=== PATIENT | male | born 1965 | race Caucasian/White ===

== ENCOUNTER → 2018-06-07 07:00 | Outpatient (CLI) | payer BC, SELFPAY ==
--- NOTE | 2018-06-07 07:03 | CA_ITS ---
PROCEDURE: 2-D M-mode and color Doppler study INDICATIONS FOR THE TEST: Chest pain + COPD+ Heart Murmur Tobacco Smoking Palpitations Fatigue Syncope Edema Hypertension+Diabetes Mellitus Rheumatic Fever SOB DORAN Obesity Hyperlipidemia+ Family History HD Additional History WARREN, CAD, CABGX4 PATIENT INFORMATION HEIGHT: 73 WEIGHT:252 GENDER: Male B/P:122/85 2-D/M-MODE INTERPRETATION: 2-D MEASUREMENTS OBSERVED VALUES IN CMS Right Ventricular Dimension (RVDd) 2.4 Interventricular Septum (Thickness)(IVsd) 1.3 Left Ventricular Internal Dimensions(LVIDd) 4.9 Left Ventricular Posterior Wall (Thickness)(LVPWd) 1.0 Aortic Root 4.4 Aortic Cusp Separation 2.2 Left Atrial Dimensions (LAD) 3.0 2D 1. Left atrium is mildly enlarged, left ventricle is normal size, mild concentric left ventricular hypertrophy, visually estimated ejection fraction 55% with no obvious regional wall motion abnormality. 2. The right atrium and right ventricle are normal size and contractility. 3. The aortic valve is minimally thickened and fibrosed. 4. The mitral and tricuspid valve leaflets are grossly normal. 5. The pulmonic valve is poorly visualized. 6. No significant pericardial effusion noted. DOPPLER INTERROGATION: Doppler interrogation of the aortic, mitral and tricuspid valvular presence of mild mitral and tricuspid regurgitation, tricuspid regurgitant jet velocity is insufficient for calculation of the right ventricular systolic pressure, grade 1 diastolic dysfunction seen with tissue Doppler evidence of raised left atrial pressure. CONCLUSION: 1. Mildly enlarged left atrium, normal left ventricular size, mild concentric left ventricular hypertrophy, visually estimated ejection fraction 55% with no obvious regional wall motion abnormality, grade 1 diastolic dysfunction seen with tissue Doppler evidence of raised left atrial pressure. 2. Mild mitral and tricuspid regurgitation 3. No significant pericardial effusion noted.
--- NOTE | 2018-06-07 07:03 | NM_ITS ---
History and Indications: Hypertension, tobacco use, family history, chest pain, shortness of breath, palpitations and fatigue Procedure: Patient received a 0.4 mg of Lexiscan, resting heart rate was 86 bpm, resting blood pressure 180/89, with Lexiscan maximum heart rate achieved was 1 33 bpm is less than 85% of the maximum predicted heart rate, and the blood pressure was 179/102. With Lexiscan patient complained of chest tightness and shortness of breath. Electrocardiogram: Resting electrocardiogram showed sinus rhythm, with Lexiscan there is less than 1.[address] segment depression noted from the baseline EKG. The EKG portion of the Lexiscan Myoview is nondiagnostic. Cardiac stress and resting SPECT images: Cardiac stress and rest SPECT images were obtained using technetium 99 Myoview 31.2 mCi at stress and an 10.0 mCi at rest. Gated SPECT further analysis of segmental wall motion and calculation of the ejection fraction also done. Cardiac stress and rest SPECT images show a fixed defect involving the inferior and posterobasal wall with normal contractility in the gated SPECT is likely secondary to soft tissue attenuation from the diaphragm, no reversible ischemia seen. Computer derived ejection fraction is 57% with no obvious regional wall motion abnormality, right ventricle is normal size and contractility. Conclusion: 1. The EKG portion of the Lexiscan Myoview is nondiagnostic. 2. No obvious scintigraphic evidence of reversible ischemia seen, either derived ejection fraction is 57% with no obvious regional wall motion abnormality, right ventricle is normal size and contractility. 3. Normal Lexiscan Myoview study.
--- NOTE | 2018-06-07 09:54 | HMH.ITSHM ---
lisinopril hctz metoprolol tamsulosin clopidogrel aspirin
== END ==
PROVIDERS: Family Provider Nurse Practitioner Family; PCP Nurse Practitioner Family; Visit Provider Internal Medicine Cardiovascular Disease
DX: I20.9 Angina pectoris, unspecified (principal); I25.10 Atherosclerotic heart disease of native coronary artery without angina pectoris; I10 Essential (primary) hypertension; R06.00 Dyspnea, unspecified; E78.5 Hyperlipidemia, unspecified
CPT/HCPCS: 78452; 93017; 93306; A9502; J2785

== ENCOUNTER → 2018-08-09 10:57 | Outpatient (POV) | payer BC, SELFPAY | PROVIDERS: Family Provider Nurse Practitioner Family; PCP Nurse Practitioner Family; Visit Provider Internal Medicine | DX: Z00.00 Encounter for general adult medical examination without abnormal findings (principal) ==

== ENCOUNTER → 2019-04-25 19:50 | Outpatient (CLI) | payer BC, SELFPAY | PROVIDERS: PCP Nurse Practitioner Family; Visit Provider Nurse Practitioner Family | DX: G47.33 Obstructive sleep apnea (adult) (pediatric) (principal); G47.9 Sleep disorder, unspecified; R40.0 Somnolence | CPT/HCPCS: 95810 ==

== ENCOUNTER → 2019-06-22 09:27 | Outpatient (CLI) | payer BC, SELFPAY ==
[2019-06-22 10:40] VITALS: PULSE 84; PULSE 86
== END ==
PROVIDERS: PCP Nurse Practitioner Family; Visit Provider Internal Medicine
DX: J43.9 Emphysema, unspecified (principal)
CPT/HCPCS: 94060; 94618; 94640; 94726; 94729

== ENCOUNTER → 2019-07-27 07:52 | Outpatient (CLI) | payer BC, SELFPAY ==
[2019-07-27 09:44] LABS: Alanine Aminotransferase 43 U/L (12-78); Albumin Level 3.7 gm/dL (3.4-5.0); Alkaline Phosphatase 75 U/L (46-116); Aspartate Amino Transferase 15 U/L (15-37); Bilirubin,Direct 0.1 mg/dL (0.0-0.2); Bilirubin,Indirect 0.3 mg/dL (0.0-0.9); Bilirubin,Total 0.4 mg/dL (0.2-1.0); Chol/HDL Ratio 5.3 (1-3.5); Cholesterol 210 mg/dL (140-200); HDL Cholesterol 40 mg/dL (27-67); LDL Cholesterol 149 mg/dL (0-130); Total Protein,Serum 6.7 gm/dL (6.4-8.2); Triglycerides 107 mg/dL (30-200); VLDL Cholesterol 21 mg/dL (0-40)
== END ==
PROVIDERS: Visit Provider Urology
DX: E78.5 Hyperlipidemia, unspecified (principal); I11.9 Hypertensive heart disease without heart failure; I25.10 Atherosclerotic heart disease of native coronary artery without angina pectoris; R06.00 Dyspnea, unspecified; R07.89 Other chest pain
CPT/HCPCS: 36415; 80061; 80076

== ENCOUNTER → 2019-09-13 07:41 | Outpatient (CLI) | payer BC, SELFPAY ==
[2019-09-13 08:01] LABS: Blood Urea Nitrogen 25 mg/dL (7-18); Creatinine,Serum 0.97 mg/dL (0.70-1.30); Estimated Glomerular Filt Rate 80 ml/min (>60); GFR (African American) 97 ML/MIN (>60)
--- NOTE | 2019-09-13 08:08 | CT_ITS ---
PROCEDURE: CT LUMBAR SPINE W CON CLINICAL HISTORY: LOW BACK PAIN Low back pain, history of bladder cancer COMPARISON: CT CHEST W CON from 09/13/2019 TECHNIQUE: 100 mL Optiray 350 Axial images obtained with sagittal and coronal reformats. All CT scans at the facility use one or more dose reduction, viz: automated exposure control, ma/kV adjustment per patient size (including targeted exams where dose is matched to indication, i.e. head), or iterative reconstruction technique. FINDINGS: Normal alignment. No fracture or dislocation. L1-L2: Unremarkable. L2-L3: Mild degenerative disc disease with mild concentric bulging disc along with facet and ligamentum hypertrophy with mild bilateral foraminal narrowing. L3-L4: Mild degenerative disc disease with bulging disc along with facet ligamentum hypertrophy with moderate bilateral foraminal narrowing. The disc is very slightly eccentric toward the right. L4-5: Bulging disc with facet and ligamentum hypertrophy. The bulging disc is slightly eccentric toward the right with moderate to severe bilateral foraminal narrowing and bilateral lateral recess narrowing. There narrowing of the canal at 10 mm. L5-S1: There is lumbarization of L5. Postsurgical changes are noted involving the sigmoid colon. There has been prior aortoiliac stent graft placed. 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 No enhancing lesions. No bony destructive process. IMPRESSION: 1. L2-L3: Mild degenerative disc disease with mild concentric bulging disc along with facet and ligamentum hypertrophy with mild bilateral foraminal narrowing. The 2. L3-L4: Mild degenerative disc disease with bulging disc along with facet ligamentum hypertrophy with moderate bilateral foraminal narrowing. The disc is very slightly eccentric toward the right. 3. L4-5: Bulging disc with facet and ligamentum hypertrophy. The bulging disc is slightly eccentric toward the right with moderate to severe bilateral foraminal narrowing and bilateral lateral recess narrowing. There narrowing of the canal at 10 mm. 4. L5-S1: There is lumbarization of L5. Postsurgical changes are noted involving the sigmoid colon. 5. There has been prior aortoiliac stent graft placed. 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 Dictated by: Loco Rose MD 09/14/2019 11:23 Electronically signed by Loco Rose MD in [place] 09/14/2019 11:23
--- NOTE | 2019-09-13 08:08 | CT_ITS ---
PROCEDURE: CT CHEST W CON CLINCAL INDICATION: CHEST PAIN Chest pain radiating into the back COMPARISON: [facility] CT angio chest from 11/20/2018 TECHNIQUE: IV Contrast: 75ml Optiray 350 Axial images obtained with sagittal and coronal reformats. All CT scans at the facility use one or more dose reduction, viz: automated exposure control, ma/kV adjustment per patient size (including targeted exams where dose is matched to indication, i.e. head), or iterative reconstruction technique. FINDINGS: There is extensive coronary artery calcification. Atherosclerotic calcification also involves the aortic arch. No evidence of aortic aneurysm or dissection. Small amount fluid is present in the superior pericardial recess. There are few scattered small mediastinal lymph nodes which are unchanged. No mediastinal or hilar mass or adenopathy. No evidence of enlarged pulmonary arteries or central pulmonary embolus. Centrilobular emphysema with hyperinflation/COPD. No suspicious pulmonary nodules. No lobar consolidation or collapse or pleural effusion. Upper abdominal images are unremarkable. There are degenerative changes in the thoracic spine. No acute bony anomalies. Upper abdominal images show fatty liver infiltration IMPRESSION: 1. No acute findings. 2. Extensive coronary artery calcification consistent with coronary artery disease Dictated by: Loco Rose MD 09/14/2019 11:07 Electronically signed by Loco Rose MD in [place] 09/14/2019 11:07
== END ==
PROVIDERS: PCP Nurse Practitioner Family; Visit Provider Nurse Practitioner
DX: M54.5 Low back pain (principal); R07.89 Other chest pain
CPT/HCPCS: 36415; 71260; 72132; 82565; 84520; Q9967

== ENCOUNTER → 2019-10-23 09:43 | Outpatient (CLI) | payer BC, SELFPAY ==
[2019-10-23 11:10] LABS: Alanine Aminotransferase 37 U/L (12-78); Albumin Level 3.8 gm/dL (3.4-5.0); Albumin/Globulin Ratio 1.2 (1.1-1.8); Alkaline Phosphatase 89 U/L (46-116); Aspartate Amino Transferase 14 U/L (15-37); Bilirubin,Total 0.2 mg/dL (0.2-1.0); Blood Urea Nitrogen 20 mg/dL (7-18); Calcium 8.6 mg/dL (8.5-10.1); Carbon Dioxide 30 mmol/L (21.0-32.0); Chloride 105 mmol/L (98-107); Chol/HDL Ratio 6.4 (1-3.5); Cholesterol 197 mg/dL (140-200); Creatinine,Serum 0.81 mg/dL (0.70-1.30); Estimated Glomerular Filt Rate 99 ml/min (>60); GFR (African American) 119 ML/MIN (>60); Globulin 3.1 gm/dl (1.3-3.2); Glucose 112 mg/dL (74-106); HDL Cholesterol 31 mg/dL (27-67); LDL Cholesterol 87 mg/dL (0-130); Prostate Specific Ag Screen 0.3 ng/mL (0.0-4.0); Sodium 143 mmol/L (136-145); Total Protein,Serum 6.9 gm/dL (6.4-8.2); Triglycerides 395 mg/dL (30-200); VLDL Cholesterol 79 mg/dL (0-40)
[2019-10-23 11:29] LABS: Basophils # 0.1 K/mm3 (0-0.2); Basophils % 1.1 % (0.1-2.0); Eosinophils # 0.3 K/mm3 (0.0-0.4); Eosinophils % 2.7 % (0.1-12.0); Hematocrit 42.9 % (42.0-52.0); Hemoglobin 14.1 g/dL (14.1-18.0); Lymphocytes # 2.9 K/mm3 (0.7-4.5); Lymphocytes % 30.1 % (10-50); Mean Corpuscular HGB Conc 32.9 g/dL (31.8-35.4); Mean Corpuscular Hemoglobin 32.1 pg (27.0-31.2); Mean Corpuscular Volume 97.4 fl (80-94); Mean Platelet Volume 7.9 fl (7.4-10.4); Monocytes # 0.7 K/mm3 (0.1-1.0); Monocytes % 7.1 % (1.7-9.3); Neutrophils # 5.7 K/mm3 (1.8-7.8); Platelet Count 463 K/mm3 (142-424); Red Blood Count 4.41 M/mm3 (4.60-6.20); Red Cell Distribution Width 12.8 % (11.5-17.5); White Blood Count 9.7 K/mm3 (4.8-10.8)
== END ==
PROVIDERS: Visit Provider Nurse Practitioner
DX: I10 Essential (primary) hypertension (principal); E78.2 Mixed hyperlipidemia; N40.0 Benign prostatic hyperplasia without lower urinary tract symptoms
CPT/HCPCS: 36415; 80053; 80061; 85025; G0103

== ENCOUNTER → 2019-10-24 09:24 | Outpatient (CLI) | payer BC, SELFPAY ==
--- NOTE | 2019-10-24 09:28 | MR_ITS ---
PROCEDURE: MR LUMBAR SPINE WO/W CON CLINICAL INDICATION: OTHER INTERVERTEBRAL DISC DEGENERATION, LUMBAR REGION Degenerative disc disease, low back pain with bilateral leg weakness, twisting injury with pain and numbness COMPARISON: CT LUMBAR SPINE W CON from 09/13/2019 TECHNIQUE: Routine multiplanar multi echo sequences are performed without and with gadolinium enhancement. 3-D MIP and myelographic images are also rendered and reviewed FINDINGS: There is normal alignment. T12-L1 has an unremarkable appearance. L1-L2: Mild facet and ligamentum hypertrophy L2-L3: Mild disc desiccation with minimal bulging disc with mild facet and ligamentum hypertrophy with moderate bilateral foraminal narrowing. L3-L4: Bulging disc with facet and ligamentum hypertrophy with moderate bilateral foraminal narrowing. L4-5: Bulging disc with a small right paracentral/foraminal and a small central disc protrusion along with moderate facet and ligamentum hypertrophy with moderate to severe bilateral foraminal narrowing and right lateral recess narrowing. There is a small annular fissure posteriorly. L5-S1: There is partial sacralization of L5. This should be taken into account if any intervention is contemplated. No extruded herniated disc. No enhancing lesions are evident. 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 L2-L3: Mild disc desiccation with minimal bulging disc with mild facet and ligamentum hypertrophy with moderate bilateral foraminal narrowing. 2. L3-L4: Bulging disc with facet and ligamentum hypertrophy with moderate bilateral foraminal narrowing. 3. L4-5: Bulging disc with a small right paracentral/foraminal and a small central disc protrusion along with moderate facet and ligamentum hypertrophy with moderate to severe bilateral foraminal narrowing and right lateral recess narrowing. There is a small annular fissure posteriorly. 4. L5-S1: There is partial sacralization of L5. This should be taken into account if any intervention is contemplated. 5. No extruded herniated disc. No enhancing lesions are evident Dictated by: Loco Rose MD 10/25/2019 13:49 Electronically signed by Loco Rose MD in [place] 10/25/2019 13:49
--- NOTE | 2019-10-24 10:33 | HMH.ITSHM ---
Current Home Medications as stated by this patient Brock Jimenez or sales representative groceries. []ASPIRIN ATORVASTATIN BISOPROL CLOPIDOGREL ISOSORB FLOMAX VENTENILION RANOLAZINE ZORSARTEN
== END ==
PROVIDERS: PCP Nurse Practitioner; Visit Provider Nurse Practitioner
DX: M51.36 Other intervertebral disc degeneration, lumbar region (principal)
CPT/HCPCS: 72158; 76376; A9576

== ENCOUNTER → 2020-09-05 06:50 | Outpatient (CLI) | payer MEDICARE, MEDICAID, SELFPAY ==
--- NOTE | 2020-09-05 06:51 | NM_ITS ---
APPROVED REPORT Exam: Nuclear Stress Test Indication: CAD, HTN, High cholesterol, Tobacco use, Family history, Chest pain, SOB, Fatigue Patient Location: Outpatient Stress Tech: Chikis [place] Tech:Mary Monae MARCELLEMagdalena RT(R)(N) Ht: 5 ft 11 in Wt: 229 lbs HR: 77 bpm BP: 129/82 mmHg BSA: 2.23 m2 BMI: 31.9 History: CAD, HTN, High cholesterol, Tobacco use, Family history, Chest pain, SOB, Fatigue Procedure: Patient received a 0.4 mg of intravenous Lexiscan, resting heart rate 77 bpm, resting blood pressure 129/82 mmHg, with Lexiscan maximum heart rate achived was 99 bpm which is Less than 85% o % of the maximum predicted heart rate and blood pressure was 137/88 mmHg. With Lexiscan, patient denied any complaint of chest pain. Electrocardiogram Resting electrocardiogram shows sinus rhythm, with Lexiscan there is less than 1.[address] segment depression noted from the baseline EKG. The EKG portion of the Lexiscan is nondiagnostic. Cardiac Stress and Resting SPECT Images: Cardiac Stress and Resting SPECT images were obtained using technetium 99m Myoview 32.4 mCi stress and 9.98 mCi at rest. Gated SPECT for the analysis of segmental wall motion and calculation of the ejection fraction also done, prone images were also obtained to exclude presence of diaphragmatic attenuation. Cardiac stress and resting SPECT images show fixed defect involving the inferior wall which is uniform on prone images is likely secondary to soft tissue attenuation, no reversible ischemia seen. Computer derived ejection fraction is 55% with no regional wall motion abnormality, right ventricle is normal size and contractility. Conclusion: 1. The EKG portion of the Lexiscan Myoview is nondiagnostic 2. No scintigraphic evidence of reversible ischemia seen, computer derived ejection fraction is 55% with no regional wall motion abnormality, right ventricle is normal size and contractility. 3. Normal Lexiscan Myoview study. Electronically signed by : Osman Zuñiga, 09/06/2020 15:15:24
--- NOTE | 2020-09-05 06:51 | CA_ITS ---
APPROVED REPORT Exam: Pharmacologic Technologist: Maryanne Diaz, Ht: 5 ft 11 in Wt: 229 lbs BSA: 2.23 m2 HR: 77 bpm BP: 129/82 mmHg Rhythm: NSR,NORMAL Medical History Medical History: CAD s/p stent, HTN, Hyperlipidemia Medications: Isosorbide,,,,, Asa,,,,, Trazadone,,,,, Flomax,,,,, Losartan,,,,, Atorvastatin,,,,, Albuterol,,,,, Plavix,,,,, BisOPROLOL,,,,, Ranexa,,,,, Nitro,,,,, ANoro,,,,, Cardiac Risk Factors: HTN, Hyperlipidemia, Smoking, FHX of CAD Stress Test Details Test: LEXISCAN HR Resting HR: 77 bpm Max Heart Rate (APMHR): 163 bpm Max HR Achieved: 102 bpm Target HR (85% APMHR): 138 bpm % of APMHR: 62 Recovery HR: 90 bpm BP Resting BP: 129.0/82.0 mmHg Max BP: 132.0/88.0 mmHg Recovery BP: 123.0/80.0 mmHg ECG Resting ECG: NORMAL SINUS,NORMAL Clinical Exercise duration: 04:15 min Highest Stage Achieved: Exercise capacity: 1.0 METs Stress ECG Conclusion DURING INFUSION OF LEXISCAN PATIENT HAD SOA AND MALAISE. RARE PVC. NO SIGNIFICANT ST-T CHANGES . UNREMARKABLE LEXISCAN STRESS. MYOVIEW IMAGES REPORTED SEPARATELY. Electronically signed by : Osman Zuñiga, 09/06/2020 15:07:57
--- NOTE | 2020-09-05 06:51 | CA_ITS ---
APPROVED REPORT EXAM: Comprehensive 2D, Doppler, and color-flow Echocardiogram Typist: Briana Meneses RVT Ht: 5 ft 11 in Wt: 229lbs BSA: 2.23 BP: 142/94 mmHg Indications: SOA,CAD STENT,TACHYCARDIA,SMOKER,HTN,HLD 2D Dimensions Aortic Root 1.91 cm M: 3.1 - 3.7 M-Mode Dimensions RVDd 3.65 cm (0.9-2.6) LA Diam 3.67 cm (1.9-4.0) LVDd 3.97 cm (3.5-5.7) Ao Diam 3.95 cm (2.0-3.7) LVDs 2.73 cm (3.5-5.7) IVSd 0.92 cm (0.6-1.1) PWd 1.32 cm (0.6-1.1) EF (Teich) 59.60% FS 31.20% EDV (Teich) 68.80 mL ESV (Teich) 27.80 mL LV Diastology E Decel Time 200.00 (160-240 msec) E/A Ratio 0.6 MED E' 4.90 (< 7 cm/sec) E'/MED E' Ratio 8.45 (>14) LAT E' 6.90 (<10 cm/sec) E/LAT E' Ratio 6.00 (>14) Mitral Valve MV E Max Lio. 41.00 (40-130 cm/s) MV A Velocity 67.00 (40-130 cm/s) E/A Ratio 0.62 MV Decel. Time 200.00 (160-240 ms) MV PHT 59.00 ms Pulmonary Valve PV Peak Velocity 87.00 (50-150 cm/s) Left Ventricle Left atrium is mildly enlarged, definitely is normal size, mild concentric left-ventricular hypertrophy, visually estimated ejection fraction 55% with no regional wall motion abnormality, grade 1 diastolic dysfunction seen without tissue Doppler evidence of raise left atrial pressure. Right Ventricle Right atrium and right ventricle mildly enlarged with normal contractility. Aortic Valve Aortic valve is minimally thickened and fibrosed, there is no aortic stenosis or aortic insufficiency. Mitral Valve Mitral valve is grossly normal, there is no mitral regurgitation. Tricuspid Valve Tricuspid valve is grossly normal, there is mild tricuspid regurgitation, tricuspid regurgitation jet velocity is inadequate for calculation of the left ventricular systolic pressure. Pulmonic Valve Pulmonic valve is poorly visualized. Great Vessels Aortic root is normal size. Pericardium No significant pericardial effusion noted. Conclusion 1. Mild biatrial enlargement, normal left ventricular size, mild concentric left ventricular hypertrophy, visually estimated ejection fraction 55% with no regional wall motion abnormality, grade 1 diastolic dysfunction seen without tissue Doppler evidence of raise left atrial pressure. 2. Mildly lateral ventricle with normal contractility. 3. Mild mitral and tricuspid regurgitation. 4. No significant pericardial effusion noted. Electronically signed by : Osman Zuñiga, 09/05/2020 15:17:43
--- NOTE | 2020-09-05 10:38 | HMH.ITSHM ---
Current Home Medications as stated by this patient Brock Jimenez or product support sales representative. [] ranolazine asa tamsulosin atorvastatin
== END ==
PROVIDERS: PCP Nurse Practitioner; Visit Provider Nurse Practitioner Family
DX: E78.2 Mixed hyperlipidemia (principal); F17.200 Nicotine dependence, unspecified, uncomplicated; I10 Essential (primary) hypertension; I25.118 Atherosclerotic heart disease of native coronary artery with other forms of angina pectoris; R00.0 Tachycardia, unspecified; R06.09 Other forms of dyspnea; R07.9 Chest pain, unspecified
CPT/HCPCS: 78452; 93017; 93306; A9502; J2785

== ENCOUNTER → 2020-09-10 14:40 | Outpatient (CLI) | payer MEDICARE, MEDICAID, SELFPAY ==
[2020-09-10 15:24] LABS: Troponin I < 0.01 ng/ml (0.00-0.034)
== END ==
PROVIDERS: Visit Provider Nurse Practitioner Family
DX: M79.602 Pain in left arm (principal)
CPT/HCPCS: 36415; 84484

== ENCOUNTER → 2021-02-03 12:30 | Outpatient (CLI) | payer MEDICARE, MEDICAID, SELFPAY | PROVIDERS: PCP Nurse Practitioner; Visit Provider Nurse Practitioner Family | DX: E78.5 Hyperlipidemia, unspecified (principal); I10 Essential (primary) hypertension; I25.10 Atherosclerotic heart disease of native coronary artery without angina pectoris; M79.602 Pain in left arm; R00.2 Palpitations; R06.00 Dyspnea, unspecified | CPT/HCPCS: 93270 ==

== ENCOUNTER → 2021-11-20 13:43 | Outpatient (CLI) | payer MEDICARE, MEDICAID, SELFPAY ==
--- NOTE | 2021-11-20 14:00 | CA_ITS ---
APPROVED REPORT Left Lower Extremity Venous Study for DVT. [employer] Supervisor: CAROLINE AlasT Indications Lower Extremity Pain: Left PT C/O KNOT UPPER LEFT THIGH X SEVERAL MONTHS Vein Imaging CFV (L): compressive, spontaneous, phasic, augmentation FEM (L): compressive, spontaneous, phasic, augmentation POP (L): compressive, spontaneous, phasic, augmentation PTV (L): Compressible GSV (L): Compressible Peroneals (L):Compressible GAS (L): Compressible Findings Study suggests no evidence of DVT or SVT of the left lower extremity. Conclusion Study suggests no evidence of DVT or SVT of the left lower extremity. Electronically signed by : Loco Rose MD 11/20/2021 14:47:08
--- NOTE | 2021-11-20 14:29 | US_ITS ---
PROCEDURE: US EXTREMITY LT LIMITED CLINICAL INDICATION: LOCALIZED SWELLING, MASS AND LUMP, UNSPECIFIED COMPARISON: No exams were available for comparison FINDINGS: There is an oblong area of heterogeneous I so to slightly hyper echogenicity in the area of palpable concern measuring approximately 6.7 by 4 by 1.6 cm in the subcutaneous tissues and may represent a lipoma. No fluid collections. IMPRESSION: Palpable abnormality corresponds to an area of somewhat heterogeneous echogenicity fairly well-circumscribed and could represent a lipoma or hematoma. Neoplastic process is felt to be less likely but not completely excluded. MRI without and with contrast may provide further evaluation. Dictated by: Loco Rose MD 11/20/2021 15:51 Loco Rose MD in [place] 11/20/2021 15:51
== END ==
PROVIDERS: PCP Nurse Practitioner; Visit Provider Nurse Practitioner
DX: M79.605 Pain in left leg (principal); R22.9 Localized swelling, mass and lump, unspecified
CPT/HCPCS: 76882; 93971

== ENCOUNTER → 2021-12-05 08:03 | Outpatient (CLI) | payer MEDICARE, MEDICAID, SELFPAY ==
--- NOTE | 2021-12-05 08:39 | MR_ITS ---
FINAL REPORT CLINICAL HISTORY: LOCALIZED SWELLING, MASS AND LUMP. pt fell x2yrs ago and knot came up that has gotten bigger and sore to touch. pt marker on knot. 20ml prohance given. FINDINGS: Multiplanar MR imaging of the left femur were obtained without and with contrast. Portions of the images are distorted by machine artifact. A marker was placed at the anterior proximal thigh at the site of the palpable abnormality. There is mildly increased signal in the region of the rectus femoris muscle, may represent mild muscle injury or myositis. No other mass or fluid collection is identified. There is no evidence of abnormal contrast enhancement. IMPRESSION: Mild muscle injury versus myositis rectus femoris muscle. Reviewed, Interpreted and Dictated by Luis Manuel Menchaca III, MD Transcribed by Bonny Monet Authenticated by Luis Manuel Menchaca III, MD on 12/05/2021 11:59:48 AM [facility]
[2021-12-05 08:54] LABS: Blood Urea Nitrogen 16 mg/dl (9-20); Estimated Glomerular Filt Rate 116 ml/min (>60); GFR (African American) 140 ML/MIN (>60)
[2021-12-05 12:33] LABS: Alanine Aminotransferase 24 U/L (12-78); Albumin Level 4.5 g/dl (3.5-5.0); Albumin/Globulin Ratio 1.5 (1.1-1.8); Alkaline Phosphatase 104 U/L (38-126); Aspartate Amino Transferase 38 U/L (17-59); Bilirubin,Total 0.4 mg/dl (0.2-1.3); Calcium 9.2 mg/dl (8.4-10.2); Carbon Dioxide 29 mmol/L (22.0-30.0); Chloride 102 mmol/L (98-107); Glucose 156 mg/dl (74-100); Sodium 139 mmol/L (136-145); Total Protein,Serum 7.5 g/dl (6.3-8.2)
== END ==
PROVIDERS: PCP Nurse Practitioner; Visit Provider Nurse Practitioner
DX: R22.42 Localized swelling, mass and lump, left lower limb (principal); I10 Essential (primary) hypertension
CPT/HCPCS: 36415; 73720; 80053; A9576

== ENCOUNTER → 2022-04-03 09:46 | Outpatient (CLI) | payer MEDICARE, MEDICAID, SELFPAY ==
--- NOTE | 2022-04-03 09:52 | XR_ITS ---
FINAL REPORT CLINICAL HISTORY: PUNCTURE WOUND W/OUT FOREIGN BODY OF LT HAND MEDIAL ASPECT AROUND 5TH METACARPAL, REDNESS AND SWELLING FINDINGS: LEFT HAND: Three views of the left hand were obtained. There are chronic fractures of the distal radius and ulnar styloid process. There are mild degenerative changes. Soft tissues are unremarkable. No acute fracture or foreign body is identified. IMPRESSION: Chronic fractures as above. No acute fracture foreign body. Reviewed, Interpreted and Dictated by Luis Manuel Menchaca III, MD Transcribed by Christine Mederos Authenticated by Luis Manuel Menchaca III, MD on 04/03/2022 11:08:27 AM [facility]
== END ==
PROVIDERS: PCP Nurse Practitioner; Visit Provider Nurse Practitioner Family
DX: S61.432A Puncture wound without foreign body of left hand, initial encounter (principal)
CPT/HCPCS: 73120

== ENCOUNTER → 2023-05-28 08:52 | Outpatient (CLI) | payer MEDICARE, MEDICAID, SELFPAY ==
--- NOTE | 2023-05-28 08:55 | CA_ITS ---
FINAL REPORT TECHNIQUE: Grayscale, color Doppler and duplex Doppler ultrasound of the kidneys, aorta and renal arteries was performed. Multiple velocities were measured. CLINICAL HISTORY: HTN,HLD FINDINGS: Aorta velocity: 56 cm/sec Right kidney: 11.4 cm. There is no evidence of hydronephrosis. There is a 2.1 cm probable cyst in the lower pole of the right kidney. Right intrarenal RI: .53 Right renal artery velocity: 164 cm/sec. Right RAR (Renal artery-Aortic Ratio): 2.9 Left Kidney: 12.2 cm. No evidence of hydronephrosis or mass. Left intrarenal RI: .59 Left renal artery velocity: 119 cm/sec. Left RAR (Renal Artery-Aortic Ratio): 2.1 IMPRESSION: No evidence of significant renal artery stenosis. Probable right renal cyst. Reviewed, Interpreted and Dictated by uLis Manuel Menchaca III, MD Transcribed by Bnony Monet Authenticated and [facility]
--- NOTE | 2023-05-28 09:22 | US_ITS ---
FINAL REPORT CLINICAL HISTORY: Z72.0 - Tobacco use FINDINGS: RENAL ULTRASOUND Ultrasound images of the kidneys were obtained. Limited images of the liver parenchyma demonstrates increased echogenicity consistent with fatty infiltration. The right kidney measures 10.4 cm in length. It is normal echogenicity. There is no mass or hydronephrosis. The left kidney measures 10.4 cm in length. It is normal echogenicity. There is no mass or hydronephrosis. IMPRESSION: Normal renal ultrasound. Fatty liver. Reviewed, Interpreted and Dictated by Luis Manuel Menchaca III, MD Transcribed by Whitney Hussein Authenticated and [facility]
== END ==
LOC: RT 08:53
PROVIDERS: PCP Nurse Practitioner; Visit Provider Nurse Practitioner
DX: I10 Essential (primary) hypertension (principal); Z72.0 Tobacco use
CPT/HCPCS: 76770; 93976

== ENCOUNTER 2024-08-04 13:16 | Emergency (ER) | payer MEDICARE, MEDICAID, SELFPAY ==
[2024-08-04] VITALS (7 sets, daily range): BP systolic 91–121; BP diastolic 59–74; PULSE 78–89; RESP 13–18; TEMP 36.4–36.7; O2SAT 92–95; BMI 31.4; BMI 31.2
--- NOTE | 2024-08-04 13:35 | CT_ITS ---
FINAL REPORT TECHNIQUE: Pre-and postcontrast images of the abdomen through the pelvis were performed by computed tomography. Extensive 3-D reconstruction images were performed. A CTA was performed. This study was performed with techniques to keep radiation doses as low as reasonably achievable (ALARA). Individualized dose reduction techniques using automated exposure control or adjustment of mA and/or kV according to the patient's size were employed. CLINICAL HISTORY: Severe abd pain, tightness, and hx of AAA w stents COMPARISON: None FINDINGS: ABDOMEN: There is bibasilar atelectasis or scarring. Precontrast images demonstrate no evidence of nephrolithiasis. There is a small right renal cyst measuring 18 mm with no follow-up recommended. There is fatty infiltration of the liver. Enlarged adrenal glands are favored to represent hyperplasia. The spleen and pancreas are unremarkable. Postoperative changes are noted in the anterior abdominal wall. PELVIS: The appendix is not identified. Small bowel wall thickening is favored to be inflammatory. Urinary bladder wall thickening is likely to be inflammatory. There is no significant free fluid or adenopathy. The bony pelvis is unremarkable. There are postoperative changes in the rectosigmoid junction. CTA: Aortic stent graft is present and patent. The annular sac measures up to 4.0 cm. There is no evidence of graft endoleak on these images. The celiac axis is normal. The SMA is unremarkable. The KOBE is occluded proximally. There are 2 renal arteries on each side without evidence of renal artery stenosis. There is no evidence of iliac artery stenosis. IMPRESSION: Patent aortic stent graft without evidence of endoleak. No evidence of stenosis. Small bowel wall thickening favored to be inflammatory. Bladder wall thickening, likely inflammatory. Reviewed, Interpreted and Dictated by Luis Manuel Menchaca III, MD Transcribed by Christine Mederos Authenticated and . [facility]
[2024-08-04 13:47] LABS: Albumin Level 4.8 g/dl (3.5-5.0); Chloride 103 mmol/L (98-107); Potassium 4.4 mmoL/L (3.5-5.1); Sodium 138 mmol/L (136-145)
[2024-08-04] MEDS: MORPHINE 4MG/ML SYRINGE 4 MG IV (13:47)
[2024-08-04] MEDS: ONDANSETRON 4MG/2ML VIAL 4 MG IV (13:47)
[2024-08-04 13:48] LABS: Microscopic, Urine URINE MICROSCOPIC (MICROSCOPIC)
[2024-08-04 13:49] LABS: Blood Urea Nitrogen 22 mg/dl (9-20); Creatinine Clearance Estimated 101 mL/min (50-200); Estimated Glomerular Filt Rate 68 ml/min (>60); GFR (African American) 82 ML/MIN (>60)
[2024-08-04 13:50] LABS: Alanine Aminotransferase 60 U/L (12-78); Albumin/Globulin Ratio 1.5 (1.1-1.8); Alkaline Phosphatase 71 U/L (38-126); Anion Gap 9.4 mEq/L (5-15); Aspartate Amino Transferase 35 U/L (17-59); Bilirubin,Total 1.6 mg/dl (0.2-1.3); Calcium 9.4 mg/dl (8.4-10.2); Carbon Dioxide 30 mmol/L (22.0-30.0); Globulin 3.3 g/dL (1.3-3.2); Glucose 191 mg/dl (74-100); Total Protein,Serum 8.1 g/dl (6.3-8.2)
[2024-08-04 13:50] LABS: Appearance,Urine SL CLOUDY (Clear); Blood, Urine Negative (Negative); Color,Urine AMBER (Yellow); Glucose,Urine (UA) Negative (Negative); Ketones,Urine TRACE (Negative); Leukocyte Esterase,Urine TRACE (Negative); Nitrate,Urine POSITIVE (Negative); PH,Urine 5.5 (5.0-8.5); Protein,Urine 2+ (Negative); Specific Gravity, Urine >= 1.030 (1.005-1.030)
[2024-08-04 13:51] LABS: Lactic Acid 1.9 mmol/L (0.7-2.1)
[2024-08-04 13:53] LABS: Basophils # 0.1 K/mm3 (0-0.2); Basophils % 0.8 % (0.1-2.0); Eosinophils # 0.4 K/mm3 (0.0-0.4); Hematocrit 53.2 % (42.0-52.0); Hemoglobin 17.1 g/dL (14.1-18.0); Lymphocytes # 2.3 K/mm3 (0.7-4.5); Lymphocytes % 17.3 % (10-50); Mean Corpuscular HGB Conc 32.1 g/dL (31.8-35.4); Mean Corpuscular Hemoglobin 32.3 pg (27.0-31.2); Mean Corpuscular Volume 100.4 fl (80-94); Mean Platelet Volume 7.8 fl (7.4-10.4); Monocytes % 7.8 % (1.7-9.3); Neutrophils # 9.3 K/mm3 (1.8-7.8); Neutrophils % 71.1 % (37.0-80.0); Platelet Count 383 K/mm3 (142-424); Red Cell Distribution Width 13.8 % (11.5-17.5); White Blood Count 13.1 K/mm3 (4.8-10.8)
[2024-08-04 13:55] LABS: Bilirubin,Urine 2+ (Negative)
[2024-08-04 13:56] LABS: Lipase 57 U/L (23-300)
[2024-08-04 13:58] LABS: Amorphous Sediment,Urine 2+ /lpf; Bacteria,Urine 3+ /lpf
[2024-08-04 14:02] LABS: Hyaline Casts,Urine 20-50 #/lpf (0)
[2024-08-04] MEDS: IOPAMIDOL-370 (76%);100ML BOTTLE 80 ML IV (14:26)
[2024-08-04] MEDS: 0.9 % SODIUM CHLORIDE 50 ML VIAL IV (14:26)
[2024-08-04] MEDS: SODIUM CHLORIDE 0.9% 10ML SYR (RAD ONLY) 10 ML IV (14:26)
--- NOTE | 2024-08-04 15:22 | PC.NURSE ---
DR GALLARDO AT BEDSIDE TO UPDATE PT AND FAMILY
--- NOTE | 2024-08-04 15:26 | ED_ITS ---
Discharge Plan Disposition Patient Disposition: Home, Self-Care Condition: Good Prescriptions Prescriptions: New cefdinir 300 mg capsule 300 mg PO BID 7 Days Qty: 14 0RF ondansetron 4 mg tablet,disintegrating 4 mg PO Q6H PRN (Reason: nausea and vomiting) 3 Days Qty: 12 0RF No Action albuterol sulfate 0.63 mg/3 mL solution for nebulization 0.63 mg INHALATION QID PRN (Reason: soa) albuterol sulfate [Ventolin HFA] 90 mcg/actuation HFA aerosol inhaler 1 puff INHALATION Q4-6H PRN (Reason: soa) tamsulosin [Flomax] 0.4 mg capsule,extended release 24hr 0.4 mg PO DAILY cyclobenzaprine 10 mg tablet 10 mg PO TID PRN Patient Comments: TAKE 1 TABLET BY MOUTH THREE TIMES DAILY NEEDED trazodone 50 mg tablet 50 mg PO QHS nitroglycerin 0.4 mg tablet, sublingual 0.4 mg SUBLINGUAL Q5-15M PRN (Reason: chest pain) Qty: 25 1RF Rx Instructions: until response; do not exceed 3 doses per episode Trelegy Ellipta 100-62.5-25 mcg blister with device 1 inh INHALATION DAILY aspirin [Adult Low Dose Aspirin] 81 mg tablet,delayed release (DR/EC) 81 mg PO DAILY Qty: 30 5RF isosorbide mononitrate 120 mg tablet extended release 24 hr 120 mg PO DAILY Qty: 90 3RF clopidogrel 75 mg tablet See Rx Instructions .ROUTE .COMPLEX Qty: 30 3RF Dose Instruction: TAKE 1 TABLET BY MOUTH ONCE DAILY Rx Instructions: TAKE 1 TABLET BY MOUTH ONCE DAILY losartan 100 mg tablet See Rx Instructions .ROUTE .COMPLEX Qty: 90 2RF Dose Instruction: TAKE 1 TABLET BY MOUTH ONCE DAILY Rx Instructions: TAKE 1 TABLET BY MOUTH ONCE DAILY bisoprolol fumarate 10 mg tablet See Rx Instructions .ROUTE .COMPLEX Qty: 270 2RF Dose Instruction: TAKE 1.5 TABLETS BY MOUTH TWICE DAILY Rx Instructions: TAKE 1.5 TABLETS BY MOUTH TWICE DAILY amlodipine 5 mg tablet See Rx Instructions .ROUTE .COMPLEX Qty: 90 2RF Dose Instruction: TAKE 1 TABLET BY MOUTH ONCE DAILY Rx Instructions: TAKE 1 TABLET BY MOUTH ONCE DAILY atorvastatin 80 mg tablet See Rx Instructions .ROUTE .COMPLEX Qty: 90 2RF Dose Instruction: TAKE 1 TABLET BY MOUTH ONCE DAILY Rx Instructions: TAKE 1 TABLET BY MOUTH ONCE DAILY ranolazine 1,000 mg tablet extended release 12 hr See Rx Instructions .ROUTE .COMPLEX Qty: 180 3RF Dose Instruction: TAKE 1 TABLET BY MOUTH TWICE DAILY Rx Instructions: TAKE 1 TABLET BY MOUTH TWICE DAILY Referrals Follow up/Referrals: Lali Domingo APRN [Primary Care Provider] - See instructions Activity Restrictions/Add. Instructions Additional Instructions/Restrictions: You have been evaluated in the ED for your complaints. You may follow-up with your PCP in the next 3 to 5 days. Please return to ED for any new or worsening symptoms. I have written for cefdinir to treat your UTI. Please take this as prescribed. Your symptoms today are due to a gastroenteritis. I do recommend a bland diet at this time. Clinical Impressions Clinical Impression: UTI (urinary tract infection), Gastroenteritis, Abdominal pain Instructions Patient Instructions: DI for Acute Abdominal Pain Print Language Print Language: Surinamese Discharge ED Provider: Winston Bryant General Adult HPI General Chief complaint: Abdominal Pain Stated complaint: pain in abd and back Time Seen by Provider: 08/04/24 14:18 Mode of Arrival: Ambulatory Source of Information: Patient and Spouse Limitations: No Limitations Description of Symptoms (Recalled from ER Triage Doc. by RN): PT AND REPORT HE HAS BEEN SICK X3D. PT C/O GENERALIZED ABD PAIN 10/10 THAT IS WORSE ABOVE HIS UMBILICUS AND INTERMITTANTLY IMPROVES SLIGHTLY. PT IS DISTENDED AND TENDER TO PALPATION. PT ALSO REPORTS MIDDLE BACK PAIN THAT RADIATES ALL THE WAY ACCROSS HIS BACK THAT IS CONSTANT AND A 9/10. PT REPORTS N/V/D. PT HAS A HX OF BLADDER CANCER IN 2014 THAT HE RECEIVED RADIATION FOR. PT ALSO HAS A HX OF ABD ANUERYSM WITH STENTS, PT SEES AT FOR THIS. PT REPORTS MINIMAL BURNING WITH URINATION. PTS URINE IS CLOUDY AND TEA COLORED. History of Present Illness HPI narrative: 59-year-old male with past medical history significant for history of aortic aneurysm with stents, history of bladder cancer in 2014 in remission, HTN, COPD, HLD, CAD, presents today for evaluation concerning abdominal pain with associated nonbloody diarrhea over the past 3 days. He also states that during the onset of his symptoms he had an episode of emesis which has since resolved. He denies having any fevers, chills, chest pain, shortness of breath however he does note dysuria without hematuria. He denies any other complaints at this time Related Data Home Medications ?Medication ?Instructions ?Recorded ?Confirmed albuterol sulfate 0.63 mg/3 mL 0.63 mg inhalation QID PRN soa 05/17/18 05/04/23 solution for nebulization albuterol sulfate 90 mcg/actuation 1 puff inhalation Q4-6H PRN soa 05/17/18 05/04/23 aerosol inhaler (Ventolin HFA) tamsulosin 0.4 mg capsule (Flomax) 0.4 mg PO DAILY bladder 05/17/18 05/04/23 cyclobenzaprine 10 mg tablet 10 mg PO TID PRN 08/20/20 05/04/23 trazodone 50 mg tablet 50 mg PO QHS 08/20/20 05/04/23 fluticasone fur. 100 mcg-umeclid 1 inh inhalation DAILY 09/01/21 05/04/23 62.5 mcg-vilant 25 mcg inhalat.powder (Trelegy Ellipta) Previous Rx's ?Medication ?Instructions ?Recorded nitroglycerin 0.4 mg sublingual 0.4 mg sublingual Q5-15M PRN chest 01/29/21 tablet pain #25 tabs aspirin 81 mg tablet,delayed 81 mg PO DAILY heart health #30 03/02/22 release (Adult Low Dose Aspirin) tabs isosorbide mononitrate 120 mg 120 mg PO DAILY #90 tabs 03/02/22 tablet,extended release 24 hr amlodipine 5 mg tablet See Rx Instructions .Route 08/23/23 .COMPLEX #90 tabs atorvastatin 80 mg tablet See Rx Instructions .Route 08/23/23 .COMPLEX #90 tabs bisoprolol fumarate 10 mg tablet See Rx Instructions .Route 08/23/23 .COMPLEX #270 tabs clopidogrel 75 mg tablet See Rx Instructions .Route 08/23/23 .COMPLEX #30 tabs losartan 100 mg tablet See Rx Instructions .Route 08/23/23 .COMPLEX #90 tabs ranolazine 1,000 mg See Rx Instructions .Route 08/23/23 tablet,extended release,12 hr .COMPLEX #180 tabs cefdinir 300 mg capsule 300 mg PO BID 7 days #14 caps 08/04/24 ondansetron 4 mg disintegrating 4 mg PO Q6H PRN nausea and 08/04/24 tablet vomiting 3 days #12 tabs Allergies Allergy/AdvReac Type Severity Reaction Status Date / Time No Known Allergies Allergy Verified 08/04/24 13:40 PFSH PFS Disclaimer: The information contained in this section may have been updated after the patient was seen, as this information can be updated by other users. Medical History Atypical chest pain HHD (hypertensive heart disease) Left arm pain Sinus tachycardia Tobacco abuse Social History Smoking Status: Current every day smoker tobacco type: cigarettes packs per day: 1 second hand exposure: No alcohol intake: never substance use type: denies use current occupational status: other Travel in the last 8 weeks: Inside the [place] household members: spouse housing: house current occupational exposures/hazards: No caffeine: No ROS Obtained: Yes All systems reviewed & no additional complaints except as documented Physical Exam General General appearance: alert and in no apparent distress Head Head exam: atraumatic and normocephalic Eye Eye exam: Present normal appearance, PERRL and EOMI ENT ENT exam: Present normal oropharynx and mucous membranes moist Neck Neck exam: Present full ROM; Absent meningismus Respiratory Respiratory exam: Absent respiratory distress, wheezes, stridor or accessory muscle use Cardiovascular Cardiovascular exam: Present normal rhythm Abdominal Exam Abdominal exam: Present soft and tenderness (Generalized tenderness to palpation of the abdomen); Absent distention, guarding, rebound or rigidity Neurological Exam Neurological exam: Present alert, oriented X3 and CN II-XII intact; Absent motor sensory deficit Psychiatric Psychiatric exam: Present normal affect and normal mood Skin Skin exam: Present warm and dry Medical Decision Making Medical Records Medical records reviewed: Yes I reviewed the patient's medical records. Jesús Inquiry Pt receiving controlled substance: No Jesús was queried for this patient: No Vital Signs: 08/04/24 13:34 08/04/24 14:03 08/04/24 14:30 Temperature 97.6 F Temperature Source Oral Pulse Rate 80 83 Pulse Rate [Left] 89 Respiratory Rate 18 16 Blood Pressure 91/59 L 106/65 L Blood Pressure [Right Arm] 116/70 Blood Pressure Mean 69 74 Blood Pressure Mean [Right Arm] 85 Blood Pressure Source [Right Arm] Automatic Cuff Blood Pressure Position [Right Arm] Sitting 02 Sat by Pulse Oximetry 95 94 L 92 L Oxygen Delivery Method Room Air Room Air 08/04/24 15:00 08/04/24 15:30 08/04/24 16:00 Temperature Temperature Source Pulse Rate 83 78 78 Pulse Rate [Left] Respiratory Rate 18 18 Blood Pressure 95/68 L 105/70 L 121/74 Blood Pressure [Right Arm] Blood Pressure Mean 77 78 86 Blood Pressure Mean [Right Arm] Blood Pressure Source [Right Arm] Blood Pressure Position [Right Arm] 02 Sat by Pulse Oximetry 94 L 95 95 Oxygen Delivery Method Lab Data Lab Results 08/04/24 13:28: WBC 13.1 H, RBC 5.30, Hgb 17.1, Hct 53.2 H, MCV 100.4 H, MCH 32.3 H, MCHC 32.1, RDW 13.8, Plt Count 383, MPV 7.8, Neut % (Auto) 71.1, Lymph % (Auto) 17.3, Whitley % (Auto) 7.8, Eos % (Auto) 3.0, Baso % (Auto) 0.8, Neut # (Auto) 9.3 H, Lymph # (Auto) 2.3, Whitley # (Auto) 1.0, Eos # (Auto) 0.4, Baso # (Auto) 0.1, Sodium 138, Potassium 4.4, Chloride 103, Carbon Dioxide 30, Anion Gap 9.4, BUN 22 H, Creatinine 1.10, Estimated Creat Clear 101, Estimated GFR 68, Est GFR ( Amer) 82, Glucose 191 H, Lactate 1.9, Calcium 9.4, Total Bilirubin 1.6 H, AST 35, ALT 60, Alkaline Phosphatase 71, Total Protein 8.1, Albumin 4.8, Globulin 3.3 H, Albumin/Globulin Ratio 1.5, Lipase 57 08/04/24 13:35: Urine Color Negrita, Urine Appearance Sl cloudy, Urine pH 5.5, Ur Specific [place] >= 1.030, Urine Protein 2+ A, Urine Glucose (UA) Negative, Urine Ketones Trace, Urine Blood Negative, Urine Nitrate Positive, Urine Bilirubin 2+ A, Urine Urobilinogen 1.0, Ur Leukocyte Esterase Trace, Urine RBC None, Urine WBC 10-20, Amorphous Sediment 2+, Urine Bacteria 3+, Hyaline Casts 20-50 08/04/24 13:28 08/04/24 13:28 Orders (Tests/Meds): ED MEDICATIONS Generic Name Dose Route Start Last Admin Trade Name Sadia PRN Reason Stop Dose Admin Sodium Chloride 10 ml 08/04/24 14:25 08/04/24 14:26 Sodium Chloride 0.9% 10ml Syr (Rad Only) IV 09/03/24 14:24 10 ml NEEDED PRN Administration Maintain IV Site Discontinued Medications Generic Name Dose Route Start Last Admin Trade Name Sadia PRN Reason Stop Dose Admin Ceftriaxone Sodium 1 gm/ 50 mls @ 100 mls/hr 08/04/24 15:30 08/04/24 15:31 Sodium Chloride IV 08/04/24 15:59 100 mls/hr ONCE ONE Administration Sodium Chloride 1,000 mls @ 999 mls/hr 08/04/24 15:29 08/04/24 15:31 Sod Chlor 0.9% 1000ml Bag IV 08/04/24 16:29 999 mls/hr .Q1H1M ONE Administration Iopamidol 80 ml 08/04/24 14:25 08/04/24 14:26 Iopamidol-370 (76%);100ml Bottle IV 08/04/24 14:26 80 ml ONCE ONE Administration Morphine Sulfate 4 mg 08/04/24 13:36 08/04/24 13:47 Morphine 4mg/Ml Syringe IV 08/04/24 13:37 4 mg ONCE ONE Administration Ondansetron HCl 4 mg 08/04/24 13:36 08/04/24 13:47 Ondansetron 4mg/2ml Vial IV 08/04/24 13:37 4 mg ONCE ONE Administration Sodium Chloride 50 ml 08/04/24 14:25 08/04/24 14:26 0.9 % Sodium Chloride 50 Ml Vial IV 08/04/24 14:26 50 ml ONCE ONE Administration ORDERS Category Date Time Status CT angio abdomen pelvis Stat Cat Scan 08/04/24 13:35 Completed Complete Blood Count Auto Diff Stat Lab 08/04/24 13:28 Completed Comprehensive Metabolic Panel Stat Lab 08/04/24 13:28 Completed Lactic Acid Stat Lab 08/04/24 13:28 Completed Lipase Stat Lab 08/04/24 13:28 Completed Urinalysis and Microscopic Stat Lab 08/04/24 13:35 Completed Urine Culture Stat Micro 08/04/24 13:35 Received Medical Decision Narrative: 59-year-old male with past medical history significant for history of aortic aneurysm with stents, history of bladder cancer in 2015 in remission, HTN, COPD, HLD, CAD, presents today for evaluation concerning abdominal pain with associated nonbloody diarrhea over the past 3 days. He also states that during the onset of his symptoms he had an episode of emesis which has since resolved. He denies having any fevers, chills, chest pain, shortness of breath however he does note dysuria without hematuria. On assessment he was hemodynamically stable and in no acute distress. Afebrile. Chest clear to auscultation bilaterally. His abdomen was soft and nondistended however was generally tender. No lower extremity edema. Other physical exam findings unremarkable. Differential diagnoses include but not limited to AAA, gastritis, gastroenteritis, colitis, diverticulitis, pancreatitis, cholecystitis, among others. Labs today show a WBC of 13.1. CMP with no transaminitis. Urinalysis showing signs of UTI with positive nitrates, trace leukocytes, 10-20 WBCs, 3+ bacteria. I have ordered for 1 g of Rocephin to initiate treatment. I did order for CTA abdomen and pelvis given his history and his results are remarkable for a patent aortic stent graft without evidence of endoleak. He does have small bowel wall thickening likely inflammatory per results. On reassessment he remains hemodynamically stable and in no acute distress. Pain is controlled at this time. Discussed with patient ED work-up and results and current plan to discharge. Will send home with cefdinir to treat UTI. Provided with return to ED precautions and instructions concerning PCP follow- up. Patient verbalized understanding and agreement with plan. Subsequently discharged hemodynamically stable and in no acute distress. Critical Care Critical Care Time Critical Care Time: No
[2024-08-04] MEDS: CEFTRIAXONE 1 GM 1 GM in 0.9 % SODIUM CHLORIDE 50 ML IV (15:31)
[2024-08-04] MEDS: 0.9 % SODIUM CHLORIDE 1000ML 1,000 ML 999 ML IV (15:31)
--- NOTE | 2024-08-04 16:43 | INFXCTL.NOTE ---
DR GALLARDO AT BEDSIDE TO UPDATE PT
== END 2024-08-04 16:54 | disposition home or self-care (01) ==
PROVIDERS: Emergency Provider Emergency Medicine; PCP Nurse Practitioner
DX: N39.0 Urinary tract infection, site not specified (principal); B96.89 Other specified bacterial agents as the cause of diseases classified elsewhere; R30.0 Dysuria; R10.33 Periumbilical pain; K52.9 Noninfective gastroenteritis and colitis, unspecified
CPT/HCPCS: 74174; 80053; 81001; 83605; 83690; 85025; 87086; 96365; 96375; 99285; J0696; J2270; J2405; J7030; Q9967

== ENCOUNTER 2025-01-24 12:44 | Outpatient (CLI) | payer MEDICARE, MEDICAID, SELFPAY ==
--- NOTE | 2025-01-24 12:55 | CA_ITS ---
APPROVED REPORT EXAM: Comprehensive 2D, Doppler, and color-flow Echocardiogram Hop Sorter: Briana Meneses RVT Ht: 5 ft 11 in Wt: 219lbs BSA: 2.19 BP: 134/89 mmHg Indications: CAD,HTN,SMOKER,HLD 2D Dimensions LA Volume 47.90 mL LA Volume Index 21.87 mL/m2 (M/F) 16-34 M-Mode Dimensions RVDd 3.47 cm (0.9-2.6) LA Diam 3.97 cm (1.9-4.0) LVDd 5.47 cm (3.5-5.7) LVDs 3.92 cm (3.5-5.7) IVSd 0.53 cm (0.6-1.1) PWd 0.62 cm (0.6-1.1) EF (Teich) 54.20% FS 28.30% EDV (Teich) 145.60 mL TAPSE 1.41 (<1.7) ESV (Teich) 66.70 mL LV Diastology E Decel Time 163 (160-240 msec) E/A Ratio 0.7 Aortic Valve ROHAN Index 1.75 cm2/m2 AoV Peak Lio. 120.0 (50-130 cm/s) AO Peak GR. 5.70 mmHg AO Mean GR. 3.30 (<5 mmHg) AO VTI 22.8 (18-25 cm) ROHAN (VTI) 3.91 (2.5-4.5 cm2) Mitral Valve MV E Max Lio. 73.0 (40-130 cm/s) MV A Velocity 111.0 (40-130 cm/s) E/A Ratio 0.66 MV PHT 48.0 ms Pulmonary Valve PV Peak Velocity 74.0 (50-150 cm/s) Tricuspid Valve TR P. Velocity 272.00 cm/s RAP Estimate 10.00 mmHg RVSP 39.60 mmHg Left Ventricle The left ventricle is normal size. The left ventricular systolic function is normal. The left ventricular ejection fraction is within the normal range. There is increased LV wall thickness. There is normal LV segmental wall motion. The left ventricular diastolic function is normal. LVEF is 55%. Right Ventricle The right ventricle is normal size. The right ventricular systolic function is normal. Atria The left atrium size is normal. The right atrium size is normal. There is no Doppler evidence of interatrial shunt. Aortic Valve The aortic valve is mildly thickened. There is no aortic valvular stenosis. No aortic regurgitation is present. Mitral Valve The mitral valve is normal in structure. No evidence of mitral valve stenosis. Mild mitral regurgitation. Tricuspid Valve The tricuspid valve leaflets are thin and pliable. Mild tricuspid regurgitation. RVSP is 25-30 mmHg. Pulmonic Valve The pulmonary valve is normal in structure. Trace pulmonic regurgitation. Great Vessels The aortic root is normal in size. IVC is normal in size and collapses >50% with inspiration. Pericardium There is no pericardial effusion. Other Information Study Quality: Fair Conclusion Normal biventricular systolic function. Mild MR, mild TR. Electronically signed by : Regine Pastrana MD 01/31/2025 14:05:38
[2025-01-24 13:37] LABS: Basophils # 0.1 K/mm3 (0-0.2); Eosinophils # 0.2 K/mm3 (0.0-0.4); Eosinophils % 2.5 % (0.1-12.0); Hematocrit 43.7 % (42.0-52.0); Hemoglobin 14.9 g/dL (14.1-18.0); Lymphocytes # 2.4 K/mm3 (0.7-4.5); Lymphocytes % 26.5 % (10-50); Mean Corpuscular HGB Conc 34.1 g/dL (31.8-35.4); Mean Corpuscular Hemoglobin 32.1 pg (27.0-31.2); Mean Corpuscular Volume 94.2 fl (80-94); Mean Platelet Volume 9.2 fl (7.4-10.4); Monocytes # 0.9 K/mm3 (0.1-1.0); Monocytes % 9.7 % (1.7-9.3); Neutrophils # 5.5 K/mm3 (1.8-7.8); Platelet Count 303 K/mm3 (142-424); Red Blood Count 4.64 M/mm3 (4.60-6.20); White Blood Count 9.2 K/mm3 (4.8-10.8)
[2025-01-24 14:34] LABS: Albumin Level 4.6 g/dl (3.5-5.0); Chloride 107 mmol/L (98-107)
[2025-01-24 14:35] LABS: Potassium 4.2 mmoL/L (3.5-5.1); Sodium 141 mmol/L (136-145)
[2025-01-24 14:37] LABS: Alanine Aminotransferase 40 U/L (12-78); Anion Gap 10.2 mEq/L (5-15); Aspartate Amino Transferase 30 U/L (17-59); Bilirubin,Unconjugated 0.5 mg/dL (0.0-1.1); Blood Urea Nitrogen 23 mg/dl (9-20); Carbon Dioxide 28 mmol/L (22.0-30.0); Estimated Glomerular Filt Rate 86 ml/min (>60); GFR (African American) 103 ML/MIN (>60)
[2025-01-24 14:38] LABS: Alkaline Phosphatase 65 U/L (38-126); Bilirubin,Direct 0.2 mg/dl (0.0-0.4); Bilirubin,Indirect 0.5 mg/dL (0.0-0.9); Bilirubin,Total 0.7 mg/dl (0.2-1.3); Calcium 9.4 mg/dl (8.4-10.2); Chol/HDL Ratio 4.3 (1-3.5); Cholesterol 198 mg/dl (140-200); Glucose 112 mg/dl (74-100); HDL Cholesterol 46 mg/dl (40-60); Triglycerides 89 mg/dl (30-150); VLDL Cholesterol 18 mg/dL (0-40)
[2025-01-24 14:49] LABS: Direct LDL Cholesterol 127.94 mg/dL (100-129)
[2025-01-24 14:52] LABS: Free T4 (Free Thyroxine) 1.25 ng/dl (0.78-2.19)
[2025-01-24 15:06] LABS: Thyroid Stimulating Hormone 1.03 uIU/mL (0.465-4.68)
== END 2025-01-24 23:59 | disposition home or self-care (01) ==
PROVIDERS: PCP Nurse Practitioner; Visit Provider Nurse Practitioner
DX: I34.0 Nonrheumatic mitral (valve) insufficiency (principal); I36.1 Nonrheumatic tricuspid (valve) insufficiency; I10 Essential (primary) hypertension; I25.10 Atherosclerotic heart disease of native coronary artery without angina pectoris; R07.89 Other chest pain; E78.2 Mixed hyperlipidemia
CPT/HCPCS: 36415; 80048; 80061; 80076; 83735; 84439; 84443; 85025; 93306

== ENCOUNTER 2025-09-20 14:17 | Outpatient (CLI) | payer MEDICARE, MEDICAID, SELFPAY ==
--- NOTE | 2025-09-20 14:19 | XR_ITS ---
FINAL REPORT TECHNIQUE: Chest PA & Lateral CLINICAL HISTORY: dyspnea sob x 1 month and coughing 3 stents in heart in 2015 COMPARISON: None FINDINGS: 2 views of the chest were performed. The heart size is normal. The mediastinum is within normal limits. The lungs are hyperinflated. There is no acute cardiopulmonary process. There are no pleural effusions. There is no pneumothorax. The bony thorax appears intact. There are some superficial densities projecting over the left lower chest, that appear to be external to the patient, probably in a short pocket. IMPRESSION: No acute cardiopulmonary process. Reviewed, Interpreted and Dictated by Mohit Crocker MD Transcribed by Justina Osei Authenticated and [facility]
--- OUTSIDE RECORDS SUMMARY | 2025-09-20 14:27 | XMS_ITS | Clinical Summary ---
Author Organization [facility] Address [address] [place] [address] Care Team Providers Care Business Area Manager Name Role Phone Lali Domingo APRN Primary Care Provider [phone] Allergies No known active allergies Medications amLODIPine (Norvasc) 5 MG tablet Take 1 tablet (5 mg) by mouth 1 (one) time each morning. 02/22/20 21 Active aspirin 81 MG chewable tablet Chew 1 tablet (81 mg) 1 (one) time each day. 05/11/20 17 Active atorvastatin (Lipitor) 80 MG tablet Take 1 tablet (80 mg) by mouth 1 (one) time each day. 01/30/20 21 Active clopidogrel (Plavix) 75 MG tablet Take 1 tablet (75 mg) by mouth 1 (one) time each day. 05/12/20 21 Active cyclobenzaprine (Flexeril) 10 MG tablet Take 10 mg by mouth 3 (three) times a day if needed. 10/15/20 20 Active isosorbide mononitrate ER (Imdur) 120 MG 24 hr tablet Take 1 tablet (120 mg) by mouth 1 (one) time each day. 05/12/20 21 Active losartan (Cozaar) 100 MG tablet Take 1 tablet (100 mg) by mouth 1 (one) time each day. 01/30/20 21 Active nitroglycerin (Nitrostat) 0.[address] 1 tablet (0.4 mg) under the tongue if needed. 01/30/20 21 Active ranolazine (Ranexa) 1000 MG 12 hr tablet Take 1 tablet (1,000 mg) by mouth 2 (two) times a day. 01/30/20 21 Active tamsulosin (Flomax) 0.4 MG 24 hr capsule Take 1 capsule (0.4 mg) by mouth 1 (one) time each day. 05/11/20 17 Active traZODone (Desyrel) 50 MG tablet Take 1 tablet (50 mg) by mouth 1 (one) time each day. 05/22/20 21 Active cholecalciferol (Vitamin D-3) 50 MCG (2000 UT) capsuleIndications :Vitamin D deficiency Take 1 capsule (2,000 Units total) by mouth 1 (one) time each day. 30 capsule 6 05/30/20 21 Active Additional Information Patient not taking.Reported on 05/12/2024 bisoprolol (Zebeta) 10 MG tablet Take 1 tablet (10 mg) by mouth 1 (one) time each day. 03/02/20 22 Active atorvastatin (Lipitor) 40 MG tablet 08/09/20 18 Active buPROPion XL (Wellbutrin XL) 150 MG 24 hr tablet Take 1 tablet (150 mg) by mouth 1 (one) time each day. Do not crush, chew, or split. 30 tablet 11 08/27/20 23 Active cetirizine (ZyrTEC) 10 MG tabletIndications: Allergic rhinitis, unspecified seasonality, unspecified trigger Take 1 tablet (10 mg) by mouth 1 (one) time each day. 90 tablet 3 09/21/20 23 Active metFORMIN (Glucophage) 1000 MG tablet Take 1 tablet (1,000 mg) by mouth 2 (two) times a day with meals. 05/05/20 24 Active albuterol (2.5 MG/3ML) 0.083% nebulizer solutionIndication s:Asthma, unspecified asthma severity, unspecified whether complicated, unspecified whether persistent,Chronic obstructive pulmonary disease, unspecified COPD type (CMS/HCC) Take 3 mL (2.5 mg) by nebulization every 4 (four) hours if needed for wheezing or shortness of breath. 180 mL 3 05/18/20 24 Active albuterol 108 (90 Base) MCG/ACT inhalerIndications :Asthma, unspecified asthma severity, unspecified whether complicated, unspecified whether persistent,Chronic obstructive pulmonary disease, unspecified COPD type (CMS/HCC),Bronchie ctasis without acute exacerbation (CMS/HCC) Inhale 2 puffs every 6 (six) hours if needed for wheezing or shortness of breath. 54 g 3 05/18/20 24 Active sulfamethoxazole-t rimethoprim (Bactrim DS) 800-160 MG tablet Take 1 tablet by mouth every 12 (twelve) hours. 05/05/20 Active cefdinir (Omnicef) 300 MG capsule TAKE ONE CAPSULE BY MOUTH TWICE DAILY FOR 7 DAYS Active Jardiance 25 MG Take 1 tablet (25 mg) by mouth Daily. Active ondansetron ODT (Zofran-ODT) 4 MG disintegrating tablet DISSOLVE ONE TABLET ON TONGUE EVERY 6 HOURS NEEDED FOR NAUSEA AND FOR VOMITING FOR 3 DAYS Active Budeson-Glycopyrro l-Formoterol (Breztri Aerosphere) 160-9-4.8 MCG/ACT aerosolIndications :Chronic obstructive pulmonary disease, unspecified COPD type (CMS/HCC) Inhale 2 puffs 2 (two) times a day. Use with spacer. Rinse mouth after use. 10.7 g 11 03/15/20 Active Active Problems No known active problems Immunizations Immunization Administration Dates Next Due Influenza, injectable, quadrivalent, preservativ e free 08/26/2022,09/03/2015 Influenza, seasonal, injectable 09/03/2015 Pneumococcal 20-roseanne Conj Vaccine 05/12/2024 Pneumococcal Conjugate PCV 13 09/03/2015, 015 Tdap 05/03/2024,04/03/2022 Zoster, Recombinant 04/07/2024 Family History Medical History Relation Name Comments Cardiomegaly Father Conversions - Other Father Coronary artery disease Other 1 Diabetes Other 2 Other cancer Other 3 Relation Name Status Comments Father Other 1 Other 2 Other 3 Social History Tobacco Use Types Packs/Day Years Used Date Smoking Tobacco: Every Day Cigarettes 0.8 48.8 Started: 1976 Passive Smoke Exposure: Never Smokeless Tobacco: Never Tobacco Cessation:Ready to Q uit: Not Asked; Counseling Given: Not Answered Comments:07/06/2023- currently smoking 1/2 ppd 05/12/24 smokes less than 0.5 pack per day Alcohol Use Standard Drinks/Week Comments Yes 0 (1 standard drink = 0.6 oz pure alcohol) quit whiskey in 1995. beer every once in a while PHQ-2 Answer Date Recorded Patient Health Questionnaire-2 Score 0 09/27/2024 PHQ-2A Answer Date Recorded Patient Health Questionnaire-2 Score 0 08/27/2023 Sex and Gender Information Value Date Recorded Sex Assigned at Not on file Legal Sex Male 8:15 PM EDT Gender Identity Not on file Sexual Orientation Not on file Last Filed Vital Signs Vital Sign Reading Time Taken Comments Blood Pressure 84/57 09/27/2024 3:42 PM EST Pulse 80 09/27/2024 3:42 PM EST Temperature 36.9 C (98.5 F) 09/27/2024 3:42 PM EST Respiratory Rate 18 08/27/2023 8:22 AM EDT Oxygen Saturation 96% 09/27/2024 3:42 PM EST Inhaled Oxygen Concentration - - Weight 105 kg (231 lb 4.2 oz) 09/27/2024 3:42 PM EST Height 180.1 cm (5' 10.9 ) 09/27/2024 3:42 PM ES T Body Mass Index 32.35 09/27/2024 3:42 PM EST Plan of Treatment Upcoming Encounters Date Type Department Care Team (Late st Contact Info) Description 10/01/2025 2:10 PM EST Appointment [facility] [address] [place] [address] 10/01/2025 3:10 PM EST Office Visit [facility] [address], [address] [place] [address] Jessica Oakes S, DISMANTLER [address] [place] [address] Health Maintenance Due Date Last Done Comments [facility]-HIV Screening 1963 [facility]-Hepatitis C Screening 1963 [facility]Medicare Annual Wellness (AWV) 1963 [facility]-Infant/Child/Adol SDOH Screenings 1963 [facility]- SDOH Screenings 1981 [facility]-Adult SDOH Screenings 1981 CT Colonography 2008 Colonoscopy 2008 FIT-DNA 2008 FIT 2008 FOBT 2008 Sigmoidoscopy 2008 [facility]-Colorectal Cancer Screening 2008 Lung Cancer Screening Shared Decision Making 2013 [facility]-RSV Vaccine: 60+ Years or (1 - Risk 60-74 years 1-dose series) 2023 [facility]-Zoster Vaccines (2 of 2) 06/02/2024 04/07/2024 [id number] Vaccine (2 - season) 2025 02/25/2021 [facility]-Influenza Vaccine (#1) 07/23/202508/26, 09/03/2015, 09/03/2015 [facility]-Depression Screening 09/27/2025 09/27/2024, 03/2022 [facility]-Lung Cancer Screening 09/27/20252023, 08/17/2023, 06/10/2021 [facility]-DTaP,Tdap,and Td Vaccines (3 - Td or Tdap) 05/03/2034 05/03/2024, 04/03/2022 [facility]-Pneumococcal Vaccine: 50+ Years Completed 05/12/2024, 09/03/2015, 04/08/2015 [facility]-Obesity Intervention Completed 024, 05/12/2024, 08/27/2023, Additional history exists HPV Vaccines Aged Out No longer eligi ble based on patient's age to complete this topic [facility]-HIB Vaccines Aged Out No longer e ligible based on patient's age to complete this topic [facility]-Hepatitis A Vaccines Aged Out No longer eligible based on patient's age to complete this topic [facility]-IPV Vaccines Aged Out No longer e ligible based on patient's age to complete this topic [facility]-Rotavirus Vaccines Aged Out No lo nger eligible based on patient's age to complete this topic Procedures Procedure Name Priority Date/Time Associated Diagnosis Comments CT CHEST LUNG CANCER SCREENING Routine 09/27/2024 2:33 PM EST Chronic obstructive pulmonary disease, unspecified COPD type (CMS/HCC) Current smoker Encounter for screening for malignant neoplasm of lung from Last 3 Months or Most Recently Relevant to Health Maintenance Results * CT Chest Lung Cancer Screening (09/27/2024 2:33 PM EST) Anatomical Region Laterality Modality Chest Computed Tomogra phy Impressions 09/27/2024 4:19 PM EST Negative screening examination. Recommendations: LungRADS 1: Negative - CT Chest Lung Cancer Screening recommended in 12 months. Modifier: None CRITICAL RESULT: No. COMMUNICATION: Per this written report. By electronically signing this report, I, the attending physician, attest that I have personally reviewed the images/data for the above examination(s) and agree with the final edited report. Drafted by David Reddy MD on 09/27/2024 3:26 PM Final report signed by Buck Crook MD on 09/27/2024 4:19 PM Narrative 09/27/2024 4:19 PM EST CLINICAL INDICATION: Lung cancer screening; personal history of tobacco use. TECHNIQUE: Multiple CT helical images were obtained from thoracic inlet through upper abdomen without contrast. A low radiation dose protocol was utilized. Total DLP (Dose-Length Product): 30.70 mGy.cm. Please note: The reported value represents the total of one or more individual components during the CT acquisition on this date and at this time, and as such, the same value may appear in more than one CT report depending on the interpreting/reporting physicians. COMPARISON: CT lung cancer screening 06/10/2021 FINDINGS: Mediastinum and Pleura: No adenopathy. Coronary Calcium: Yes, severe. Lungs: No suspicious pulmonary nodules. Upper lobe predominant severe centrilobular emphysema. Upper Abdomen: Endovascular stent within the abdominal aorta. Anterior abdominal wall mesh. No suspicious lesion in the partially visualized upper abdomen. Please note that the low dose technique utilized for this examination is optimized for pulmonary nodule evaluation and has limited sensitivity for detection of abdominal abnormalities. Musculoskeletal: Degenerative changes of the spine. Procedure Note Buck Crook MD - 09/27/2024 CLINICAL INDICATION: Lung cancer screening; personal history of tobacco use. TECHNIQUE: Multiple CT helical images were obtained from thoracic inlet through upperabdomen without contrast. A low radiation dose protocol was utilized. Total DLP (Dose-Length Product): 30.70 mGy.cm. Please note: The reportedvalue represents the total of one or more individual components during theCT acquisition on this date and at this time, and as such, the same valuemay appear in more than one CT report depending on theinterpreting/reporting physicians. COMPARISON: CT lung cancer screening 06/10/2021 FINDINGS: Mediastinum and Pleura: No adenopathy. Coronary Calcium: Yes, severe. Lungs: No suspicious pulmonary nodules. Upper lobe predominant severecentrilobular emphysema. Upper Abdomen: Endovascular stent within the abdominal aorta. Anteriorabdominal wall mesh. No suspicious lesion in the partially visualizedupper abdomen. Please note that the low dose technique utilized for thisexamination is optimized for pulmonary nodule evaluation and has limitedsensitivity for detection of abdominal abnormalities. Musculoskeletal: Degenerative changes of the spine. IMPRESSION: Negative screening examination. Recommendations: LungRADS 1: Negative - CT Chest Lung Cancer Screening recommended in 12months. Modifier: None CRITICAL RESULT: No. COMMUNICATION: Per this written report. By electronically signing this report, I, the attending physician, attestthat I have personally reviewed the images/data for the aboveexamination(s) and agree with the final edited report. Drafted by David Reddy MD on 09/27/2024 3:26 PM Final report signed by Buck Crook MD on 09/27/2024 4:19 PM Paula Velázquez DISMANTLER IMG CT PROCEDURES Final R esult from Last 3 Months or Most Recently Relevant to Health Maintenance Insurance MEDICAID-[place] [employer] MEDICARE Care Teams Business Area Manager Relationship Specialty Start Date End Date Lali Domingo APRN [address] [place] [address] PCP - General 10/06/21
--- OUTSIDE RECORDS SUMMARY | 2025-09-20 14:27 | XMS_ITS | Encounter Summary ---
Author Organization [facility] Address [address] [place] [address] Care Team Providers Care Autism Tutor Name Role Phone Lali Domingo APRN Primary Care Provider Encounter Details Date Type Department Care Team (Late st Contact Info) Description 08/04/2024 Orders Only External Location [address] [place] [address] Winston Bryant, DO [address] [place] [address] Social History Tobacco Use Types Packs/Day Years Used Date Smoking Tobacco: Every Day Cigarettes 0.3 48.8 Started: 1978 Passive Smoke Exposure: Never Smokeless Tobacco: Never Comments:07/06/2023- currentl y smoking 1/2 ppd 05/12/24 smokes less than 0.5 pack per day Alcohol Use Standard Drinks/Week Comments Yes 0 (1 standard drink = 0.6 oz pure alcohol) quit whiskey in 1995. beer every once in a while PHQ-2 Answer Date Recorded Patient Health Questionnaire-2 Score 0 05/12/2024 PHQ-2A Answer Date Recorded Patient Health Questionnaire-2 Score 0 08/27/2023 Sex and Gender Information Value Date Recorded Sex Assigned at Not on file Legal Sex Male 8:15 PM EDT Gender Identity Not on file Sexual Orientation Not on file documented as of this encounter Plan of Treatment Upcoming Encounters Date Type Department Care Team (Late st Contact Info) Description 10/01/2025 2:10 PM EST Appointment [facility] [address] [place] [address] 10/01/2025 3:10 PM EST Office Visit [facility] [address] [place] [address] Jessica Oakes S, GAS ENGINE REPAIRER [address] [place] [address] documented as of this encounter Procedures Procedure Name Priority Date/Time Associated Diagnosis Comments CT OUTSIDE IMAGES 08/04/2024 2:23 PM EDT documented in this encounter Results * CT OUTSIDE IMAGES (08/04/2024 2:23 PM EDT) Anatomical Region Laterality Modality Computed Tomogra phy 08/04/2024 2:23 PM EDT Winston Bryant DO [facility] [place] PROCEDURES Final Result documented in this encounter Visit Diagnoses Not on filedocumented in this encounter Additional Health Concerns Assessment Noted Time A fall risk assessment has been complete d for the patient 05/12/2024 10:39 AM EDT A Body Mass Index follow-up plan has been documented for the patient 05/12/2024 11:35 AM EDT documented as of this encounter Care Teams Autism Tutor Relationship Specialty Start Date End Date Lali Domingo APRN [address] [place] [address] PCP - General 10/06/21 documented as of this encounter
--- OUTSIDE RECORDS SUMMARY | 2025-09-20 14:28 | XMS_ITS | Encounter Summary ---
Author Organization [facility] Address [address] [place] [address] Care Team Providers Care Coper Hand Name Role Phone Lali Domingo APRN Primary Care Provider Reason for Visit * Reason Comments Med Refill Encounter Details Date Type Department Care Team (Late st Contact Info) Description 05/21/2022 Refill [facility] Medicine [facility]ties [address] [place] [address] Brock Abel MD [address] [place] [address] Asthma, unspecified asthma severity, unspecified whether complicated, unspecified whether persistent; Chronic obstructive pulmonary disease, unspecified COPD type (CMS/HCC); Bronchiectasis without acute exacerbation (CMS/[facility]) Social History Tobacco Use Types Packs/Day Years Used Date Smoking Tobacco: Every Day Cigarettes 1 44 Smokeless Tobacco: Never Comments:Wishing to stop smo afshin Alcohol Use Standard Drinks/Week Comments No 0 (1 standard drink = 0.6 oz pur e alcohol) PHQ-2 Answer Date Recorded Patient Health Questionnaire-2 Score 0 05/29/2021 Sex and Gender Information Value Date Recorded Sex Assigned at Not on file Legal Sex Male 8:15 PM EDT Gender Identity Not on file Sexual Orientation Not on file documented as of this encounter Plan of Treatment Upcoming Encounters Date Type Department Care Team (Late st Contact Info) Description 10/01/2025 2:10 PM EST Appointment [facility] [address] [place] [address] 10/01/2025 3:10 PM EST Office Visit [facility] [address] [place] [address] Jessica Oakes S, MARKETING SUPPORT ASSISTANT [address] [place] [address] documented as of this encounter Visit Diagnoses Diagnosis Asthma, unspecified asthma severity, unspecified whether complicated, unspecified whether persistent Chronic obstructive pulmonary disease, unspecified COPD type ([facility]) Bronchiectasis without acute exacerbation ([facility]) Bronchiectasis without acute exacerbation documented in this encounter Additional Health Concerns Assessment Noted Time A fall risk assessment has been complete d for the patient 05/29/2021 9:53 AM EDT documented as of this encounter Care Teams Coper Hand Relationship Specialty Start Date End Date Lali Domingo APRN [address] [place], [place] [id number] PCP - General 10/06/21 documented as of this encounter
[2025-09-20 14:44] LABS: Hematocrit 41.3 % (42.0-52.0); Hemoglobin 14.0 g/dL (14.1-18.0); Immature Granulocytes % 0.4 %; Mean Corpuscular HGB Conc 33.9 g/dL (31.8-35.4); Mean Corpuscular Hemoglobin 32.6 pg (27.0-31.2); Mean Corpuscular Volume 96.3 fl (80-94); Nucleated Red Blood Cells % 0 %; Platelet Count 308 K/mm3 (142-424); Red Blood Count 4.29 M/mm3 (4.60-6.20); Red Cell Distribution Width-SD 43.4 fL; White Blood Count 9.3 K/mm3 (4.8-10.8)
[2025-09-20 14:53] LABS: Alanine Aminotransferase 25 U/L (12-78); Albumin Level 3.5 g/dl (3.5-5.0); Alkaline Phosphatase 86 U/L (38-126); Anion Gap 10.7 mEq/L (5-15); Aspartate Amino Transferase 22 U/L (17-59); Bilirubin,Direct 0.1 mg/dl (0.0-0.4); Bilirubin,Indirect 0.3 mg/dL (0.0-0.9); Bilirubin,Total 0.4 mg/dl (0.2-1.3); Bilirubin,Unconjugated 0.3 mg/dL (0.0-1.1); Blood Urea Nitrogen 22 mg/dl (9-20); Calcium 9.3 mg/dl (8.4-10.2); Carbon Dioxide 29 mmol/L (22.0-30.0); Chloride 104 mmol/L (98-107); Cholesterol 128 mg/dl (140-200); Creatinine,Serum 1.00 mg/dl (0.66-1.25); Estimated Glomerular Filt Rate 76 ml/min (>60); GFR (African American) 92 ML/MIN (>60); Glucose 109 mg/dl (74-100); HDL Cholesterol 43 mg/dl (40-60); Magnesium 2.1 mg/dl (1.6-2.3); Potassium 3.7 mmoL/L (3.5-5.1); Sodium 140 mmol/L (136-145); Total Protein,Serum 7.4 g/dl (6.3-8.2); Triglycerides 97 mg/dl (30-150)
[2025-09-20 15:05] LABS: Troponin I < 0.01 ng/ml (0.00-0.034)
[2025-09-20 15:23] LABS: Thyroid Stimulating Hormone 1.04 uIU/mL (0.465-4.68)
[2025-09-20 15:46] LABS: Free T4 (Free Thyroxine) 1.48 ng/dl (0.78-2.19)
== END 2025-09-20 23:59 | disposition home or self-care (01) ==
LOC: LAB 14:18
PROVIDERS: PCP Nurse Practitioner; Visit Provider Nurse Practitioner Family
DX: I25.10 Atherosclerotic heart disease of native coronary artery without angina pectoris (principal); E78.5 Hyperlipidemia, unspecified; I11.9 Hypertensive heart disease without heart failure; Z72.0 Tobacco use
CPT/HCPCS: 36415; 71046; 80048; 80061; 80076; 83735; 84439; 84443; 84484; 85025

== ENCOUNTER 2025-10-10 07:59 | Outpatient (CLI) | payer MEDICARE, MEDICAID, SELFPAY ==
--- NOTE | 2025-10-10 | CA_ITS ---
APPROVED REPORT Exam: Pharmacologic Technologist: Deloris Davis Stress Nurse: Lexie ARZOLA, RN Ht: 5 ft 11 in Wt: 199 lbs BSA: 2.10 m2 HR: 79 bpm BP: 164/97 mmHg Indications: Angina, Coronary Artery Disease Stress Test Details Test: Lexiscan HR Resting HR: 79 bpm Max Heart Rate (APMHR): 158 bpm Max HR Achieved: 117 bpm Target HR (85% APMHR): 134 bpm % of APMHR: 74 Recovery HR: 84 bpm BP Resting BP: 164.0/97.0 mmHg Max BP: 170.0/96.0 mmHg Recovery BP: 170.0/89.0 mmHg ECG Resting ECG: Sinus rhythm Stress ECG Conclusion Lungs clear to auscultation prior to test start. Symptoms: None Arrhythmias/Ectopy: PVC/PAC ST-T Changes: Less than 0.[address] segment changes. Conclusion: Non-diagnostic ECG/Lexiscan Electronically signed by : Regine Pastrana MD 10/10/2025 21:30:47
--- NOTE | 2025-10-10 08:00 | NM_ITS ---
APPROVED REPORT Exam: Nuclear Stress Test Indication: Chest pain, SOB, HTN, DM, High cholesterol, Tobacco use, Family history, CAD Patient Location: Outpatient Stress Tech: Deloris Davis MS Tech:Angie Mayorga, ARRT, RT (R)(N) Ht: 5 ft 11 in Wt: 185 lbs HR: 77 bpm BP: 164/97 mmHg BSA: 2.04 m2 TID: 1.19 BMI: 25.7 History: Chest pain, SOB, HTN, DM, High cholesterol, Tobacco use, Family history, CAD Procedure: Patient received 0.4 mg of intravenous Lexiscan, resting heart rate 77 bpm, resting blood pressure 164/97 mmHg, with Lexiscan maximum heart rate achieved was 117 bpm which is % of the maximum predicted heart rate and blood pressure was 170/96 mmHg. With Lexiscan, patient denied any complaint of chest pain. Cardiac Stress and Resting SPECT Images: Cardiac Stress and Resting SPECT images were obtained using technetium 99m Myoview 32.2 mCi stress and 10.68 mCi at rest. Resting and stress imaging in supine and prone positions demonstrate a large sized, moderate, predominantly fixed perfusion defect in the inferior and inferoseptal LV sofia. There is a region of reversibility towards the inferoapical LV wall. Gated imaging demonstrates mild reduction in global LV systolic function. LVEF is calculated at 49%. Conclusion: Large sized, moderate, predominantly fixed perfusion defect in the inferior and inferoseptal LV sofia. There is a region of reversibility towards the inferoapical LV wall. Gated imaging demonstrates mild reduction in global LV systolic function. LVEF is calculated at 49%. Electronically signed by : Regine Pastrana MD 10/10/2025 21:28:09
--- OUTSIDE RECORDS SUMMARY | 2025-10-10 08:23 | XMS_ITS | Data Portability ---
Author Organization [facility] [employer] [facility] Address [address] [place] [address] Care Team Providers Care Promotions Executive Producer Name Role Phone NICOLAS TAVARES Automotive Generator Repairer GAVIN GONZALEZ Department Traffic Freight Router WENDY BOYCE Neurosurgeon Assessment Encounter Date Assessment Date Assessment LastModified by Organization Details LastModified Time 05/03/2024 05/03/2024 Medication as prescribed. Patient cannot recall last tdap, updated today with his permission. Edges of erythema were marked with a permanent marker and patient was instructed to follow up if worsening with antibiotic therapy. Follow up if no improvement or worsening. [email or web address] Not available 05/03/2024 16:31:32 09/27/2025 09/27/2025 Patient presented for medication refill. Patient tolerating medication well at current dose without adverse effects. Refilled as below. Discussed plan with patient, who expressed understanding. Follow up as noted below. [email or web address] Not available 09/27/2025 18:45:51 Plan of Treatment Reminders Order Date Submit Date Provider Last Modified By Organization Details Last Modified Time Details Appointments None recorded. Lab HbA1c (hemoglobin A1c), blood [address], [address], 17:18:15 microalbumi n/creatinin e, mass ratio, urine [address], [address], 5 17:18:15 CBC w/ auto diff 2024 025 [facility]), [address] [place], [address], 5 10:08:30 CMP, serum or plasma 2024 025 [facility]), [address] [place], [address], 5 10:08:31 TSH + free T4, serum 2024 025 [facility]), [address] [place], [address], 5 10:08:30 cobalamin and folate panel, serum 2024 025 [facility]), [address] [place], [address], 5 10:08:33 vitamin D, 25-hydroxy, total, serum 2024 025 [facility]), [address] [place], [address], 5 10:08:36 PSA, total, serum or plasma 2024 025 [facility]), [address] [place], [address], 5 10:08:35 Hepatitis C IgG Ab, qual, serum 2024 025 [facility]), [address] [place] [address], [address], 5 10:08:34 lipid panel, serum 2024 025 [facility]), [address] [place], [address], 5 10:08:32 HbA1c (hemoglobin A1c), blood 2024 025 [facility] [address] [place], [address], 5 10:08:34 HbA1c (hemoglobin A1c), blood [address], [address] [place] [address], [address], 5 11:47:50 lipid panel, serum 2023 024 [facility] ([place]), [address] [place], [address], 4 08:18:36 CMP, serum or plasma 2023 024 [facility] ([place]), [address] [place], [address], 4 14:07:06 CBC w/ auto diff 2023 024 [facility] ([place]), [address] [place], [address], 4 14:07:07 TSH + free T4, serum 2023 024 [facility] ([place]), [address] [place], [address], 4 08:18:35 vitamin D, 25-hydroxy, total, serum 2023 024 [facility] ([place]), [address] [place], [address], 4 08:18:37 PSA, total, serum or plasma 2023 024 [facility] [address] [place], [address], 4 08:18:37 HbA1c (hemoglobin A1c), blood [address], [address] [place] [address], [address], 4 13:05:22 HbA1c (hemoglobin A1c), blood [address], [address], 4 18:38:51 microalbumi n/creatinin e, mass ratio, urine [address], [address] [place] [address], [address], 4 18:38:51 Referral vascular surgeon referral - DARIAN 2023 024 [email or web address] Lana Linton MD, [address], [place] [address], [place], [address], 4 10:51:30 Procedures diabetic foot screen (PROC) 2024 025 [email or web address] 1 Not available 5 09:45:36 diabetic foot screen (PROC) 2023 024 [email or web address] 1 Not available 4 13:31:37 Surgeries None recorded. Imaging XR, lumbar spine 2024 025 [facility], [address] [place] [address], [address], 5 15:07:50 Medication Orders cetirizine 10 mg tablet 2024 025 [facility], [address] [place] [address], [address], 5 12:03:19 hydrocodone 5 mg-acetamin ophen 325 mg tablet 2024 025 [facility], [address] [place] [address], [address], 05:01:47 ketorolac 60 mg/2 mL intramuscul ar solution [address], [address] [place] [address], [address], 18:46:18 Depo-Medrol 80 mg/mL suspension for injection [address], [address] [place] [address], [address], 18:46:18 albuterol sulfate HFA 90 mcg/actuati on aerosol inhaler 2024 025 [facility], [address] [place] [address], [address], 10:42:48 Trelegy Ellipta 100 mcg-62.5 mcg-25 mcg powder for inhalation 2024 025 [facility], [address] [place] [address], [address], 10:42:48 trazodone 50 mg tablet 2024 025 [facility], [address] [place] [address], [address], 5 10:57:48 ergocalcife rol (vitamin D2) 1,250 mcg (50,000 unit) capsule 2024 025 [email or web address] 1 [facility], [address] [place] [address], [address], 5 09:45:36 Jardiance 25 mg tablet 2024 025 [facility], [address] [place] [address], [address], 10:42:48 metformin 1,000 mg tablet 2024 025 [facility], [address] [place] [address], [address], 5 10:42:49 tamsulosin 0.4 mg capsule 2024 025 [facility], [address] [place] [address], [address], 10:42:49 cetirizine 10 mg tablet 2024 025 [facility], [address] [place] [address], [address], 5 15:23:16 albuterol sulfate HFA 90 mcg/actuati on aerosol inhaler 2024 025 [facility], [address] [place] [address], [address], 5 14:28:30 Trelegy Ellipta 100 mcg-62.5 mcg-25 mcg powder for inhalation 2024 025 [facility], [address] [place] [address], [address], 5 14:28:32 tamsulosin 0.4 mg capsule 2024 025 [facility], [address] [place] [address], [address], 5 14:28:31 trazodone 50 mg tablet 2024 025 [facility], [address] [place] [address], [address], 5 14:28:29 Jardiance 25 mg tablet 2024 025 [facility], [address] [place], [address], 5 14:28:30 metformin 1,000 mg tablet 2024 025 [facility], [address] [place], [address], 5 14:28:28 cetirizine 10 mg tablet 2023 024 [facility], [address] [place], [address], 4 11:37:48 albuterol sulfate HFA 90 mcg/actuati on aerosol inhaler 2023 024 [facility], [address] [place], [address], 4 11:37:44 Trelegy Ellipta 100 mcg-62.5 mcg-25 mcg powder for inhalation [address] [facility], [address] [place], [address], 4 10:57:14 trazodone 50 mg tablet 2023 024 [facility]AL[facility], [address] [place], [address], 4 10:57:12 metformin 1,000 mg tablet 2023 024 [facility], [address] [place], [address], 4 10:57:14 Jardiance 25 mg tablet 2023 024 [facility], [address] [place], [address], 4 10:57:11 tamsulosin 0.4 mg capsule 2023 024 [facility] [employer] [facility] [employer] [facility], [address] [place], [address], 10:57:13 metformin 1,000 mg tablet 2023 024 [facility], [address] [place], [address], 16:47:49 trazodone 50 mg tablet 2023 024 [facility]INA [employer] [facility], [address] [place], [address], 16:47:51 tamsulosin 0.4 mg capsule 2023 024 GINA [employer] [facility], [facility] [place], [address], 4 16:47:50 Bactrim DS 800 mg-160 mg tablet 2023 024 [email or web address] [facility] [facility], [facility] [place], [address], 10:39:56 Patient TargetsNo targets recorded. Patient Instructions Encounter Date Encounter Id Patient Instructions Last Modified By Organization Details Last Modified Time 05/05/2024 [id number] diabetes foot health: care instructions [email or web address] Not available 05/05/2024 18:38:51 06/05/2025 [id number] learning about healthy weight [email or web address] Not available 06/05/2025 11:47:50 09/27/2025 [id number] diabetes foot health: care instructions Not available 09/27/2025 17:18:15 Reason for Referral Vascular Surgeon Referral fo r Abdominal aortic aneurysm without rupture DARIAN Referring Physician: Lali Domingo, Family Medicine, Encounter Date: 08/04/2024 Results Created Date Observation Date Name Description Value Unit Range Abnormal Flag Note LastModifiedBy Organization Detail LastModifiedTime 05/05/20 24 05/05/2024 HbA1c (hemo globi n A1c), blood HbA1c 8.0 Not Available [address], [address], 05/05/2024 13:30:29 05/05/20 24 05/05/2024 micro album in/cr eatin ine, mass ratio , urine Microalbumin 80 Not Available [address], [address], 05/05/2024 13:30:48 05/05/20 24 05/05/2024 micro album in/cr eatin ine, mass ratio , urine Creatinine 300 Not Available [address], [address], 05/05/2024 13:30:48 05/05/20 24 05/05/2024 micro album in/cr eatin ine, mass ratio , urine Ratio 30-300 Not Available [address], [address], 05/05/2024 13:30:48 08/04/20 24 08/05/2024 TSH+F REE T4 TSH 2.670 uIU/m L 0.450- 4.500 normal Not Available [facility] ([facility]) [address] [place], [address], 08/05/2024 08:18:35 08/04/20 24 08/05/2024 TSH+F REE T4 T4,free(dire ct) 1.44 NG/dL 0.82-1 .77 normal Not Available [facility] ([facility]) [address] [facility], [place], [address], 08/05/2024 08:18:35 08/04/20 24 08/05/2024 CBC WITH DIFFE RENTI AL/PL ATELE T WBC 10.9 x10e3 /uL 3.4-10 .8 above high normal Not Available [facility] ([facility]) [address] [facility], [place], [address], 08/05/2024 08:18:35 08/04/20 24 08/05/2024 CBC WITH DIFFE RENTI AL/PL ATELE T RBC 5.14 x10e6 /uL 4.14-5 .80 normal Not Available [facility] ([facility]) [address] [place], [address], 08/05/2024 08:18:35 08/04/20 24 08/05/2024 CBC WITH DIFFE RENTI AL/PL ATELE T hemoglobin 16.6 g/dL 13.0-1 7.7 normal Not Available [facility] ([facility]) [address] [place], [address], 08/05/2024 08:18:35 08/04/20 24 08/05/2024 CBC WITH DIFFE RENTI AL/PL ATELE T hematocrit 48.9 % 37.5-5 1.0 normal Not Available [facility] ([facility]) [address] [place], [address], 08/05/2024 08:18:35 08/04/20 24 08/05/2024 CBC WITH DIFFE RENTI AL/PL ATELE T MCV 95 fL 79-97 normal Not Available [facility] ([facility]) [address] [place], [address], 08/05/2024 08:18:35 08/04/20 24 08/05/2024 CBC WITH DIFFE RENTI AL/PL ATELE T MCH 32.3 pg 26.6-3 3.0 normal Not Available [facility] ([facility]) [address] [place], [address], 08/05/2024 08:18:35 08/04/20 24 08/05/2024 CBC WITH DIFFE RENTI AL/PL ATELE T MCHC 33.9 g/dL 31.5-3 5.7 normal Not Available [facility] ([facility]) [address] [facility], [place], [address], 08/05/2024 08:18:35 08/04/20 24 08/05/2024 CBC WITH DIFFE RENTI AL/PL ATELE T RDW 12.2 % 11.6-1 5.4 Not Available [facility] ([facility]) [address] [facility], [place], [address], 08/05/2024 08:18:35 08/04/20 24 08/05/2024 CBC WITH DIFFE RENTI AL/PL ATELE T platelets 343 x10e3 /uL 150-45 0 normal Not Available [facility] ([facility]) [address] [facility], [place], [address], 08/05/2024 08:18:35 08/04/20 24 08/05/2024 CBC WITH DIFFE RENTI AL/PL ATELE T neutrophils 58 % not estab. normal Not Available [facility] ([facility]) [address] [facility], [place], [address], 08/05/2024 08:18:35 08/04/20 24 08/05/2024 CBC WITH DIFFE RENTI AL/PL ATELE T lymphs 25 % not estab. normal Not Available [facility] ([facility]) [address] [facility], [place], [address], 08/05/2024 08:18:35 08/04/20 24 08/05/2024 CBC WITH DIFFE RENTI AL/PL ATELE T monocytes 12 % not estab. normal Not Available [facility] ([facility]) [address] [facility], [place], [address], 08/05/2024 08:18:35 08/04/20 24 08/05/2024 CBC WITH DIFFE RENTI AL/PL ATELE T eos 4 % not estab. normal Not Available [facility] ([facility]) [address] [facility], [place], [address], 08/05/2024 08:18:35 08/04/20 24 08/05/2024 CBC WITH DIFFE RENTI AL/PL ATELE T basos 1 % not estab. normal Not Available [facility] ([facility]) [address] 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, [place], [address], 08/05/2024 08:18:35 08/04/20 24 08/05/2024 CBC WITH DIFFE RENTI AL/PL ATELE T neutrophils (absolute) 6.4 x10e3 /uL 1.4-7. 0 normal Not Available [facility] ([facility]) [address] [place], [address], 08/05/2024 08:18:35 08/04/20 24 08/05/2024 CBC WITH DIFFE RENTI AL/PL ATELE T lymphs (absolute) 2.7 x10e3 /uL 0.7-3. 1 normal Not Available [facility] ([facility]) [address] [place], [address], 08/05/2024 08:18:35 08/04/20 24 08/05/2024 CBC WITH DIFFE RENTI AL/PL ATELE T monocytes(ab solute) 1.3 x10e3 /uL 0.1-0. 9 above high normal Not Available [facility] ([facility]) [address] [facility], [place], [address], 08/05/2024 08:18:35 08/04/20 24 08/05/2024 CBC WITH DIFFE RENTI AL/PL ATELE T eos (absolute) 0.4 x10e3 /uL 0.0-0. 4 normal Not Available [facility] ([facility]) [address] [facility], [place], [address], 08/05/2024 08:18:35 08/04/20 24 08/05/2024 CBC WITH DIFFE RENTI AL/PL ATELE T baso (absolute) 0.1 x10e3 /uL 0.0-0. 2 normal Not Available [facility] ([facility]) [address] [facility], [place], [address], 08/05/2024 08:18:35 08/04/20 24 08/05/2024 CBC WITH DIFFE RENTI AL/PL ATELE T immature granulocytes 0 % not estab. Not Available [facility] ([facility]) [address] [facility], [place], [address], 08/05/2024 08:18:35 08/04/20 24 08/05/2024 CBC WITH DIFFE RENTI AL/PL ATELE T immature grans (abs) 0.0 x10e3 /uL 0.0-0. 1 Not Available [facility] ([facility]) [address] 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, [place], [address], 08/05/2024 08:18:35 08/04/20 24 08/05/2024 COMP. METAB OLIC PANEL (14) glucose 154 mg/dL 70-99 above high normal Not Available [facility] ([facility]) [address] [place], [address], 08/05/2024 08:18:36 08/04/20 24 08/05/2024 COMP. METAB OLIC PANEL (14) BUN 21 mg/dL 8-27 normal Not Available [facility] ([facility]) [address] [place], [address], 08/05/2024 08:18:36 08/04/20 24 08/05/2024 COMP. METAB OLIC PANEL (14) creatinine 0.94 mg/dL 0.76-1 .27 normal Not Available [facility] ([facility]) [address] [facility], [place], [address], 08/05/2024 08:18:36 08/04/20 24 08/05/2024 COMP. METAB OLIC PANEL (14) eGFR 92 mL/mi n/1.7 3 >59 normal Not Available [facility] ([facility]) [address] [place], [address], 08/05/2024 08:18:36 08/04/20 24 08/05/2024 COMP. METAB OLIC PANEL (14) BUN/creatini ne ratio 22 10-24 normal Not Available [facility] ([facility]) [address] [place], [address], 08/05/2024 08:18:36 08/04/20 24 08/05/2024 COMP. METAB OLIC PANEL (14) sodium 137 mmol/ L 134-14 4 normal Not Available [facility] ([facility]) [address] [place], [address], 08/05/2024 08:18:36 08/04/20 24 08/05/2024 COMP. METAB OLIC PANEL (14) potassium 4.1 mmol/ L 3.5-5. 2 normal Not Available [facility] ([facility]) [address] [place], [address], 08/05/2024 08:18:36 08/04/20 24 08/05/2024 COMP. METAB OLIC PANEL (14) chloride 100 mmol/ L 96-106 normal Not Available [facility] ([facility]) [address] [place], [address], 08/05/2024 08:18:36 08/04/20 24 08/05/2024 COMP. METAB OLIC PANEL (14) carbon dioxide, total 18 mmol/ L 20-29 below low normal Not Available [facility] ([facility]) [address] [place], [address], 08/05/2024 08:18:36 08/04/20 24 08/05/2024 COMP. METAB OLIC PANEL (14) calcium 9.5 mg/dL 8.6-10 .2 normal Not Available [facility] ([facility]) [address] [place], [address], 08/05/2024 08:18:36 08/04/20 24 08/05/2024 COMP. METAB OLIC PANEL (14) protein, total 7.0 g/dL 6.0-8. 5 normal Not Available [facility] ([facility]) [address] [place], [address], 08/05/2024 08:18:36 08/04/20 24 08/05/2024 COMP. METAB OLIC PANEL (14) albumin 4.4 g/dL 3.9-4. 9 normal Not Available [facility] ([facility]) [address] [place] [place], [address], 08/05/2024 08:18:36 08/04/20 24 08/05/2024 COMP. METAB OLIC PANEL (14) globulin, total 2.6 g/dL 1.5-4. 5 Not Available [facility] ([facility]) [address] [place], [address], 08/05/2024 08:18:36 08/04/20 24 08/05/2024 COMP. METAB OLIC PANEL (14) bilirubin, total 1.0 mg/dL 0.0-1. 2 normal Not Available [facility] ([facility]) [address] [place], [address], 08/05/2024 08:18:36 08/04/20 24 08/05/2024 COMP. METAB OLIC PANEL (14) alkaline phosphatase 79 IU/L 44-121 normal Not Available [facility] ([facility]) [address] [place], [address], 08/05/2024 08:18:36 08/04/20 24 08/05/2024 COMP. METAB OLIC PANEL (14) AST (SGOT) 18 IU/L 0-40 normal Not Available [facility] ([facility]) [address] [place], [address], 08/05/2024 08:18:36 08/04/20 24 08/05/2024 COMP. METAB OLIC PANEL (14) ALT (SGPT) 41 IU/L 0-44 normal Not Available [facility] ([facility]) [address] [place], [address], 08/05/2024 08:18:36 08/04/20 24 08/05/2024 LIPID PANEL cholesterol, total 172 mg/dL 100-19 9 normal Not Available [facility] ([facility]) [address] [place], [address], 08/05/2024 08:18:36 08/04/20 24 08/05/2024 LIPID PANEL triglyceride s 163 mg/dL 0-149 above high normal Not Available [facility] ([facility]) [address] [place], [address], 08/05/2024 08:18:36 08/04/20 24 08/05/2024 LIPID PANEL HDL cholesterol 32 mg/dL >39 below low normal Not Available [facility] ([facility]) [address] [facility], [place], [address], 08/05/2024 08:18:36 08/04/20 24 08/05/2024 LIPID PANEL VLDL cholesterol saul 29 mg/dL 5-40 Not Available [facility] ([facility]) [address] [facility], [place], [address], 08/05/2024 08:18:36 08/04/20 24 08/05/2024 LIPID PANEL LDL chol calc ([facility]) 111 mg/dL 0-99 above high normal Not Available [facility] ([facility]) [address] 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, [place], [address], 08/05/2024 08:18:36 08/04/2008/05/2024 PROST ATE-S PECIF IC AG prostate specific Ag 0.4 NG/mL 0.0-4. 0 normal Josh ECLIA metho dolog y. Accor ding to the Ameri can Urolo gical Assoc iatio n, Serum PSA shoul d decre ase and remai n at undet ectab le level s after radic al prost atect nelly. The AUA defin es bioch emica l recur rence as an initi al PSA value 0.2 ng/mL or great er follo wed by a subse quent confi rmato ry PSA value 0.2 ng/mL or great er. Value s obtai kacey with diffe rent assay metho ds or kits canno t be used inter kenney eably . Resul ts canno t be inter prete d as absol [facility]. george evide nce of the prese nce or absen ce of marlys banda disea se. Not Available [facility] ([facility]) [address] [facility], [place], [address], 08/05/2024 08:18:37 08/04/20 24 08/05/2024 VITAM IN D, 25-HY DROXY vitamin D, 25-hydroxy 22.2 NG/mL 30.0-1 00.0 below low normal Vitam in D defic iency has been defin ed by the Insti tute of Medic ine and an Endoc rine Socie ty pract ice guide line as a level of serum 25-OH vitam in D less than 20 ng/mL (1,2) . The Endoc rine Socie ty went on to furth er defin e vitam in D insuf ficie ncy as a level betwe en 21 and 29 ng/mL (2). 1. IOM (Inst itute of Medic ine). 2010. Dieta ry refer ence intak es for calci um and D. Timo mosher [place]: The [facility] . 2. Pennie maciel MF, Alessandro mireles [place], Savita off-F errar i MILLER, et al. Evalu ation , treat ment, and preve ntion of vitam in D defic iency : an Endoc rine Socie ty clini saul pract ice guide line. JCEM. 2010; 96(7) :1911 -30. Not Available [facility] ([facility]) [address] [facility], [place], [address], 08/05/2024 08:18:37 08/04/2008/04/2024 HbA1c (hemo globi n A1c), blood HbA1c 8.2 Not Available [address], [place], [address], 08/04/2024 10:23:22 06/05/2006/06/2025 TSH+F REE T4 TSH 2.340 uIU/m L 0.450- 4.500 normal Not Available [facility] ([facility]) [address] [facility], [place], [address], 06/06/2025 10:08:29 06/05/2006/06/2025 TSH+F REE T4 T4,free(dire ct) 1.53 NG/dL 0.82-1 .77 normal Not Available [facility] ([facility]) [address] [place], [address], 06/06/2025 10:08:29 06/05/2006/06/2025 CBC WITH DIFFE RENTI AL/PL ATELE T WBC 10.9 x10e3 /uL 3.4-10 .8 above high normal Not Available [facility] ([facility]) [address] [place], [address], 06/06/2025 10:08:30 06/05/2006/06/2025 CBC WITH DIFFE RENTI AL/PL ATELE T RBC 4.79 x10e6 /uL 4.14-5 .80 normal Not Available [facility] ([facility]) [address] [place], [address], 06/06/2025 10:08:30 06/05/2006/06/2025 CBC WITH DIFFE RENTI AL/PL ATELE T hemoglobin 15.5 g/dL 13.0-1 7.7 normal Not Available [facility] ([facility]) [address] [place], [address], 06/06/2025 10:08:30 06/05/2006/06/2025 CBC WITH DIFFE RENTI AL/PL ATELE T hematocrit 47.3 % 37.5-5 1.0 normal Not Available [facility] ([facility]) [address] [place], [address], 06/06/2025 10:08:30 06/05/2006/06/2025 CBC WITH DIFFE RENTI AL/PL ATELE T MCV 99 fL 79-97 above high normal Not Available [facility] ([facility]) [address] [place], [address], 06/06/2025 10:08:30 06/05/20 25 06/06/2025 CBC WITH DIFFE RENTI AL/PL ATELE T MCH 32.4 pg 26.6-3 3.0 normal Not Available [facility] ([facility]) [address] [facility], [place], [address], 06/06/2025 10:08:30 06/05/20 25 06/06/2025 CBC WITH DIFFE RENTI AL/PL ATELE T MCHC 32.8 g/dL 31.5-3 5.7 normal Not Available [facility] ([facility]) [address] [place], [address], 06/06/2025 10:08:30 06/05/20 25 06/06/2025 CBC WITH DIFFE RENTI AL/PL ATELE T RDW 13.1 % 11.6-1 5.4 Not Available [facility] ([facility]) [address] [facility], [place], [address], 06/06/2025 10:08:30 06/05/2006/06/2025 CBC WITH DIFFE RENTI AL/PL ATELE T platelets 299 x10e3 /uL 150-45 0 normal Not Available [facility] ([facility]) [address] [facility], [place], [place], [address], 06/06/2025 10:08:30 06/05/2006/06/2025 CBC WITH DIFFE RENTI AL/PL ATELE T neutrophils 69 % not estab. normal Not Available [facility] ([facility]) [address] [place], [address], 06/06/2025 10:08:30 06/05/20 25 06/06/2025 CBC WITH DIFFE RENTI AL/PL ATELE T lymphs 20 % not estab. normal Not Available [facility] ([facility]) [address] [place], [address], 06/06/2025 10:08:30 06/05/20 25 06/06/2025 CBC WITH DIFFE RENTI AL/PL ATELE T monocytes 8 % not estab. normal Not Available [facility] ([facility]) [address] [facility], [place], [address], 06/06/2025 10:08:30 06/05/20 25 06/06/2025 CBC WITH DIFFE RENTI AL/PL ATELE T eos 2 % not estab. normal Not Available [facility] ([facility]) [address] [facility], [place], [address], 06/06/2025 10:08:30 06/05/20 25 06/06/2025 CBC WITH DIFFE RENTI AL/PL ATELE T basos 1 % not estab. normal Not Available [facility] ([facility]) [address] [place], [address], 06/06/2025 10:08:30 06/05/20 25 06/06/2025 CBC WITH DIFFE RENTI AL/PL ATELE T immature cells [employer] Not Available [facility] ([facility]) [address] [place], [address], 06/06/2025 10:08:30 06/05/20 25 06/06/2025 CBC WITH DIFFE RENTI AL/PL ATELE T neutrophils (absolute) 7.6 x10e3 /uL 1.4-7. 0 above high normal Not Available [facility] ([facility]) [address] [place], [address], 06/06/2025 10:08:30 06/05/20 25 06/06/2025 CBC WITH DIFFE RENTI AL/PL ATELE T lymphs (absolute) 2.2 x10e3 /uL 0.7-3. 1 normal Not Available [facility] ([facility]) [address] [place], [address], 06/06/2025 10:08:30 06/05/20 25 06/06/2025 CBC WITH DIFFE RENTI AL/PL ATELE T monocytes(ab solute) 0.9 x10e3 /uL 0.1-0. 9 normal Not Available [facility] ([facility]) [address] [facility], [place], [address], 06/06/2025 10:08:30 06/05/20 25 06/06/2025 CBC WITH DIFFE RENTI AL/PL ATELE T eos (absolute) 0.2 x10e3 /uL 0.0-0. 4 normal Not Available [facility] ([facility]) [address] [facility], [place], [address], 06/06/2025 10:08:30 06/05/20 25 06/06/2025 CBC WITH DIFFE RENTI AL/PL ATELE T baso (absolute) 0.1 x10e3 /uL 0.0-0. 2 normal Not Available [facility] ([facility]) [address] [facility], [place], [address], 06/06/2025 10:08:30 06/05/20 25 06/06/2025 CBC WITH DIFFE RENTI AL/PL ATELE T immature granulocytes 0 % not estab. Not Available [facility] ([facility]) [address] [facility], [place], [address], 06/06/2025 10:08:30 06/05/20 25 06/06/2025 CBC WITH DIFFE RENTI AL/PL ATELE T immature grans (abs) 0.0 x10e3 /uL 0.0-0. 1 Not Available [facility] ([facility]) [address] [facility], [place], [address], 06/06/2025 10:08:30 06/05/20 25 06/06/2025 CBC WITH DIFFE RENTI AL/PL ATELE T NRBC [employer] Not Available [facility] ([facility]) [address] [facility], [place], [address], 06/06/2025 10:08:30 06/05/20 25 06/06/2025 CBC WITH DIFFE RENTI AL/PL ATELE T hematology comments: [employer] Not Available [facility] ([facility]) [address] [facility], [place], [address], 06/06/2025 10:08:30 06/05/20 25 06/06/2025 COMP. METAB OLIC PANEL (14) glucose 114 mg/dL 70-99 above high normal Not Available [facility] ([facility]) [address] [facility], [place], [address], 06/06/2025 10:08:31 06/05/20 25 06/06/2025 COMP. METAB OLIC PANEL (14) BUN 13 mg/dL 8-27 normal Not Available [facility] ([facility]) [address] [facility], [place], [address], 06/06/2025 10:08:31 06/05/20 25 06/06/2025 COMP. METAB OLIC PANEL (14) creatinine 0.91 mg/dL 0.76-1 .27 normal Not Available [facility] ([facility]) [address] [facility], [place], [address], 06/06/2025 10:08:31 06/05/20 25 06/06/2025 COMP. METAB OLIC PANEL (14) eGFR 95 mL/mi n/1.7 3 >59 normal Not Available [facility] ([facility]) [address] [facility], [place], [address], 06/06/2025 10:08:31 06/05/20 25 06/06/2025 COMP. METAB OLIC PANEL (14) BUN/creatini ne ratio 14 10-24 normal Not Available [facility] ([facility]) [address] [facility], [place], [address], 06/06/2025 10:08:31 06/05/20 25 06/06/2025 COMP. METAB OLIC PANEL (14) sodium 142 mmol/ L 134-14 4 normal Not Available [facility] ([facility]) [address] [place], [address], 06/06/2025 10:08:31 06/05/20 25 06/06/2025 COMP. METAB OLIC PANEL (14) potassium 3.9 mmol/ L 3.5-5. 2 normal Not Available [facility] ([facility]) [address] [place], [address], 06/06/2025 10:08:31 06/05/20 25 06/06/2025 COMP. METAB OLIC PANEL (14) chloride 101 mmol/ L 96-106 normal Not Available [facility] ([facility]) [address] [place], [address], 06/06/2025 10:08:31 06/05/20 25 06/06/2025 COMP. METAB OLIC PANEL (14) carbon dioxide, total 25 mmol/ L 20-29 normal Not Available [facility] ([facility]) [address] [place], [address], 06/06/2025 10:08:31 06/05/20 25 06/06/2025 COMP. METAB OLIC PANEL (14) calcium 9.7 mg/dL 8.6-10 .2 normal Not Available [facility] ([facility]) [address] [place], [address], 06/06/2025 10:08:31 06/05/20 25 06/06/2025 COMP. METAB OLIC PANEL (14) protein, total 7.6 g/dL 6.0-8. 5 normal Not Available [facility] ([facility]) [address] [place], [address], 06/06/2025 10:08:31 06/05/20 25 06/06/2025 COMP. METAB OLIC PANEL (14) albumin 4.7 g/dL 3.9-4. 9 normal Not Available [facility] ([facility]) [address] [place], [address], 06/06/2025 10:08:31 06/05/20 25 06/06/2025 COMP. METAB OLIC PANEL (14) globulin, total 2.9 g/dL 1.5-4. 5 Not Available [facility] ([facility]) [address] [place], [address], 06/06/2025 10:08:31 06/05/20 25 06/06/2025 COMP. METAB OLIC PANEL (14) bilirubin, total 0.8 mg/dL 0.0-1. 2 normal Not Available [facility] ([facility]) [address] [place], [address], 06/06/2025 10:08:31 06/05/20 25 06/06/2025 COMP. METAB OLIC PANEL (14) alkaline phosphatase 81 IU/L 44-121 normal Not Available [facility] ([facility]) [address] [place], [address], 06/06/2025 10:08:31 06/05/20 25 06/06/2025 COMP. METAB OLIC PANEL (14) AST (SGOT) 17 IU/L 0-40 normal Not Available [facility] ([facility]) [address] [place], [address], 06/06/2025 10:08:31 06/05/20 25 06/06/2025 COMP. METAB OLIC PANEL (14) ALT (SGPT) 26 IU/L 0-44 normal Not Available [facility] ([facility]) [address] [place], [address], 06/06/2025 10:08:31 06/05/20 25 06/06/2025 LIPID PANEL cholesterol, total 136 mg/dL 100-19 9 normal Not Available [facility] ([facility]) [address] [place], [address], 06/06/2025 10:08:32 06/05/20 25 06/06/2025 LIPID PANEL triglyceride s 78 mg/dL 0-149 normal Not Available [facility] ([facility]) [address] [place], [address], 06/06/2025 10:08:32 06/05/20 25 06/06/2025 LIPID PANEL HDL cholesterol 46 mg/dL >39 normal Not Available [facility] ([facility]) [address] [place], [address], 06/06/2025 10:08:32 06/05/20 25 06/06/2025 LIPID PANEL VLDL cholesterol saul 15 mg/dL 5-40 Not Available [facility] ([facility]) [address] [place], [address], 06/06/2025 10:08:32 06/05/20 25 06/06/2025 LIPID PANEL LDL chol calc ([facility]) 75 mg/dL 0-99 Not Available [facility] ([facility]) [address] [place], [address], 06/06/2025 10:08:32 06/05/20 25 06/06/2025 LIPID PANEL LDL calc comment: [employer] Not Available [facility] ([facility]) [address] [place], [address], 06/06/2025 10:08:32 06/05/20 25 06/06/2025 VITAM IN B12 AND FOLAT E vitamin B12 392 pg/mL 232-12 45 normal Not Available [facility] ([facility]) [address] [place], [address], 06/06/2025 10:08:33 06/05/20 25 06/06/2025 VITAM IN B12 AND FOLAT E folate (folic acid), serum 13.0 NG/mL >3.0 normal A serum folat e janel ntrat ion of less than 3.1 ng/mL is consi dered to repre sent clini saul defic iency . Not Available [facility] ([facility]) [address] [facility], [place], [address], 06/06/2025 10:08:33 06/05/20 25 06/06/2025 HCV ANTIB BERTHA RFX TO QUANT PCR HCV Ab Non Reacti ve non reacti ve Not Available [facility] ([facility]) [address] [facility], [place], [address], 06/06/2025 10:08:33 06/05/20 25 06/06/2025 HCV ANTIB BERTHA RFX TO QUANT PCR interpretati on: Commen t Not infec phi with HCV unles s early or acute infec tion is suspe cted (whic h may be delay ed in an immun ocomp romis ed indiv idual ), or other evide nce exist s to indic ate HCV infec tion. Not Available [facility] ([facility]) [address] [facility], [place], [address], 06/06/2025 10:08:33 06/05/2006/06/2025 HEMOG LOBIN A1C hemoglobin A1C 6.2 % 4.8-5. 6 above high normal Predi abete s: 5.7 - 6.4 Diabe kasey: >6.4 Glyce taylor contr ol for adult s with diabe kasey: <7.0 Not Available [facility] ([facility]) [address] [facility], [place], [address], 06/06/2025 10:08:34 06/05/2006/06/2025 PROST ATE-S PECIF IC AG prostate specific Ag 0.5 NG/mL 0.0-4. 0 normal Josh ECLIA metho dolog y. Accor ding to the Ameri can Urolo gical Assoc iatio n, Serum PSA shoul d decre ase and remai n at undet ectab le level s after radic al prost atect nelly. The AUA defin es bioch emica l recur rence as an initi al PSA value 0.2 ng/mL or great er follo wed by a subse quent confi rmato ry PSA value 0.2 ng/mL or great er. Value s obtai kacey with diffe rent assay metho ds or kits canno t be used inter kenney eably . Resul ts canno t be inter prete d as absol [facility] evide nce of the prese nce or absen ce of marlys [place] se. Not Available [facility] ([facility]) [address] [facility], [place], [address], 06/06/2025 10:08:35 06/05/20 25 06/06/2025 VITAM IN D, 25-HY DROXY vitamin D, 25-hydroxy 18.9 NG/mL 30.0-1 00.0 below low normal Vitam in D defic iency has been defin ed by the Insti tute of Medic ine and an Endoc rine Socie ty pract ice guide line as a level of serum 25-OH vitam in D less than 20 ng/mL (1,2) . The Endoc rine Socie ty went on to furth er defin e vitam in D insuf ficie ncy as a level betwe en 21 and 29 ng/mL (2). 1. IOM (Inst itute of Medic ine). 2009. Dieta ry refer ence intak es for calci um and D. Timo mosher [place]: The [facility] . 2. Pennie maciel MF, Alessandro mireles [place], Savita off-F errar i MILLER, et al. Evalu ation , treat ment, and preve ntion of vitam in D defic iency : an Endoc rine Socie ty clini saul pract ice guide line. JCEM. 2010; 96(7) :1911 -30. Not Available [facility] ([facility]) [address] [facility], [place], [address], 06/06/2025 10:08:36 06/05/20 25 06/05/2025 HbA1c (hemo globi n A1c), blood HbA1c 6.3 Not Available [address], [address], 06/04/2025 15:05:23 09/27/20 25 09/27/2025 micro album in/cr eatin ine, mass ratio , urine Microalbumin 30 Not Available [address], [address], 09/27/2025 08:25:36 09/27/20 25 09/27/2025 micro album in/cr eatin ine, mass ratio , urine Creatinine 300 Not Available [address], [address], 09/27/2025 08:25:36 09/27/20 25 09/27/2025 micro album in/cr eatin ine, mass ratio , urine Ratio <30 Not Available [address], [address], 09/27/2025 08:25:36 09/27/20 25 09/27/2025 HbA1c (hemo globi n A1c), blood HbA1c 6.0 Not Available [address], [address], 09/27/2025 08:24:45 08/04/20 24 08/04/2024 CT, abdom en + pelvi s, w/o contr ast No observ ation record ed. [facility] [address], [place], [address], 08/29/2024 12:50:32 01/03/20 25 01/03/2025 CT, abdom en + pelvi s, w/ contr ast No observ ation record ed. [email or web address] [facility] (Radiology) [address] , [place], [address], 01/09/2025 10:55:31 02/01/20 25 01/24/2025 stres s echoc ardio gram with doppl er color flow (PROC ) No observ ation record ed. [address], [place], [address], 02/01/2025 10:40:40 04/12/20 25 04/12/2025 XR, chest , 2 view No observ ation record ed. [facility] (Radiology) [address] [facility], [place], [address], 04/27/2025 10:34:30 09/20/20 25 09/20/2025 XR, chest No observ ation record ed. [address], [place], [address], 09/25/2025 09:56:52 09/27/20 XR, lumba r spine No observ ation record ed. [address], [address], 10/08/2025 15:14:59 Result Notes None recorded. Problems Name Problem SNOMED Code Status Onset Date Resolution Date Notes Provider Name and Address Organization Details Recorded Time Johanny [id number] Completed 201604/12/2017 Problem Code: K92.1; Problem Code Type: ICD-10; Not Available [facility] 2 20:49:49 Altered bowel function 36269787 Completed 201604/12/2017 Problem Code: R19.4; Problem Code Type: ICD-10; Not Available [facility] 2 20:49:59 Digestiv e symptom 256814521 Completed 201604/12/2017 Problem Code: 787.99; Problem Code Type: ICD-9; Not Available [facility] 2 20:50:00 Hematoch ezia 312514621 Completed 201604/12/2017 Problem Code: 578.1; Problem Code Type: ICD-9; Not Available [facility] 2 20:50:00 Hyperten sive disorder 14604685 Active 2016 Problem Code: I10; Problem Code Type: ICD-10; Not Available [facility] 2 20:49:49 Large prostate 634444855 Active 2016 Problem Code: N40.0; Problem Code Type: ICD-10; Not Available [facility] 2 20:49:50 Benign essentia l hyperten michelle 3010076 Completed 201611/20/2021 Problem Code: 401.1; Problem Code Type: ICD-9; Not Available [facility] 2 20:49:58 Benign prostati c hyperpla angela 074921431 Completed 201611/20/2021 Problem Code: 600.00; Problem Code Type: ICD-9; Not Available [facility] 2 20:50:01 Silviano hematuri a 446090352 Completed 201610/31/2019 Problem Code: R31.0; Problem Code Type: ICD-10; Not Available [facility] 2 20:49:52 Primary malignan t neoplasm of urinary bladder 76883219 Completed 201611/20/2021 Problem Code: 188.8; Problem Code Type: ICD-9; Not Available [facility] 2 20:49:56 Silviano hematuri a 936800920 Completed 201610/31/2019 Problem Code: R31.0; Problem Code Type: ICD-10; Not Available [facility] 2 20:50:00 Acute exacerba tion of chronic obstruct arlene pulmonar y disease 977699858 Active 2016 Problem Code: J44.1; Problem Code Type: ICD-10; Not Available [facility] 2 20:49:49 Cough 10726412 Completed 201609/12/2017 Problem Code: R05; Problem Code Type: ICD-10; Not Available [facility] 2 20:49:51 Acute exacerba tion of chronic bronchit is 649743758 Completed 201608/25/2022 YAZMIN verma [employer] 2 10:17:07 Respirat ory symptom 573838197 Completed 201607/28/[address] [facility] 20:50:01 Benign essentia l hyperten michelle 2404035 Completed 201611/20/2021 Problem Code: 401.1; Problem Code Type: ICD-9; Not Available [facility] 2 20:49:58 Pain in right lower limb 890561858 Completed 201608/25/2022 YAZMIN ROYNER bayron, [employer]. 10:17:07 Low back pain 313217450 Completed 201603/30/2020 Problem Code: M54.5; Problem Code Type: ICD-10; YAZMIN ROYNER bayron, [employer] 2 10:17:07 Benign essentia l hyperten michelle 3702264 Completed 201611/20/2021 Problem Code: 401.1; Problem Code Type: ICD-9; Not Available [facility] 2 20:49:58 Pain in limb 99645651 Completed 201608/25/2022 Problem Code: 729.5; Problem Code Type: ICD-9; YAZMINTIMOTEO LUCAS bayron, [employer] 10:17:07 Low back pain 201395818 Completed 201708/25/2022 Problem Code: M54.5; Problem Code Type: ICD-10; YAZMIN verma, [employer] 2 10:17:07 Mixed hyperlip idemia 633415491 Active 2018 Problem Code: E78.2; Problem Code Type: ICD-10; Not Available [facility] 20:49:48 Abnormal weight gain 240250539 Completed 201808/25/2022 Problem Code: R63.5; Problem Code Type: ICD-10; YAZMIN verma, [employer] 2 10:17:07 Abnormal finding on evaluati on procedur e 256481323 Completed 201808/25/2022 YAZMINTIMOTEO [employer]ma[employer]on[employer]. 10:17:07 Acute bronchit is 79968535 Completed 201810/31/2019 Problem Code: J20.9; Problem Code Type: ICD-10; Not Available [facility] 2 20:49:49 Cough 05152449 Completed 201810/31/2019 Problem Code: R05; Problem Code Type: ICD-10; Not Available [facility] 2 20:49:51 Chest pain 23126275 Completed 201803/30/2020 Problem Code: R07.89; Problem Code Type: ICD-10; YAZMIN verma, [employer]. 10:17:07 Body mass index 30+ - obesity 150761476 Completed 201803/04/2021 Problem Code: Z68.30; Problem Code Type: ICD-10; Not Available [facility] 2 20:49:55 Degenera tion of lumbar interver tebral disc 81475522 Active 2018 Problem Code: M51.36; Problem Code Type: ICD-10; Not Available [facility] 2 20:49:49 Degenera tion of lumbosac ral interver tebral disc 93359169 Completed 201808/25/2022 Problem Code: M51.37; Problem Code Type: ICD-10; YAZMIN verma, [employer] 2 10:17:07 Body mass index 30+ - obesity 201308366 Completed 201803/04/2021 Problem Code: Z68.30; Problem Code Type: ICD-10; Not Available [facility] 2 20:50:02 Low back pain 864716984 Completed 201803/30/2020 Problem Code: M54.5; Problem Code Type: ICD-10; [employer] 2 10:17:07 Pain in thoracic spine 689079657 Completed 201808/25/2022 Problem Code: M54.6; Problem Code Type: ICD-10; YAZMIN verma, [employer] 2 10:17:07 Insomnia co-occur rent and due to medical conditio n 59538703881 105 Active 2018 Problem Code: G47.01; Problem Code Type: ICD-10; YAZMIN verma, [employer] 2 10:17:21 Low back pain 659957352 Completed 201803/30/2020 Problem Code: M54.5; Problem Code Type: ICD-10; YAZMIN verma, [employer]. 10:17:07 Body mass index 30+ - obesity 717496823 Completed 201803/04/2021 Problem Code: Z68.30; Problem Code Type: ICD-10; Not Available [facility] 2 20:49:54 Hematoma of thigh 287009075 Completed 201903/04/2021 Problem Code: S70.12XD ; Problem Code Type: ICD-10; Not Available [facility] 2 20:49:52 General examinat ion of patient Completed 201903/04/[address] [facility] 2 20:49:53 Body mass index 30+ - obesity 651563658 Completed 201903/04/2021 Problem Code: Z68.30; Problem Code Type: ICD-10; Not Available [facility] 2 20:49:54 Chest pain 69757067 Completed 201908/25/2022 Problem Code: R07.89; Problem Code Type: ICD-10; YAZMIN verma, [employer] 2 10:17:07 Body mass index 30+ - obesity 199685242 Completed 201903/04/2021 Problem Code: Z68.30; Problem Code Type: ICD-10; Not Available [facility] 2 20:49:55 Nicotine dependen ce 93877873 Active 2020 Problem Code: F17.200; Problem Code Type: ICD-10; Not Available [facility] 20:49:49 Body mass index 30+ - obesity 152226895 Completed 202011/20/2021 Problem Code: Z68.30; Problem Code Type: ICD-10; Not Available [facility] 20:49:56 Myositis 47745286 Completed 202008/25/2022 Problem Code: M60.9; Problem Code Type: ICD-10; YAZMIN [employer]. 10:17:07 Cough 84451343 Completed 202011/20/2021 Problem Code: R05; Problem Code Type: ICD-10; Not Available [facility] 20:49:51 COVID-19 657606068 Completed 202011/20/2021 Problem Code: U07.1; Problem Code Type: ICD-10; Not Available [facility] 20:49:53 Exposure to SARS-CoV -2 Completed 202008/25/2022 Problem Code: Z20.822; Problem Code Type: ICD-10; YAZMIN verma [employer] 10:17:07 Swelling / lump finding Completed 202002/13/2022 Problem Code: R22.9; Problem Code Type: ICD-10; Not Available [facility] 20:49:52 Myositis 46843998 Completed 202102/13/2022 Problem Code: M60.9; Problem Code Type: ICD-10; YAZIMN verma [employer] 10:17:07 Acute respirat ory infectio ns 890057211 Completed 202108/25/2022 Problem Code: J22; Problem Code Type: ICD-10; YAZMIN verma [employer]. 10:17:07 Wheezing 98174092 Active 2021 Problem Code: R06.2; Problem Code Type: ICD-10; YAZMIN LUCAS bayron, [employer] 2 10:17:27 Body mass index 30+ - obesity 975781952 Active 2021 Problem Code: Z68.30; Problem Code Type: ICD-10; Not Available [facility] 2 20:49:55 Puncture wound of hand 166744183 Completed 202108/25/2022 Problem Code: S61.432A ; Problem Code Type: ICD-10; YAZMIN LUCAS bayron, [employer] 2 10:17:07 Type 2 diabetes mellitus 03674547 Active 2023 Margoth verma, [employer] 4 08:33:05 Lacerati on of right forearm 80226810242 153619 Active 2023 Negrita Zavala NP [address] [place], [address] , [employer] 4 16:20:34 Cellulit is of right forearm 90876132264 755237 Active 2023 Negrita Zavala NP [address] [place] [address], [address] , [employer] 4 16:24:03 Type 2 diabetes mellitus without complica tion 373493952 Active 2023 Margoth verma, [employer] 4 13:30:24 Overweig ht in adulthoo d with body mass index of 25 or more but less than 30 022266418 Active 2024 Margoth Frazier null, [employer] 5 15:06:19 Hyperlip idemia 39657620 Active 2024 Margoth Frazier null, [employer] 5 15:06:49 Hypergly cemia 88425439 Active 2024 Margothreena verma [employer] 5 15:06:50 Fatigue 23438901 Active 2024 Margoth verma [employer] 5 15:06:50 Nocturia 272079769 Active 2024 Margoth verma, [employer] 5 15:06:54 Diabetes mellitus 39861832 Active 2024 Margoth verma [employer] 5 08:24:41 Problem Notes None recorded. Procedures Surgical History Date Name Laterality Status Provider Name and Address Organization Details Recorded Time procedure on urinary bladder completed [employer] 08/25/2022 10:19:49 repair of aneurysm of aorta completed [employer] 08/25/2022 10:20:42 Stent completed [employer] 10/19/2022 15:33:35 Imaging Results None recorded. Procedure Notes None recorded. Medical Equipment None Reported. Allergies No known drug allergies Medications Name Sig Start Date Stop Date Status Note LastModified by Organization Details LastModified Time losartan 50 mg tablet Take 1 tablet(s ) by mouth daily 01/23 completed Not Available Not Available Not Available cyclobenza alireza 10 mg tablet take 1 tablet (10 mg) by oral route 3 times per day PRN back pain 10/18 completed Not Available Not Available Not Available atorvastat in 40 mg tablet Take 1 tablet(s ) by mouth at bedtime. 03/04 completed Not Available Not Available Not Available metformin 500 mg tablet Take 1 tablet twice a day by oral route for 90 days. 08/04 completed Not Available Not Available Not Available atorvastat in 80 mg tablet TAKE 1 TABLET BY MOUTH ONCE DAILY active cardio Not Available Not Available No t Available doxycyclin e hyclate 100 mg capsule TAKE ONE CAPSULE BY MOUTH every 12 hours 06/02 completed Not Available Not Available Not Available albuterol sulfate 2.5 mg/3 mL (0.083 %) solution for nebulizati on TAKE THREE ML via NEBULIZE R EVERY 4 HOURS NEEDED FOR wheezing OR shortnes s of breath active Not Available Not Available No t Available trazodone 50 mg tablet Take 1 tablet every day by oral route in the evening. 2024 active Not Available Not Available Not Avai lable cetirizine 10 mg tablet take 1 tablet (10 mg) by oral route once daily 2024 active Not Available Not Available Not Avai lable metoprolol tartrate 100 mg tablet Take 1 tablet every morning and 1/2 tablet every evening 05/26 completed Not Available Not Available Not Available tizanidine 4 mg tablet 1 po q hs 06/19 completed Not Available Not Available Not Available metoprolol succinate ER 50 mg tablet,ext ended release 24 hr Take 1 tablet(s ) by mouth daily 08/04 completed Not Available Not Available Not Available hydrocodon e 5 mg-acetami nophen 325 mg tablet Take 1 tablet 3 times a day by oral route as needed for 3 days. 10/07 completed Not Available Not Available Not Available ondansetro n HCl 4 mg tablet TAKE ONE TABLET BY MOUTH EVERY 6 HOURS NEEDED FOR NAUSEA AND VOMITING active Not Available Not Available No t Available Medrol (Jovi) 4 mg tablets in a dose pack As directed 10/30 completed Not Available Not Available Not Available prednisone 20 mg tablet TAKE THREE TABLETS BY MOUTH ONCE daily FOR FIVE DAYS 06/05 completed Not Available Not Available Not Available dexamethas one 6 mg tablet take 1 tablet (6 mg) by oral route every day x10 days 11/20 completed Not Available Not Available Not Available metoprolol succinate ER 100 mg tablet,ext ended release 24 hr Take 1 tablet(s ) by mouth daily 01/23 completed Not Available Not Available Not Available prednisone 5 mg tablet 10 pills po today and decrease by one pill each day 04/04 completed Not Available Not Available Not Available methylpred nisolone 4 mg tablet as directed 02/17 completed Not Available Not Available Not Available potassium chloride ER 10 mEq tablet,ext ended release Take 1 tablet(s ) by mouth daily 01/23 completed Not Available Not Available Not Available clopidogre l 75 mg tablet TAKE 1 TABLET BY MOUTH ONCE DAILY active Not Available Not Available No t Available dextrometh orphan-gua ifenesin 10 mg-100 mg/5 mL oral syrup Take 1 teaspoon by mouth q4h prn for cough 04/04 completed Not Available Not Available Not Available amlodipine 5 mg tablet TAKE 1 TABLET BY MOUTH DAILY active cardio Not Available Not Available No t Available Depo-Medro l 80 mg/mL suspension for injection Take 1 mL by injectio n route. 2024 active Not Available Not Available Not Avai lable bisoprolol fumarate 10 mg tablet TAKE 1.5 TABLETS BY MOUTH TWICE DAILY active cardio Not Available Not Available No t Available isosorbide mononitrat e ER 120 mg tablet,ext ended release 24 hr TAKE ONE TABLET BY MOUTH DAILY active cardio Not Available Not Available No t Available isosorbide mononitrat e ER 60 mg tablet,ext ended release 24 hr Take 1 Tablet by mouth every morning 10/19 completed Not Available Not Available Not Available tamsulosin 0.4 mg capsule TAKE 1 CAPSULE BY MOUTH EVERY DAY active Not Available Not Available No t Available benzonatat e 100 mg capsule TAKE ONE CAPSULE BY MOUTH every EIGHT hours NEEDED active Not Available Not Available No t Available doxycyclin e monohydrat e 100 mg capsule take 1 capsule (100 mg) by oral route 2 times per day 02/23 completed Not Available Not Available Not Available Lasix 20 mg tablet 1 po daily 10/03 completed Not Available Not Available Not Available cephalexin 500 mg capsule 10/19 completed Not Available Not Available Not Available metformin 1,000 mg tablet TAKE 1 TABLET BY MOUTH TWICE DAILY FOR 90 DAYS active Not Available Not Available No t Available lidocaine 5 % topical patch apply 1 patch by topical route once daily (May wear up to 12hours. ) 03/30 completed Not Available Not Available Not Available promethazi ne 25 mg tablet TAKE ONE TABLET BY MOUTH EVERY 4 HOURS NEEDED active Not Available Not Available No t Available nitroglyce rin 0.4 mg sublingual tablet DISSOLVE ONE TABLET UNDER THE TONGUE every 5-15 minutes as needed for chest pain until response , not to exceed 3 doses per episode active Not Available Not Available No t Available aspirin 81 mg chewable tablet one tablet every other day 2021 active cardio Not Available Not Available Not Avai lable diclofenac sodium 75 mg tablet,del ayed release Take 1 tablet(s ) by mouth bid 03/21 completed Not Available Not Available Not Available cephalexin 500 mg tablet take 1 tablet (500 mg) by oral route 4 times per day for 7 days 08/25 completed Not Available Not Available Not Available etodolac 400 mg tablet take 1 tablet (400 mg) by oral route 2 times per day with food PRN back pain 03/30 completed Not Available Not Available Not Available ergocalcif lizette (vitamin D2) 1,250 mcg (50,000 unit) capsule Take 1 capsule every week by oral route for 90 days. 2024 active Not Available Not Available Not Avai lable prednisone 5 mg tablets in a dose pack as directed 03/30 completed Not Available Not Available Not Available levofloxac in 500 mg tablet Take 1 tablet(s ) by mouth daily 03/12 completed Not Available Not Available Not Available albuterol sulfate HFA 90 mcg/actuat ion aerosol inhaler Inhale 2 puffs every 4 hours by inhalati on route as needed. active Not Available Not Available No t Available ketorolac 60 mg/2 mL intramuscu lar solution Inject 2 mL every 6 hours by intramus cular route. 2024 active Not Available Not Available Not Avai lable ondansetro n 4 mg disintegra ting tablet DISSOLVE ONE TABLET ON TONGUE EVERY 6 HOURS NEEDED FOR NAUSEA AND FOR VOMITING FOR 3 DAYS 06/05 completed Not Available Not Available Not Available cefdinir 300 mg capsule TAKE ONE CAPSULE BY MOUTH TWICE DAILY FOR 7 DAYS 06/05 completed Not Available Not Available Not Available losartan 100 mg tablet TAKE 1 TABLET BY MOUTH ONCE DAILY active cardio Not Available Not Available No t Available Bactrim DS 800 mg-160 mg tablet Take 1 tablet every 12 hours by oral route. 08/04 completed Not Available Not Available Not Available bupropion HCl XL 150 mg 24 hr tablet, extended release 01/18 completed Not Available Not Available Not Available Ranexa 500 mg tablet,ext ended release Take 1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
--- OUTSIDE RECORDS SUMMARY | 2025-10-10 08:23 | XMS_ITS | Continuity of Care Document ---
Author Organization [facility] Address [address] [place] [address] Care Team Providers Care Assault Boat Coxswain Name Role Phone NICOLAS TAVARES Evaporative Cooler Installer GAVIN GONZALEZ Full Stack Software Developer WENDY BOYCE Neurosurgeon Assessment Encounter Date Assessment Date Assessment LastModified by Organization Details LastModified Time 09/27/2025 09/27/2025 Patient presented for medication refill. Patient tolerating medication well at current dose without adverse effects. Refilled as below. Discussed plan with patient, who expressed understanding . Follow up as noted below. [email or web address] Not available 09/27/2025 18:45:51 Plan of Treatment Reminders Order Date Submit Date Provider Last Modified By Organization Details Last Modified Time Details Appointments None recorded. Lab HbA1c (hemoglobin A1c), blood [address], [address], 17:18:15 microalbumi n/creatinin e, mass ratio, urine [address], [address], 17:18:15 Referral None recorded. Procedures diabetic foot screen (PROC) 2024 025 [email or web address] Not available 09:45:36 Surgeries None recorded. Imaging XR, lumbar spine 2024 [facility], [address] [place] [address], [phone], 15:07:50 Medication Orders cetirizine 10 mg tablet 2024 025 [facility], [address] [place] [address], [address], 5 12:03:19 hydrocodone 5 mg-acetamin ophen 325 mg tablet 2024 [facility], [address] [place] [address], [address], 5 05:01:47 ketorolac 60 mg/2 mL intramuscul ar solution [address], [address] [place] [address], [address], 18:46:18 Depo-Medrol 80 mg/mL suspension for injection [address], [address] [place] [address], [address], 5 18:46:18 albuterol sulfate HFA 90 mcg/actuati on aerosol inhaler 2024 025 [facility], [address] [place] [address], [address], 5 10:42:48 Trelegy Ellipta 100 mcg-62.5 mcg-25 mcg powder for inhalation 2024 025 [facility], [address] [place] [address], [address], 5 10:42:48 trazodone 50 mg tablet 2024 025 [facility], [address] [place] [address], [address], 10:57:48 ergocalcife rol (vitamin D2) 1,250 mcg (50,000 unit) capsule [email or web address] [facility], [address] [place] [address], [address], 09:45:36 Jardiance 25 mg tablet 2024 025 [facility], [address] [place] [address], [address], 10:42:48 metformin 1,000 mg tablet 2024 025 [facility], [address] [place] [address], [address], 10:42:49 tamsulosin 0.4 mg capsule 2024 025 [facility], [address] [place] [address], [address], 10:42:49 Patient TargetsNo targets recorded. Patient Instructions Encounter Date Encounter Id Patient Instructions Last Modified By Organization Details Last Modified Time 09/27/2025 [id number] diabetes foot health: care instructions Not available 09/27/2025 17:18:15 Reason for Referral None Reported. Results Created Date Observation Date Name Description Value Unit Range Abnormal Flag Note LastModifiedBy Organization Detail LastModifiedTime 09/27/2009/27/2025 micro album in/cr eatin ine, mass ratio , urine Microalbumin 30 Not Available [address], [address], 09/27/2025 08:25:36 09/27/20 25 09/27/2025 micro album in/cr eatin ine, mass ratio , urine Creatinine 300 Not Available [address], [address], 09/27/2025 08:25:36 09/27/2009/27/2025 micro album in/cr eatin ine, mass ratio , urine Ratio <30 Not Available [address], [address], 09/27/2025 08:25:36 09/27/2009/27/2025 HbA1c (hemo globi n A1c), blood HbA1c 6.0 Not Available [address], [address], 09/27/2025 08:24:45 09/20/20 25 09/20/2025 XR, chest No observ ation record ed. [address], [place], [address], 09/25/2025 09:56:52 09/27/20 XR, lumba r spine No observ ation record ed. [address], [address], 10/08/2025 15:14:59 Result Notes None recorded. Problems Name Problem SNOMED Code Status Onset Date Resolution Date Notes Provider Name and Address Organization Details Recorded Time Johanny [id number] Completed 201604/12/2017 Problem Code: K92.1; Problem Code Type: ICD-10; Not Available [facility] 2 20:49:49 Altered bowel function 11981975 Completed 201604/12/2017 Problem Code: R19.4; Problem Code Type: ICD-10; Not Available [facility] 2 20:49:59 Digestiv e symptom 087913347 Completed 201604/12/2017 Problem Code: 787.99; Problem Code Type: ICD-9; Not Available [facility] 2 20:50:00 Hematoch ezia 624766348 Completed 201604/12/2017 Problem Code: 578.1; Problem Code Type: ICD-9; Not Available [facility] 2 20:50:00 Hyperten sive disorder 24213907 Active 2016 Problem Code: I10; Problem Code Type: ICD-10; Not Available [facility] 2 20:49:49 Large prostate 171370392 Active 2016 Problem Code: N40.0; Problem Code Type: ICD-10; Not Available [facility] 2 20:49:50 Benign essentia l hyperten michelle 7772899 Completed 201611/20/2021 Problem Code: 401.1; Problem Code Type: ICD-9; Not Available [facility] 2 20:49:58 Benign prostati c hyperpla angela 810461368 Completed 201611/20/2021 Problem Code: 600.00; Problem Code Type: ICD-9; Not Available [facility] 2 20:50:01 Silviano hematuri a 069370126 Completed 201610/31/2019 Problem Code: R31.0; Problem Code Type: ICD-10; Not Available [facility] 2 20:49:52 Primary malignan t neoplasm of urinary bladder 42088726 Completed 201611/20/2021 Problem Code: 188.8; Problem Code Type: ICD-9; Not Available [facility] 2 20:49:56 Silviano hematuri a 840294050 Completed 201610/31/2019 Problem Code: R31.0; Problem Code Type: ICD-10; Not Available [facility] 2 20:50:00 Acute exacerba tion of chronic obstruct arlene pulmonar y disease 971042440 Active 2016 Problem Code: J44.1; Problem Code Type: ICD-10; Not Available [facility] 2 20:49:49 Cough 32844783 Completed 201609/12/2017 Problem Code: R05; Problem Code Type: ICD-10; Not Available [facility] 2 20:49:51 Acute exacerba tion of chronic bronchit is 230754035 Completed 201608/25/2022 YAZMIN verma, [employer] 2 10:17:07 Respirat ory symptom 210465169 Completed 201607/28/2017 Not Available [facility] 2 20:50:01 Benign essentia l hyperten michelle 5806474 Completed 201611/20/2021 Problem Code: 401.1; Problem Code Type: ICD-9; Not Available [facility] 2 20:49:58 Pain in right lower limb 919109299 Completed 201608/25/2022 YAZMIN verma, [employer] 2 10:17:07 Low back pain 186133081 Completed 201603/30/2020 Problem Code: M54.5; Problem Code Type: ICD-10; YAZMIN verma, [employer] 2 10:17:07 Benign essentia l hyperten michelle 7722847 Completed 201611/20/2021 Problem Code: 401.1; Problem Code Type: ICD-9; Not Available [facility] 2 20:49:58 Pain in limb 88759844 Completed 201608/25/2022 Problem Code: 729.5; Problem Code Type: ICD-9; YAZMIN verma, [employer] 2 10:17:07 Low back pain 186624188 Completed 201708/25/2022 Problem Code: M54.5; Problem Code Type: ICD-10; YAZMIN verma, [employer] 10:17:07 Mixed hyperlip idemia 932225662 Active 2018 Problem Code: E78.2; Problem Code Type: ICD-10; Not Available [facility] 2 20:49:48 Abnormal weight gain 779382358 Completed 201808/25/2022 Problem Code: R63.5; Problem Code Type: ICD-10; [employer] 10:17:07 Abnormal finding on evaluati on procedur e 170955710 Completed 201808/25/2022 [employer] 10:17:07 Acute bronchit is 27979108 Completed 201810/31/2019 Problem Code: J20.9; Problem Code Type: ICD-10; Not Available [facility] 20:49:49 Cough 41583737 Completed 201810/31/2019 Problem Code: R05; Problem Code Type: ICD-10; Not Available [facility] 20:49:51 Chest pain 08018987 Completed 201803/30/2020 Problem Code: R07.89; Problem Code Type: ICD-10; [employer] 10:17:07 Body mass index 30+ - obesity 255916686 Completed 201803/04/2021 Problem Code: Z68.30; Problem Code Type: ICD-10; Not Available [facility] 20:49:55 Degenera tion of lumbar interver tebral disc 44392006 Active 2018 Problem Code: M51.36; Problem Code Type: ICD-10; Not Available [facility] 2 20:49:49 Degenera tion of lumbosac ral interver tebral disc 37473321 Completed 201808/25/2022 Problem Code: M51.37; Problem Code Type: ICD-10; [employer] 10:17:07 Body mass index 30+ - obesity 423085348 Completed 201803/04/2021 Problem Code: Z68.30; Problem Code Type: ICD-10; Not Available [facility] 2 20:50:02 Low back pain 135253107 Completed 201803/30/2020 Problem Code: M54.5; Problem Code Type: ICD-10; YAZMIN verma, [employer] 2 10:17:07 Pain in thoracic spine 678708654 Completed 201808/25/2022 Problem Code: M54.6; Problem Code Type: ICD-10; YAZMIN verma, [employer] 2 10:17:07 Insomnia co-occur rent and due to medical conditio n 89326520315 105 Active 2018 Problem Code: G47.01; Problem Code Type: ICD-10; YAZMIN verma, [employer] 2 10:17:21 Low back pain 595799633 Completed 201803/30/2020 Problem Code: M54.5; Problem Code Type: ICD-10; YAZMIN verma, [employer] 2 10:17:07 Body mass index 30+ - obesity 949872323 Completed 201803/04/2021 Problem Code: Z68.30; Problem Code Type: ICD-10; Not Available [facility] 2 20:49:54 Hematoma of thigh 328366746 Completed 201903/04/2021 Problem Code: S70.12XD ; Problem Code Type: ICD-10; Not Available [facility] 2 20:49:52 General examinat ion of patient Completed 201903/04/2021 Not Available [facility] 2 20:49:53 Body mass index 30+ - obesity 546477738 Completed 201903/04/2021 Problem Code: Z68.30; Problem Code Type: ICD-10; Not Available [facility] 2 20:49:54 Chest pain 84827590 Completed 201908/25/2022 Problem Code: R07.89; Problem Code Type: ICD-10; YAZMIN verma, [employer] 2 10:17:07 Body mass index 30+ - obesity 066462265 Completed 201903/04/2021 Problem Code: Z68.30; Problem Code Type: ICD-10; Not Available [facility] 20:49:55 Nicotine dependen ce 20342126 Active 2020 Problem Code: F17.200; Problem Code Type: ICD-10; Not Available [facility] 20:49:49 Body mass index 30+ - obesity 551390712 Completed 202011/20/2021 Problem Code: Z68.30; Problem Code Type: ICD-10; Not Available [facility] 20:49:56 Myositis 96870655 Completed 202008/25/2022 Problem Code: M60.9; Problem Code Type: ICD-10; YAZMIN verma [employer] 10:17:07 Cough 46069059 Completed 202011/20/2021 Problem Code: R05; Problem Code Type: ICD-10; Not Available [facility] 20:49:51 COVID-19 089259822 Completed 202011/20/2021 Problem Code: U07.1; Problem Code Type: ICD-10; Not Available [facility] 20:49:53 Exposure to SARS-CoV -2 Completed 202008/25/2022 Problem Code: Z20.822; Problem Code Type: ICD-10; YAZMIN verma [employer] 10:17:07 Swelling / lump finding Completed 202002/13/2022 Problem Code: R22.9; Problem Code Type: ICD-10; Not Available [facility] 20:49:52 Myositis 30739235 Completed 202102/13/2022 Problem Code: M60.9; Problem Code Type: ICD-10; YAZMIN verma [employer] 10:17:07 Acute respirat ory infectio ns 626103394 Completed 202108/25/2022 Problem Code: J22; Problem Code Type: ICD-10; YAZMIN verma, [employer] 2 10:17:07 Wheezing 14518594 Active 2021 Problem Code: R06.2; Problem Code Type: ICD-10; YAZMIN verma, [employer] 2 10:17:27 Body mass index 30+ - obesity 182271886 Active 2021 Problem Code: Z68.30; Problem Code Type: ICD-10; Not Available [facility] 2 20:49:55 Puncture wound of hand 722612934 Completed 202108/25/2022 Problem Code: S61.432A ; Problem Code Type: ICD-10; YAZMIN verma, [employer] 2 10:17:07 Type 2 diabetes mellitus 86308509 Active 2023 Margoth verma, [employer] 4 08:33:05 Lacerati on of right forearm 24356802632 806897 Active 2023 Negrita Zavala NP [address] [place], [address] , [employer] 4 16:20:34 Cellulit is of right forearm 82908093861 439337 Active 2023 Negrita Zavala NP [address] [place], [address] , [employer] 4 16:24:03 Type 2 diabetes mellitus without complica tion 578623063 Active 2023 Margoth verma, [employer] 4 13:30:24 Overweig ht in adulthoo d with body mass index of 25 or more but less than 30 640986149 Active 2024 Margoth verma, [employer] 5 15:06:19 Hyperlip idemia 00712299 Active 2024 Margothreena verma, [employer] 5 15:06:49 Hypergly cemia 68832142 Active 2024 Margoth verma, [employer] 5 15:06:50 Fatigue 81181958 Active 2024 Margoth verma, [employer] 5 15:06:50 Nocturia 448387185 Active 2024 Margoth verma, [employer] 5 15:06:54 Diabetes mellitus 99511410 Active 2024 [employer] 5 08:24:41 Problem Notes None recorded. Procedures Surgical History Date Name Laterality Status Provider Name and Address Organization Details Recorded Time procedure on urinary bladder completed [employer] 08/25/2022 10:19:49 repair of aneurysm of aorta completed [employer] 08/25/2022 10:20:42 Stent completed [employer] 10/19/2022 15:33:35 Imaging Results None recorded. Procedure [...] Updated DateTime 5 185.42 cm 26.7 kg/m2 02757.6 6 g 97 % 97 % 78 /min 150/82 mm[Hg] 162/88 mm[Hg] 138/90 mm[Hg] Margoth Frazier [employer], [employer] 09:04:14 Social History Question Answer Notes LastModified by Organizat ion Details LastModified Time Tobacco Smoking Status Current Some Day Smoker YAZMIN verma, [employer] 08/25/2022 10:19:13 Are You Blind Or Do You Have Difficulty Seeing? No Information n ot available 08/25/2022 What Is [...] Do You Have Serious Difficulty Hearing? No Information not available 08/25/2022 What Was The Date Of Your Most Recent Tobacco Screening? 09/27/2025 Information not available 09/27/2025 What Is Your Current Pack Years? 30ormorepack years [email or web address] Information not available 08/25/2022 What Is Your Relationship Status? [email or web address] Information not available 08/25/2022 Do You Have Smoke And Carbon Monoxide Detectors In Your Home? Yes Information not available 04/27/2023 How Much Tobacco Do You Smoke? 1 PPD [email or web address] Information not available 08/25/2022 Has Tobacco Cessation Counseling Been Provided? Yes Information not available 04/27/2023 On What Date Was Tobacco Cessation Counseling Provided? 09/27/2025 Information not available 09/27/2025 Have You Recently Traveled Abroad? No Information not available 04/27/2023 Do You Have Difficulty Walking Or Climbing Stairs? No [email or web address] Information not available 08/25/2022 Are You Currently In School? No [email or web address] Information not available 08/25/2022 Sex: Unknown Functional Status Question Answer Note LastModified by Organizat ion Details LastModified Time Do you use any illicit or recreational drugs? No Information not available 04/27/2023 What is your level of alcohol consumption? None Information not available 04/27/2023 Are you currently employed? No [email or web address] Information not available 08/25/2022 Do you have transportation difficulties? No Information not available 08/25/2022 Are you able to walk independently without assistance or assistive devices? YESWOREST [email or web address] Information not available 08/25/2022 Do you have difficulty doing errands alone? No [email or web address] Information not available 08/25/2022 Are you able to care for yourself independently? Yes [email or web address] Information not available 08/25/2022 Do you have difficulty dressing, bathing, grooming, or toileting? No [email or web address] Information not available 08/25/2022 Mental Status Question Answer Note LastModified by Organization D etails LastModified Time Do you have difficulty concentrating, remembering or making decisions? No [email or web address] Information no t available 08/25/2022 Family History Relationship Description Onset Age of this Age Resolved Age Notes LastModified by Organization Details LastModified Time Father Family history of Myocardial infarction [email or web address] Not available 02/2022 10:18:04 Medical History Condition Response Coronary Artery Disease N Other N Gout N Blood Diseases N Kidney Stones N Hyperthyroidism N Blood Transfusion N Breast Cancer N Emergency room visit since last appointm ent. N Lung Disease N COPD N Depression N Hypothyroidism N Dermatologic Disorders N Defects or Inherited Disease N Developmental or Behavioral Disorders N Breast Problem N Difficulty Swallowing N [...] N High Cholesterol N Liver Disease N Organ Transplant N Psychiatric/Mental Health Condition N Dialysis N Headaches N Fibromyalgia N Schizophrenia N Kidney Disease N Allergies/Hayfever N Heart Problems N Ear or Hearing Problems N Hospitalizations N Learning Disorder N Artificial Joints N Thyroid Problems N GI Problems N Acne N ADD/ADHD N Eating Disorder N Anemia N Constipation N Mental Illness N Diabetes N Ovarian Cancer N Bedwetting N Hepatitis/Liver Disease N Tuberculosis N Eczema N Abuse/Domestic Violence N Diverticulitis N Asthma N Trauma/Violence N Substance Abuse [...] conjugate PCV 13 5 completed Not Available [facility] 07/28/2022 23:04:32 COVID-19 vaccine, vector-nr, rS-Ad26, PF, 0.5 mL 1 completed Angie Sanchez null, [employer] 05/03/2024 16:05:03 Tdap 2 completed YAZMIN LUCAS null, [employer] 10/19/2022 15:23:42 zoster recombinant 4 completed Margoth Frazier null, [employer] 04/07/2024 10:42:02 Tdap 4 completed Negrita Zavala, FIELD SUPERINTENDENT [address] [place] [address], [address], [facility] [employer] 05/03/2024 16:30:11 Influenza, split virus, quadrivalent, PF 2 completed Angie [place] null, [employer] 05/03/2024 16:05:03 Influenza, split virus, quadrivalent, PF 5 completed Angie Daniel null, [employer] 05/03/2024 16:05:03 Pneumococcal conjugate PCV20, polysaccharide [id number] conjugate, adjuvant, PF 4 completed Not Available [facility] 09/27/2025 08:22:01 Past Encounters Encounter ID Performer Location Encounter Start Date Encounter Closed Date Diagnosis/Indication Diagnosis SNOMED-CT Code Diagnosis ICD10 Code Diagnosis IMO Codes Diagnosis [id number] [facility] [address] [place] [address] 09/27/2025 08:03:34 09/27/2025 09:24:38 Diabetes mellitus 45710058 E11.9 00200 Low back pain 761660999 M54.50 640305 Chronic ob structive pulmonary disease 42938176 J44.9 Allergic rhinitis 889367 04 J30.9 Vitamin D deficiency 347 03069 E55.9 Type 2 daniel betes mellitus without complication 729467993 E11.9 Benign pro static hyperplasia 555516477 N40.0 Insomnia c o-occurrent and due to medical condition 6210667030 9105 G47.01 Overweight in adulthood with body mass index of 25 or more but less than 30 355363240 Z68.26 466010 Health Concerns Section Related Observation LastModified by Organization Detai ls LastModified Time None Recorded Concern Status LastModified by Organization Details LastModified Time None Recorded Payers Encounter Date Sequence Insurance Name Policy Number Policy Harris Covered Member ID Harris Member ID Guarantor Name 09/27/2025 2 MEDICAID-[facility] CHOICES - FFS/TRADITIO NAL Gavin Jimenez [id number] Gavin Jimenez 09/27/2025 1 [employer] (MEDICARE REPLACEMENT/ ADVANTAGE - PPO) Gavin Jimenez [id number] Gavin Jimenez Notes Date Note Type Note Provider Name and Address Organization Details Recorded Time 09/27/2025 text/html pt here today for medication [...] advised pt to rest x3 days. Lali Domingo, ANABELLA [address] [facility], [place], [address], [facility] [employer] 09/27/2025 18:47:52
[2025-10-10 08:55] VITALS: BP 164/97; PULSE 79; RESP 16
[2025-10-10] MEDS: SODIUM CHLORIDE 0.9% 10ML SYR (RAD ONLY) 10 ML IV ×2 (09:08)
[2025-10-10] MEDS: ISOTOPE MYOVIEW (PER STUDY) 1 DOSE IV (09:08)
--- NOTE | 2025-10-10 10:15 | CA_ITS ---
APPROVED REPORT EXAM: Comprehensive 2D, Doppler, and color-flow Echocardiogram Sack Department Supervisor: Essence Dorado, RCS, RVS Ht: 5 ft 11 in Wt: 220lbs BSA: 2.20 BP: 134/89 mmHg Indications: SOB, Smoker, CP, +family Hx-CAD, HTN, HLD 2D Dimensions IVSd 1.06 cm M: 0.6-1.2 LVEF (Visual) 47.80 % PWd 1.11 cm M: 0.6 - 1.2 LA Volume 85.70 mL LVDd 5.43 cm M: 4.2 - 5.9 LA Volume Index 38.557615 mL/m2 (M/F) 16-34 LVDs 4.11 cm M: 2.5 - 4.0 Left Atrium 3.67 cm M: 3.0 - 4.0 M-Mode Dimensions RVDd 2.91 cm (0.9-2.6) LA Diam 4.35 cm (1.9-4.0) LVDd 5.64 cm (3.5-5.7) LVDs 4.63 cm (3.5-5.7) IVSd 1.12 cm (0.6-1.1) PWd 0.81 cm (0.6-1.1) EF (Teich) 41.80% EPSs 0.65 cm FS 20.90% EDV (Teich) 169.90 mL TAPSE 2.47 (<1.7) ESV (Teich) 98.80 mL LV Diastology E Decel Time 173 (160-240 msec) E/A Ratio 1.48 MED A' 9.90 cm/s LAT A' 8.60 cm/s Aortic Valve ROHAN Index 1.28 cm2/m2 AoV Peak Lio. 126.0 (50-130 cm/s) AO Peak GR. 6.40 mmHg AO Mean GR. 3.20 (<5 mmHg) AO VTI 23.9 (18-25 cm) ROHAN (VTI) 2.87 (2.5-4.5 cm2) Mitral Valve MV A Velocity 70.0 (40-130 cm/s) E/A Ratio 1.48 Pulmonary Valve PV Peak Velocity 80.0 (50-150 cm/s) Tricuspid Valve TR P. Velocity 263.00 cm/s RAP Estimate 10.00 mmHg RVSP 37.70 mmHg Left Ventricle The left ventricle is normal size. Left ventricular systolic function is normal. The left ventricular ejection fraction is within the normal range. There is normal left ventricular wall thickness. There is normal LV segmental wall motion. The left ventricular diastolic function is normal. LVEF is 55% Right Ventricle The right ventricle is normal size. The right ventricular systolic function is normal. Atria The left atrium size is normal. The right atrium size is normal. There is no color Doppler evidence of interatrial shunt. Aortic Valve The aortic valve opens well. There is no hemodynamically significant aortic valvular stenosis. No aortic regurgitation is present. Mitral Valve The mitral valve is normal in structure. No evidence of mitral valve stenosis. Mild mitral regurgitation is present. Tricuspid Valve The tricuspid valve leaflets are thin and pliable. Mild tricuspid regurgitation. RVSP is 25-30 mmHg. Pulmonic Valve The pulmonary valve is grossly normal in structure. Trace pulmonic valve regurgitation is present. Great Vessels The aortic root is normal in size. IVC is normal in size and collapses >50% with inspiration. Pericardium There is no pericardial effusion. Other Information Study Quality: Fair Conclusion Normal biventricular systolic function. Mild MR, mild TR. Electronically signed by : Regine Pastrana MD 10/14/2025 23:21:05
== END 2025-10-10 23:59 | disposition home or self-care (01) ==
LOC: RAD 08:00
PROVIDERS: PCP Nurse Practitioner; Visit Provider Nurse Practitioner Family
DX: I08.1 Rheumatic disorders of both mitral and tricuspid valves (principal); I49.1 Atrial premature depolarization; I49.3 Ventricular premature depolarization; I25.118 Atherosclerotic heart disease of native coronary artery with other forms of angina pectoris; F17.200 Nicotine dependence, unspecified, uncomplicated; I10 Essential (primary) hypertension; E78.00 Pure hypercholesterolemia, unspecified; R94.39 Abnormal result of other cardiovascular function study; Z82.49 Family history of ischemic heart disease and other diseases of the circulatory system
CPT/HCPCS: 78452; 93017; 93018; 93306; A9502; J2785

== ENCOUNTER 2025-10-29 08:43 | Day surgery (SDC) | payer MEDICARE, MEDICAID, SELFPAY ==
[2025-10-29] VITALS (12 sets, daily range): BP systolic 120–197; BP diastolic 73–120; PULSE 92–120; RESP 16–20; O2SAT 94–96; BMI 27.4
--- NOTE | 2025-10-29 07:31 | IR_ITS ---
APPROVED REPORT Patient Location: Outpatient PROCEDURES Left heart catheterization Left ventriculogram Selective coronary angiogram Drug-eluting stent deployment to a large posterior descending artery off the dominant right coronary artery INDICATION Coronary artery disease, Angina pectoris, Abnormal Myoview, Inferior ischemia, 4 antianginals with recalcitrant angina pectoris Informed consent was obtained prior to the procedure. COMPLICATIONS none Estimated Blood Loss: less than 10ml TECHNIQUE One percent lidocaine used to anesthetize the right anterior aspect of the wrist. The right radial artery was accessed via the Seldinger technique. A 6 Vincentian sheath was placed in the right radial artery. 2.5 mg of Verapamil, 800 mcg of nitroglycerin, 1mg Lidocaine and 5000 U Heparin were given through the arterial sheath. The JL3 catheter was also used to perform left heart catheterization, left ventriculogram and selective coronary angiogram. At the end of the diagnostic angiogram therapeutic heparin was administered giving a therapeutic ACT and the guide catheter was placed in the right coronary artery followed by Choice PT extra-support wire placed distally. A guide liner was advanced into the mid to distal portion. A 2.75 x 15 mm [place] frontier stent was placed into the proximal and mid dominant right coronary artery/posterior descending artery and deployed at 16 michael. JEROME II flow was present at the beginning of the procedure with JEROME-3 flow at the end of the procedure. After achieving excellent angiograph results the apparatus was removed the sheath was removed and hemostasis was achieved using TR banding patient was transferred to the postop boarding in stable condition ANGIOGRAPHIC RESULTS The left main artery Normal The left anterior descending artery Has proximal 20 and 30% stenosis followed by a large mid vessel aneurysm. The remaining LAD is widely patent. A large diagonal artery has a stent in its proximal segment which is widely patent with minimal in-stent restenosis and excellent proximal distal transition The circumflex artery Is nondominant it still large and gives rise to a medium sized ramus intermedius which has a proximal 40 to 50% stenosis. The first obtuse marginal artery has mild to moderate vascular ectasia with 40% mid vessel and distal stenoses. The true circumflex artery has mild diffuse vascular ectasia with 20% distal stenosis The right coronary artery Massively large dominant with severe ostial proximal mid and distal vascular ectasia. There is no stenosis throughout the vessel which appears greater than 20%. Posterior descending artery is a large vessel and has a mid vessel concentric 80 to 90% stenosis. 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 Dual antiplatelet therapy 2. Patient needs higher dose of beta-blockers. He is currently tachycardic and hypertensive. 3. Check TFTs if not already obtained 4. Recommend absolute avoidance of all tobacco products 5. LDL less than 55 to be achieved with high intensity statin 6. Cardiac rehabilitation Electronically signed by : Abraham Wilkins MD 10/29/2025 12:54:35
[2025-10-29 09:15] LABS: Hematocrit 44.1 % (42.0-52.0); Hemoglobin 15.7 g/dL (14.1-18.0); Immature Granulocytes % 0.3 %; Mean Corpuscular HGB Conc 35.6 g/dL (31.8-35.4); Mean Corpuscular Hemoglobin 33.2 pg (27.0-31.2); Mean Corpuscular Volume 93.2 fl (80-94); Nucleated Red Blood Cells % 0 %; Platelet Count 276 K/mm3 (142-424); Red Blood Count 4.73 M/mm3 (4.60-6.20); Red Cell Distribution Width-SD 42.2 fL; White Blood Count 11.8 K/mm3 (4.8-10.8)
[2025-10-29 09:21] LABS: Chloride 102 mmol/L (98-107)
[2025-10-29 09:22] LABS: Potassium 3.7 mmoL/L (3.5-5.1); Sodium 141 mmol/L (136-145)
[2025-10-29 09:24] LABS: Blood Urea Nitrogen 22 mg/dl (9-20); Creatinine Clearance Estimated 97 mL/min (50-200); Creatinine,Serum 0.90 mg/dl (0.66-1.25); Estimated Glomerular Filt Rate 86 ml/min (>60); GFR (African American) 103 ML/MIN (>60)
[2025-10-29 09:25] LABS: Anion Gap 15.7 mEq/L (5-15); Calcium 9.2 mg/dl (8.4-10.2); Carbon Dioxide 27 mmol/L (22.0-30.0); Glucose 109 mg/dl (74-100)
[2025-10-29] MEDS: HEPARIN 1,000 UNITS/500ML NS (CATH LAB) 3000 UNIT IV (12:35)
[2025-10-29] MEDS: LIDOCAINE 1% 10ML MDV 10 ML IJ (12:35)
[2025-10-29] MEDS: VERAPAMIL 2.5MG/ML 2ML VIAL 2.5 MG IV (12:35)
[2025-10-29] MEDS: NITROGLYCERIN 800MCG/8ML SYR (CATH LAB) 800 MCG IA (12:36)
[2025-10-29] MEDS: HEPARIN 1,000 UNITS/ML 10ML VIAL (CATH LAB) 5000 UNIT IV (12:36)
[2025-10-29] MEDS: MIDAZOLAM HCL 1MG/ML 5ML VIAL 1 MG IV (12:37)
[2025-10-29] MEDS: 0.9 % SODIUM CHLORIDE 500 ML 25 ML IV (12:37)
[2025-10-29] MEDS: FENTANYL 100MCG/2ML VIAL 50 MCG IV (12:37)
[2025-10-29 13:54] LABS: Free T4 (Free Thyroxine) 1.77 ng/dl (0.78-2.19); T4 (Thyroxine) 13.1 ug/dl (5.53-11.0)
[2025-10-29 14:07] LABS: Thyroid Stimulating Hormone 1.62 uIU/mL (0.465-4.68)
[2025-10-29] MEDS: IOPAMIDOL-370 (76%);100ML BOTTLE 120 ML IV (17:18)
[2025-10-29 17:19] LABS: CATHL Activated Clotting Time 331 SEC (74-125)
--- NOTE | 2025-11-05 14:33 | PC.NURSE ---
11/05/2025 pt is not inesterted in rehab at this time
== END 2025-10-29 15:59 | disposition home or self-care (01) ==
PROVIDERS: PCP Nurse Practitioner; Visit Provider Internal Medicine
PROC: 4A023N7 Measurement of Cardiac Sampling and Pressure, Left Heart, Percutaneous Approach (ICD-10-PCS; CPT 93452; principal; 2025-10-29 11:00)
DX: I25.118 Atherosclerotic heart disease of native coronary artery with other forms of angina pectoris (principal); I25.41 Coronary artery aneurysm; I11.9 Hypertensive heart disease without heart failure; R06.09 Other forms of dyspnea; E78.2 Mixed hyperlipidemia; R94.39 Abnormal result of other cardiovascular function study; R00.0 Tachycardia, unspecified; R94.31 Abnormal electrocardiogram [ECG] [EKG]; F17.210 Nicotine dependence, cigarettes, uncomplicated; Z79.02 Long term (current) use of antithrombotics/antiplatelets; Z79.82 Long term (current) use of aspirin; Z79.51 Long term (current) use of inhaled steroids; Z79.899 Other long term (current) drug therapy; Z95.5 Presence of coronary angioplasty implant and graft
CPT/HCPCS: 80048; 84436; 84439; 84443; 85025; 85347; 92928; 93458; 99152; C1725; C1769; C1874; C1887; C9600; J1200; J1644; J2003; J3010; J7040; Q9967

== ENCOUNTER 2025-11-08 11:55 | Emergency (ER) | payer MEDICARE, MEDICAID, SELFPAY ==
[2025-11-08] VITALS (10 sets, daily range): BP systolic 121–151; BP diastolic 81–97; PULSE 65–77; RESP 12–21; TEMP 36.7; O2SAT 95–98; BMI 26.4
--- NOTE | 2025-11-08 11:57 | ECG_ITS ---
APPROVED REPORT Exam: Resting ECG HR:74 bpm ECG Measurements Heart Rate 74 AXES MA 168 P 78 QRSd 78 QRS 71 QT 380 T 80 QTc 407 Conclusion SINUS RHYTHM WITH OCCASIONAL VENTRICULAR PREMATURE COMPLEXES BORDERLINE ECG UNCONFIRMED REPORT Electronically signed by : JEROMY SCHOFIELD, 11/10/2025 01:20:24
--- NOTE | 2025-11-08 11:59 | HMH.EDGENADL ---
Discharge Plan Disposition Patient Disposition: Home, Self-Care Condition: Good Prescriptions Prescriptions: No Action albuterol sulfate 0.63 mg/3 mL solution for nebulization 0.63 mg INHALATION QID PRN (Reason: soa) albuterol sulfate [Ventolin HFA] 90 mcg/actuation HFA aerosol inhaler 1 puff INHALATION Q4-6H PRN (Reason: soa) tamsulosin [Flomax] 0.4 mg capsule,extended release 24hr 0.4 mg PO DAILY ergocalciferol (vitamin D2) [Vitamin D2] 1,250 mcg (50,000 unit) capsule 1,250 mcg PO WEEKLY Patient Comments: TAKE 1 CAPSULE BY MOUTH every WEEK FOR 90 DAYS Trelegy Ellipta 100-62.5-25 mcg blister with device 1 ea inhalation DAILY amlodipine 5 mg tablet See Rx Instructions .ROUTE .COMPLEX Qty: 90 2RF Dose Instruction: TAKE 1 TABLET BY MOUTH ONCE DAILY Rx Instructions: TAKE 1 TABLET BY MOUTH ONCE DAILY clopidogrel 75 mg tablet See Rx Instructions .ROUTE .COMPLEX Qty: 30 3RF Dose Instruction: TAKE 1 TABLET BY MOUTH ONCE DAILY Rx Instructions: TAKE 1 TABLET BY MOUTH ONCE DAILY isosorbide mononitrate 120 mg tablet extended release 24 hr 120 mg PO DAILY Qty: 90 3RF losartan 100 mg tablet See Rx Instructions .ROUTE .COMPLEX Qty: 90 2RF Dose Instruction: TAKE 1 TABLET BY MOUTH ONCE DAILY Rx Instructions: TAKE 1 TABLET BY MOUTH ONCE DAILY ranolazine 1,000 mg tablet extended release 12 hr See Rx Instructions .ROUTE .COMPLEX Qty: 180 3RF Dose Instruction: TAKE 1 TABLET BY MOUTH TWICE DAILY Rx Instructions: TAKE 1 TABLET BY MOUTH TWICE DAILY trazodone 50 mg tablet 50 mg PO QHS aspirin [Adult Low Dose Aspirin] 81 mg tablet,delayed release (DR/EC) 81 mg PO DAILY Qty: 30 5RF Breztri Aerosphere 160-9-4.8 mcg/actuation HFA aerosol inhaler See Rx Instructions .ROUTE .COMPLEX Rx Instructions: Doctor's Order atorvastatin 80 mg tablet See Rx Instructions .ROUTE .COMPLEX Qty: 90 2RF Dose Instruction: TAKE 1 TABLET BY MOUTH ONCE DAILY Rx Instructions: TAKE 1 TABLET BY MOUTH ONCE DAILY nitroglycerin 0.4 mg tablet, sublingual 0.4 mg SUBLINGUAL Q5-15M PRN (Reason: chest pain) Qty: 25 1RF Rx Instructions: until response; do not exceed 3 doses per episode nadolol 40 mg Tablet 40 mg PO DAILY Qty: 30 3RF Referrals Follow up/Referrals: Abraham Wilkins MD [Staff Physician, Cardiology] - See instructions Lali Domingo APRN [Primary Care Provider, Medical] - See instructions Activity Restrictions/Add. Instructions Additional Instructions/Restrictions: You were evaluated on an emergency basis. It is very important that you follow-up with your primary care provider and any specialist who we discussed within the next 2 days in order to better assess your health more comprehensively. For example, incidental findings on imaging or laboratory results that were performed today may be discovered, which do not require immediate medical care, but may impact your health in the future. If your symptoms worsen or persist, please return to the emergency department immediately for reassessment. Take all medications as prescribed. In queue for allowing me to participate in your health care, and I hope you feel better soon. Clinical Impressions Clinical Impression: Chest pain Qualifiers: Chest pain type: unspecified Qualified Code(s): R07.9 - Chest pain, unspecified Instructions Patient Instructions: DI for Chest Pain Print Language Print Language: Sammarinese Discharge ED Provider: Heidy Long General Adult HPI <Agueda Geraldo - Last Filed: 11/08/25 16:17> General Chief complaint: Chest Pain Stated complaint: Chest pain Time Seen by Provider: 11/08/25 11:59 History of Present Illness HPI narrative: 60-year-old male presents emergency department with complaints of chest pain that started approximately 1 hour prior to arrival. Patient reports he has taken his Plavix as prescribed this morning. He has not had any nitro or aspirin prior to arrival. He reports that he had cardiac stents placed at this facility on October 29. He states that he has not smoked cigarettes since that time but does smoke marijuana daily. Denies alcohol use. He reports his pain has improved since it first started. He states the pain is reproducible with palpation of the left anterior chest. He denies shortness of breath. Related Data Home Medications ?Medication ?Instructions ?Recorded ?Confirmed albuterol sulfate 0.63 mg/3 mL 0.63 mg inhalation QID PRN soa 05/17/18 10/29/25 solution for nebulization albuterol sulfate 90 mcg/actuation 1 puff inhalation Q4-6H PRN soa 05/17/18 10/29/25 aerosol inhaler (Ventolin HFA) tamsulosin 0.4 mg capsule (Flomax) 0.4 mg PO DAILY bladder 05/17/18 10/29/25 trazodone 50 mg tablet 50 mg PO QHS 08/20/20 10/29/25 budesonide 160 mcg-glycopyr 9 See Rx Instructions .Route .COMPLEX 01/17/25 10/29/25 mcg-formot 4.8 mcg/actuation HFA inhaler (Breztri Aerosphere) ergocalciferol (vitamin D2) 1,250 1,250 mcg PO WEEKLY 09/20/25 10/29/25 mcg (50,000 unit) capsule (Vitamin D2) fluticasone fur. 100 mcg-umeclid 1 ea inhalation DAILY 10/24/25 10/29/25 62.5 mcg-vilant 25 mcg inhalat.powder (Trelegy Ellipta) Previous Rx's ?Medication ?Instructions ?Recorded aspirin 81 mg tablet,delayed 81 mg PO DAILY heart health #30 03/02/22 release (Adult Low Dose Aspirin) tabs atorvastatin 80 mg tablet See Rx Instructions .Route 01/24/25 .COMPLEX #90 tabs nitroglycerin 0.4 mg sublingual 0.4 mg sublingual Q5-15M PRN chest 01/24/25 tablet pain #25 tabs amlodipine 5 mg tablet See Rx Instructions .Route 10/24/25 .COMPLEX #90 tabs clopidogrel 75 mg tablet See Rx Instructions .Route 10/24/25 .COMPLEX #30 tabs isosorbide mononitrate 120 mg 120 mg PO DAILY #90 tabs 10/24/25 tablet,extended release 24 hr losartan 100 mg tablet See Rx Instructions .Route 10/24/25 .COMPLEX #90 tabs ranolazine 1,000 mg See Rx Instructions .Route 10/24/25 tablet,extended release,12 hr .COMPLEX #180 tabs nadolol 40 mg tablet 40 mg PO DAILY #30 tabs 10/29/25 Allergies Allergy/AdvReac Type Severity Reaction Status Date / Time No Known Allergies Allergy Verified 10/24/25 11:52 PFS <Agueda Chow - Last Filed: 11/08/25 16:17> [facility] Disclaimer: The information contained in this section may have been updated after the patient was seen, as this information can be updated by other users. Medical History HTN (hypertension) CAD (coronary artery disease) HLD (hyperlipidemia) Angina pectoris Left arm pain Sinus tachycardia Atypical chest pain Tobacco abuse HHD (hypertensive heart disease) Social History Smoking Status: Former smoker tobacco type: cigarettes packs per day: 1 second hand exposure: No alcohol intake: never substance use type: denies use current occupational status: other Travel in the last 8 weeks?: Inside the [place] household members: spouse housing: house current occupational exposures/hazards: No caffeine: No Have you lived/traveled outside [place] in past 30 days?: No Contact w/someone who lives/traveled outside [place] past 30 days?: No Exposure to someone with infectious disease in past 14 days?: No Do you have a fever (greater than 100.4 F or 38 C)?: No Have you tested positive for COVID-19?: No Exposed to someone with COVID-19 in past 14 days?: No Do you have a sore throat?: No Do you have a cough?: No Do you have any weakness?: No Do you have any diarrhea?: No Are you experiencing any unusual bleeding?: No Do you have any muscle aches/pain?: No Do you have any abdominal pain?: No Are you experiencing loss of taste or smell?: No Other Medical History Have you received the Flu Vaccine for this season: No Have you received the Pneumonia Vaccine: No <Agueda Chow - Last Filed: 11/08/25 16:17> ROS Obtained: Yes other Cardiovascular Cardiovascular: Reports chest pain Physical Exam <Agueda Chow - Last Filed: 11/08/25 16:17> Narrative Physical exam: General: Awake, aware, in no acute distress HEENT: Normocephalic, no evidence of trauma CV: RRR, no murmurs, rubs, or gallops. 2+ pulses on palpation of extremities. Pulm: Patient with diminished breath sounds bilaterally ABD: Nontender, no swelling, guarding, or rebound tenderness Psych, appropriate mood and affect Musculoskeletal: Patient does report tenderness on palpation of left anterior chest wall. Pain is reproducible. No ecchymosis, erythema noted to the area. General General appearance: alert Respiratory Respiratory exam: Present normal lung sounds bilaterally Cardiovascular Cardiovascular exam: Present regular rate Neurological Exam Neurological exam: Present alert Medical Decision Making <Agueda Chow - Last Filed: 11/08/25 16:17> Medical Records Screening: Per USPSTF and CDC recommendations, given the prevalence of disease in our region, it is our hospital?s policy to screen for HIV and viral Hepatitis for all patients aged 18 and over and those with ongoing risk factors. Jesús Inquiry Pt receiving controlled substance: No Vital Signs: 11/08/25 12:00 11/08/25 12:01 11/08/25 12:30 Temperature 98.0 F Temperature Source Oral Pulse Rate 76 75 Pulse Rate [Right] 77 Respiratory Rate 13 18 13 Blood Pressure 151/91 H 121/93 H Blood Pressure [Right Arm] 151/91 H Blood Pressure Mean [Right Arm] 111 Blood Pressure Source Blood Pressure Source [Right Arm] Automatic Cuff Blood Pressure Position [Right Arm] Sitting 02 Sat by Pulse Oximetry 97 95 96 Oxygen Delivery Method Room Air Room Air Room Air 11/08/25 13:00 11/08/25 13:30 11/08/25 14:00 Temperature Temperature Source Pulse Rate 71 65 66 Pulse Rate [Right] Respiratory Rate 12 14 15 Blood Pressure 136/87 126/87 127/81 Blood Pressure [Right Arm] Blood Pressure Mean [Right Arm] Blood Pressure Source Blood Pressure Source [Right Arm] Blood Pressure Position [Right Arm] 02 Sat by Pulse Oximetry 97 97 95 Oxygen Delivery Method Room Air Room Air Room Air 11/08/25 14:30 11/08/25 15:00 11/08/25 15:30 Temperature Temperature Source Pulse Rate 66 75 68 Pulse Rate [Right] Respiratory Rate 18 21 14 Blood Pressure 133/92 H 144/97 H 141/84 H Blood Pressure [Right Arm] Blood Pressure Mean [Right Arm] Blood Pressure Source Blood Pressure Source [Right Arm] Blood Pressure Position [Right Arm] 02 Sat by Pulse Oximetry 96 98 97 Oxygen Delivery Method Room Air Room Air 11/08/25 16:32 Temperature 98.0 F Temperature Source Oral Pulse Rate 68 Pulse Rate [Right] Respiratory Rate 21 Blood Pressure 141/84 H Blood Pressure [Right Arm] Blood Pressure Mean [Right Arm] Blood Pressure Source Automatic Cuff Blood Pressure Source [Right Arm] Blood Pressure Position [Right Arm] 02 Sat by Pulse Oximetry Oxygen Delivery Method Room Air Lab Data Lab Results 11/08/25 12:00: WBC 13.9 H 11/08/25 12:00: WBC 13.7 H, RBC 4.69 11/08/25 12:00: RBC 4.65, Hgb 15.4 11/08/25 12:00: Hgb 15.2, Hct 43.7 11/08/25 12:00: Hct 43.6, MCV 93.2 11/08/25 12:00: MCV 93.8, MCH 32.8 H 11/08/25 12:00: MCH 32.7 H, MCHC 35.2 11/08/25 12:00: MCHC 34.9, RDW 12.0 11/08/25 12:00: RDW 12.1, Plt Count 351 11/08/25 12:00: Plt Count 387, MPV 9.1 11/08/25 12:00: MPV 9.5, Neut % (Auto) 67.1 11/08/25 12:00: Neut % (Auto) 66.6, Lymph % (Auto) 20.7 11/08/25 12:00: Lymph % (Auto) 20.2, [place] % (Auto) 9.5 H 11/08/25 12:00: [place] % (Auto) 10.3 H, Eos % (Auto) 1.7 11/08/25 12:00: Eos % (Auto) 1.9, Baso % (Auto) 0.6 11/08/25 12:00: Baso % (Auto) 0.7, Neut # (Auto) 9.3 H 11/08/25 12:00: Neut # (Auto) 9.2 H, Lymph # (Auto) 2.9 11/08/25 12:00: Lymph # (Auto) 2.8, [place] # (Auto) 1.3 H 11/08/25 12:00: [place] # (Auto) 1.4 H, Eos # (Auto) 0.2 11/08/25 12:00: Eos # (Auto) 0.3, Baso # (Auto) 0.1 11/08/25 12:00: Baso # (Auto) 0.1, Sodium 136, Potassium 3.7, Chloride 108 H, Carbon Dioxide 26, Anion Gap 5.7, BUN 24 H, Creatinine 1.00, Estimated Creat Clear 93, Estimated GFR 76, Est GFR ( Amer) 92, Glucose 124 H, Calcium 9.2, Magnesium 2.1, Total Bilirubin 1.0, AST 22, ALT 24, Alkaline Phosphatase 80, Troponin I 0.04 H, NT-Pro-B Natriuret Pep 151 H, Total Protein 7.4, Albumin 4.5, Globulin 2.9, Albumin/Globulin Ratio 1.6 11/08/25 14:35: Sodium 140, Potassium 4.0, Chloride 108 H, Carbon Dioxide 26, Anion Gap 10.0, BUN 24 H, Creatinine 0.90, Estimated Creat Clear 93, Estimated GFR 86, Est GFR ( Amer) 103, Glucose 106 H, Calcium 8.9, Troponin I 0.04 H 11/08/25 12:00 11/08/25 14:35 Orders (Tests/Meds): ED MEDICATIONS Discontinued Medications Generic Name Dose Route Start Last Admin Trade Name Freq PRN Reason Stop Dose Admin Albuterol/Ipratropium 3 ml 11/08/25 12:22 11/08/25 12:28 Ipratropium/Albuterol 3 Ml Neb IH 11/08/25 12:23 3 ml ONCE ONE Administration Aspirin 162 mg 11/08/25 12:00 11/08/25 12:15 Aspirin 81mg Chewable Tablet PO 11/08/25 12:01 162 mg ONCE ONE Administration Ketorolac Tromethamine 15 mg 11/08/25 14:41 11/08/25 14:52 Ketorolac 15mg/Ml Vial IV 11/08/25 14:42 15 mg ONCE ONE Administration ORDERS Category Date Time Status XR chest portable Stat Exams 11/08/25 12:00 Completed BNP [NT Pro Brain Natriuretic Pep.] Stat Lab 11/08/25 12:00 Completed Basic Metabolic Panel Routine Lab 11/08/25 14:35 Completed CBC [Complete Blood Count Auto Diff] Routine Lab 11/08/25 12:00 Completed CBC w/Auto Diff [Complete Blood Count Auto Diff] Stat Lab 11/08/25 12:00 Completed CMP [Comprehensive Metabolic Panel] Stat Lab 11/08/25 12:00 Completed Magnesium Stat Lab 11/08/25 12:00 Completed Troponin I Q3H Lab 11/08/25 12:00 Completed Troponin I Q3H Lab 11/08/25 14:35 Completed Medical Decision Narrative: Initial impression of presenting illness: 60-year-old male presents emergency department complaints of chest pain that started approximate 1 hour prior to arrival. He reports that he has taken his Plavix as prescribed and has not had aspirin or nitro this morning. He reports that he had cardiac stents placed at this facility on October 29. He reports that he has not smoked cigarettes since that time but does smoke marijuana daily. He reports since the pain started it has improved. He reports that the pain is now on palpation of his anterior left chest wall. He denies fever shortness of breath. He reports that he does have chronic cough. Differential diagnosis includes but is not limited to: ACS, heart failure, pneumonia, viral illness, pleurisy, costochondritis, COPD Patient arrives hemodynamically stable, afebrile, without respiratory distress with vital signs interpreted by myself. Initial physical exam reveals tenderness to palpation of left anterior chest wall. Patient has diminished breath sounds bilaterally. While in the room patient does have cough that sounds productive however he is not coughing anything up. Rest of exam is unremarkable Initial diagnostic plan: ACS workup including aspirin Results from initial plan were reviewed and interpreted by myself, pertinent positives include: White blood cell count 13.9, patient's initial troponin was 0.04 with a 3-hour repeat of 0.04. He was at 151. Rest of laboratory studies as well as chest x-ray were nonactionable. Interventions in the ED: Patient was given aspirin per ACS protocol as well as Toradol for pain control. He was also given DuoNeb to help with his diminished breath sounds Patient was made aware of the results and the findings, upon reevaluation patient has remained stable throughout stay, symptoms have resolved. Upon reevaluation patient states he is feeling much better. He currently denies pain. His vital signs remained stable. Consultation/discussion with other physicians: Spoke with the bathing suit maker Dr. Wilkins regarding patient's presenting complaint and workup findings. He wanted to make sure that patient had a prescription for nitro which patient informed me he does have at home. He states that he can follow-up with patient Wednesday morning at 11 AM and did not feel there was any need for admission or further interventions at this time. Disposition: Reviewed finding today's workup with patient as well as Dr. Wilkins's recommendations. Advised him that we will discharge him home instructed him to continue with all previously prescribed medications. Advised him of his follow-up appointment Wednesday at 11 AM. Patient was agreeable to plan of care. Patient made aware of findings and had a detailed discussion with symptomatic care and return precautions, patient voiced understanding. <Heidy Long MD - Last Filed: 11/10/25 16:04> Vital Signs: 11/08/25 12:00 11/08/25 12:01 11/08/25 12:30 Temperature 98.0 F Temperature Source Oral Pulse Rate 76 75 Pulse Rate [Right] 77 Respiratory Rate 13 18 13 Blood Pressure 151/91 H 121/93 H Blood Pressure [Right Arm] 151/91 H Blood Pressure Mean [Right Arm] 111 Blood Pressure Source Blood Pressure Source [Right Arm] Automatic Cuff Blood Pressure Position [Right Arm] Sitting 02 Sat by Pulse Oximetry 97 95 96 Oxygen Delivery Method Room Air Room Air Room Air 11/08/25 13:00 11/08/25 13:30 11/08/25 14:00 Temperature Temperature Source Pulse Rate 71 65 66 Pulse Rate [Right] Respiratory Rate 12 14 15 Blood Pressure 136/87 126/87 127/81 Blood Pressure [Right Arm] Blood Pressure Mean [Right Arm] Blood Pressure Source Blood Pressure Source [Right Arm] Blood Pressure Position [Right Arm] 02 Sat by Pulse Oximetry 97 97 95 Oxygen Delivery Method Room Air Room Air Room Air 11/08/25 14:30 11/08/25 15:00 11/08/25 15:30 Temperature Temperature Source Pulse Rate 66 75 68 Pulse Rate [Right] Respiratory Rate 18 21 14 Blood Pressure 133/92 H 144/97 H 141/84 H Blood Pressure [Right Arm] Blood Pressure Mean [Right Arm] Blood Pressure Source Blood Pressure Source [Right Arm] Blood Pressure Position [Right Arm] 02 Sat by Pulse Oximetry 96 98 97 Oxygen Delivery Method Room Air Room Air 11/08/25 16:32 Temperature 98.0 F Temperature Source Oral Pulse Rate 68 Pulse Rate [Right] Respiratory Rate 21 Blood Pressure 141/84 H Blood Pressure [Right Arm] Blood Pressure Mean [Right Arm] Blood Pressure Source Automatic Cuff Blood Pressure Source [Right Arm] Blood Pressure Position [Right Arm] 02 Sat by Pulse Oximetry Oxygen Delivery Method Room Air Lab Data Lab Results 11/08/25 12:00: WBC 13.9 H 11/08/25 12:00: WBC 13.7 H, RBC 4.69 11/08/25 12:00: RBC 4.65, Hgb 15.4 11/08/25 12:00: Hgb 15.2, Hct 43.7 11/08/25 12:00: Hct 43.6, MCV 93.2 11/08/25 12:00: MCV 93.8, MCH 32.8 H 11/08/25 12:00: MCH 32.7 H, MCHC 35.2 11/08/25 12:00: MCHC 34.9, RDW 12.0 11/08/25 12:00: RDW 12.1, Plt Count 351 11/08/25 12:00: Plt Count 387, MPV 9.1 11/08/25 12:00: MPV 9.5, Neut % (Auto) 67.1 11/08/25 12:00: Neut % (Auto) 66.6, Lymph % (Auto) 20.7 11/08/25 12:00: Lymph % (Auto) 20.2, [place] % (Auto) 9.5 H 11/08/25 12:00: [place] % (Auto) 10.3 H, Eos % (Auto) 1.7 11/08/25 12:00: Eos % (Auto) 1.9, Baso % (Auto) 0.6 11/08/25 12:00: Baso % (Auto) 0.7, Neut # (Auto) 9.3 H 11/08/25 12:00: Neut # (Auto) 9.2 H, Lymph # (Auto) 2.9 11/08/25 12:00: Lymph # (Auto) 2.8, [place] # (Auto) 1.3 H 11/08/25 12:00: [place] # (Auto) 1.4 H, Eos # (Auto) 0.2 11/08/25 12:00: Eos # (Auto) 0.3, Baso # (Auto) 0.1 11/08/25 12:00: Baso # (Auto) 0.1, Sodium 136, Potassium 3.7, Chloride 108 H, Carbon Dioxide 26, Anion Gap 5.7, BUN 24 H, Creatinine 1.00, Estimated Creat Clear 93, Estimated GFR 76, Est GFR ( Amer) 92, Glucose 124 H, Calcium 9.2, Magnesium 2.1, Total Bilirubin 1.0, AST 22, ALT 24, Alkaline Phosphatase 80, Troponin I 0.04 H, NT-Pro-B Natriuret Pep 151 H, Total Protein 7.4, Albumin 4.5, Globulin 2.9, Albumin/Globulin Ratio 1.6 11/08/25 14:35: Sodium 140, Potassium 4.0, Chloride 108 H, Carbon Dioxide 26, Anion Gap 10.0, BUN 24 H, Creatinine 0.90, Estimated Creat Clear 93, Estimated GFR 86, Est GFR ( Amer) 103, Glucose 106 H, Calcium 8.9, Troponin I 0.04 H Orders (Tests/Meds): ED MEDICATIONS Discontinued Medications Generic Name Dose Route Start Last Admin Trade Name Freq PRN Reason Stop Dose Admin Albuterol/Ipratropium 3 ml 11/08/25 12:22 11/08/25 12:28 Ipratropium/Albuterol 3 Ml Neb IH 11/08/25 12:23 3 ml ONCE ONE Administration Aspirin 162 mg 11/08/25 12:00 11/08/25 12:15 Aspirin 81mg Chewable Tablet PO 11/08/25 12:01 162 mg ONCE ONE Administration Ketorolac Tromethamine 15 mg 11/08/25 14:41 11/08/25 14:52 Ketorolac 15mg/Ml Vial IV 11/08/25 14:42 15 mg ONCE ONE Administration ORDERS Category Date Time Status XR chest portable Stat Exams 11/08/25 12:00 Completed BNP [NT Pro Brain Natriuretic Pep.] Stat Lab 11/08/25 12:00 Completed Basic Metabolic Panel Routine Lab 11/08/25 14:35 Completed CBC [Complete Blood Count Auto Diff] Routine Lab 11/08/25 12:00 Completed CBC w/Auto Diff [Complete Blood Count Auto Diff] Stat Lab 11/08/25 12:00 Completed CMP [Comprehensive Metabolic Panel] Stat Lab 11/08/25 12:00 Completed Magnesium Stat Lab 11/08/25 12:00 Completed Troponin I Q3H Lab 11/08/25 12:00 Completed Troponin I Q3H Lab 11/08/25 14:35 Completed Medical Decision Narrative: Initial impression of presenting illness: 60-year-old male presents emergency department complaints of chest pain that started approximate 1 hour prior to arrival. He reports that he has taken his Plavix as prescribed and has not had aspirin or nitro this morning. He reports that he had cardiac stents placed at this facility on October 29. He reports that he has not smoked cigarettes since that time but does smoke marijuana daily. He reports since the pain started it has improved. He reports that the pain is now on palpation of his anterior left chest wall. He denies fever shortness of breath. He reports that he does have chronic cough. Differential diagnosis includes but is not limited to: ACS, heart failure, pneumonia, viral illness, pleurisy, costochondritis, COPD Patient arrives hemodynamically stable, afebrile, without respiratory distress with vital signs interpreted by myself. Initial physical exam reveals tenderness to palpation of left anterior chest wall. Patient has diminished breath sounds bilaterally. While in the room patient does have cough that sounds productive however he is not coughing anything up. Rest of exam is unremarkable Initial diagnostic plan: ACS workup including aspirin Results from initial plan were reviewed and interpreted by myself, pertinent positives include: White blood cell count 13.9, patient's initial troponin was 0.04 with a 3-hour repeat of 0.04. He was at 151. Rest of laboratory studies as well as chest x-ray were nonactionable. Interventions in the ED: Patient was given aspirin per ACS protocol as well as Toradol for pain control. He was also given DuoNeb to help with his diminished breath sounds Patient was made aware of the results and the findings, upon reevaluation patient has remained stable throughout stay, symptoms have resolved. Upon reevaluation patient states he is feeling much better. He currently denies pain. His vital signs remained stable. Consultation/discussion with other physicians: Spoke with the bathing suit maker Dr. Wilkins regarding patient's presenting complaint and workup findings. He wanted to make sure that patient had a prescription for nitro which patient informed me he does have at home. He states that he can follow-up with patient Wednesday morning at 11 AM and did not feel there was any need for admission or further interventions at this time. Disposition: Reviewed finding today's workup with patient as well as Dr. Wilkins's recommendations. Advised him that we will discharge him home instructed him to continue with all previously prescribed medications. Advised him of his follow-up appointment Wednesday at 11 AM. Patient was agreeable to plan of care. Patient made aware of findings and had a detailed discussion with symptomatic care and return precautions, patient voiced understanding. I was consulted by the KAMILLE, and we discussed the complexity of problems being addressed. I approved the treatment and management plan for this patient's care in the emergency department, thus performing a substantial portion of the medical decision making. Heidy Long MD Critical Care <Agueda Chow - Last Filed: 11/08/25 16:17> Critical Care Time Critical Care Time: No
--- NOTE | 2025-11-08 12:00 | XR_ITS ---
FINAL REPORT CLINICAL HISTORY: Nonspecific chest pain FINDINGS: A portable view of the chest is obtained. There is no prior exam for comparison. Cardiac and mediastinal silhouettes are normal. There is underlying emphysema. The lungs are otherwise clear. There is no pleural effusion or pneumothorax. IMPRESSION: No acute process on this portable exam. Reviewed, Interpreted and Dictated by Mishel Clemente MD Transcribed by Christine Mederos Authenticated and [facility]
[2025-11-08 12:10] LABS: Hematocrit 43.7 % (42.0-52.0); Hemoglobin 15.4 g/dL (14.1-18.0); Immature Granulocytes % 0.4 %; Mean Corpuscular HGB Conc 35.2 g/dL (31.8-35.4); Mean Corpuscular Hemoglobin 32.8 pg (27.0-31.2); Mean Corpuscular Volume 93.2 fl (80-94); Nucleated Red Blood Cells % 0 %; Platelet Count 351 K/mm3 (142-424); Red Blood Count 4.69 M/mm3 (4.60-6.20); Red Cell Distribution Width-SD 41.1 fL; White Blood Count 13.9 K/mm3 (4.8-10.8)
[2025-11-08] MEDS: ASPIRIN 81MG CHEWABLE TABLET 162 MG PO (12:15)
[2025-11-08 12:16] LABS: Albumin Level 4.5 g/dl (3.5-5.0); Chloride 108 mmol/L (98-107); Sodium 136 mmol/L (136-145)
[2025-11-08 12:17] LABS: Potassium 3.7 mmoL/L (3.5-5.1)
[2025-11-08 12:19] LABS: Alanine Aminotransferase 24 U/L (12-78); Albumin/Globulin Ratio 1.6 (1.1-1.8); Alkaline Phosphatase 80 U/L (38-126); Anion Gap 5.7 mEq/L (5-15); Aspartate Amino Transferase 22 U/L (17-59); Bilirubin,Total 1.0 mg/dl (0.2-1.3); Blood Urea Nitrogen 24 mg/dl (9-20); Carbon Dioxide 26 mmol/L (22.0-30.0); Creatinine Clearance Estimated 93 mL/min (50-200); Creatinine,Serum 1.00 mg/dl (0.66-1.25); Estimated Glomerular Filt Rate 76 ml/min (>60); GFR (African American) 92 ML/MIN (>60); Globulin 2.9 g/dL (1.3-3.2); Total Protein,Serum 7.4 g/dl (6.3-8.2)
[2025-11-08 12:20] LABS: Calcium 9.2 mg/dl (8.4-10.2); Glucose 124 mg/dl (74-100); Magnesium 2.1 mg/dl (1.6-2.3)
[2025-11-08] MEDS: IPRATROPIUM/ALBUTEROL 3 ML NEB IH (12:28)
[2025-11-08 12:29] LABS: NT Pro Brain Natriuretic Pep. 151 pg/mL (0-125)
--- OUTSIDE RECORDS SUMMARY | 2025-11-08 12:42 | XMS_ITS | Encounter Summary ---
Author Organization Healthcare Address [address] [place] [address] Care Team Providers Care Vocational Psychologist Name Role Phone Lali Domingo CALIBRATION TECHNICIAN Primary Care Provider [phone] Encounter Details Date Type Department Care Team (Late st Contact Info) Description 11/07/2025 Telephone [facility] [address] [place] [address] Jessica Oakes APRN [address] [place] [address] Social History Tobacco Use Types Packs/Day Years Used Date Smoking Tobacco: Every Day Cigarettes 0.8 49 Started: 1978 Passive Smoke Exposure: Never Smokeless [...] on file documented as of this encounter Miscellaneous Notes * Telephone Encounter - Angie López - 11/07/2025 12:13 PM EST Clinical Concern/Question Reason for Call: pt wants to r/s missed appt from nov but Dt doesn't allow me to r/s; requested a call back Best contact number: [phone] (mobile) Optimal time of day to reach caller: ANYTIME Additional comments/information from caller: None Note: Please do not reply to this message. Follow-up communication and further actions as a result of this message need to be communicated with the patient directly, if the patient is not active onMyChart. If the patient is active on MyChart, they will receive notification of the communication/outcome via MyChart. documented in this encounter Plan of Treatment Upcoming Encounters Date Type Department Care Team (Late st Contact Info) Description 11/28/2025 11:10 AM EST Office Visit [facility] [address] [place] [address] Jessica Oakes APRN [address] [place] [address] documented as of this encounter Visit Diagnoses Not on filedocumented in this encounter Additional Health Concerns Assessment Noted Time A fall risk assessment has been complete d for the patient 09/27/2024 3:50 PM EST A Body Mass Index follow-up plan has been documented for the patient 09/28/2024 1:26 PM EST documented as of this encounter Care Teams Vocational Psychologist Relationship Specialty Start Date End Date Lali Domingo APRN [address] [place] [address] PCP - General 10/06/21 documented as of this encounter
--- OUTSIDE RECORDS SUMMARY | 2025-11-08 12:42 | XMS_ITS | Encounter Summary ---
Author Organization [facility] Address [address] [place] [address] Care Team Providers Care Finance Insurance Manager Name Role Phone Lali Domingo APRN Primary Care Provider [phone] Reason for Visit * Reason Comments Med Refill Encounter Details Date Type Department Care Team (Late st Contact Info) Description 05/21/2022 Refill [facility] Medicine Specialties [address] [place] [address] Brock Abel MD [address] [facility] [address] [address] [place] [address] Asthma, unspecified asthma severity, unspecified whether complicated, unspecified whether persistent; Chronic obstructive pulmonary disease, unspecified COPD type (CMS/HCC); Bronchiectasis without acute exacerbation (CMS/[facility]) Social History Tobacco Use Types Packs/Day Years [...] Description 11/28/2025 11:10 AM EST Office Visit [facility] Medicine [facility]ties [address] [place] [address] Jessica Oakes APRN [address] [facility] [address] [place] [address] documented as of this encounter Visit Diagnoses Diagnosis Asthma, unspecified asthma severity, unspecified whether complicated, unspecified whether persistent Chronic obstructive pulmonary disease, unspecified COPD type (CMS/HCC) Bronchiectasis without acute exacerbation ([facility]) Bronchiectasis without acute exacerbation documented in this encounter Additional Health Concerns Assessment Noted Time A fall risk assessment has been complete d for the patient 05/29/2021 9:53 AM EDT documented as of this encounter Care Teams Finance Insurance Manager Relationship Specialty Start Date End Date Lali Domingo APRN [address] [place] [address] PCP - General 10/06/21 documented as of this encounter
--- OUTSIDE RECORDS SUMMARY | 2025-11-08 12:42 | XMS_ITS | Encounter Summary ---
Author Organization Healthcare Address [address] [place] [address] Care Team Providers Care Mail Officer Name Role Phone Lali Domingo APRN Primary Care Provider Reason for Visit * Reason Onset Date Comments Med Refill 11/07/2025 Encounter Details Date Type Department Care Team (Late st Contact Info) Description 11/07/2025 Refill [facility] [address] [place] [address] Jessica Oakes APRN [address] [place] [address] Asthma, unspecified asthma severity, unspecified whether complicated, unspecified whether persistent; Chronic obstructive pulmonary disease, unspecified COPD type (CMS/[facility]) Social History Tobacco Use Types Packs/Day Years [...] Description 11/28/2025 11:10 AM EST [facility] [address] [place] [address] Jessica Oakes APRN [address] [place] [address] documented as of this encounter Visit Diagnoses Diagnosis Asthma, unspecified asthma severity, unspecified whether complicated, unspecified whether persistent Chronic obstructive pulmonary disease, unspecified COPD type (CMS/[facility]) documented in this encounter Additional Health Concerns Assessment Noted Time A fall risk assessment has been complete d for the patient 09/27/2024 3:50 PM EST A Body Mass Index follow-up plan has been documented for the patient 09/28/2024 1:26 PM EST documented as of this encounter Care Teams Mail Officer Relationship Specialty Start Date End Date Lali Domingo APRN [address] [place] [address] PCP - General 10/06/21 documented as of this encounter
--- OUTSIDE RECORDS SUMMARY | 2025-11-08 12:42 | XMS_ITS | Clinical Summary ---
Author Organization [facility] Address [address] [place] [address] Care Team Providers Care Disc Sander Name Role Phone Lali Domingo APRN Primary Care Provider [phone] Allergies No known active allergies Medications amLODIPine [...] day with meals. 05/05/20 24 Active albuterol 108 (90 Base) MCG/ACT [...] by mouth every 12 (twelve) hours. 05/05/20 24 Active cefdinir (Omnicef) 300 MG capsule TAKE [...] mouth after use. 10.7 g 11 03/15/20 25 Active albuterol (Proventil) (2.5 MG/3ML) 0.083% nebulizer solutionIndication s:Asthma, unspecified asthma severity, unspecified whether complicated, unspecified whether persistent,Chronic obstructive pulmonary disease, unspecified COPD type (CMS/HCC) Take 3 mL by nebulization every 4 hours as needed for wheezing or shortness of breath. 180 mL 3 11/08/20 25 Active albuterol (2.5 MG/3ML) 0.083% nebulizer solutionIndication s:Asthma, unspecified asthma severity, unspecified whether complicated, unspecified whether persistent,Chronic obstructive pulmonary disease, unspecified COPD type (CMS/HCC) Take 3 mL (2.5 mg) by nebulization every 4 (four) hours if needed for wheezing or shortness of breath. 180 mL 3 05/18/20 24 025 Discontin ued(Reord er) Active Problems No known active problems Encounters Date Type Department Care Team Description 11/07/2025 Telephone [facility] Medicine Specialties [address] [place] [address] Jessica Oakes APRN 11/07/2025 Refill [facility] Medicine Specialties [address] [place] [address] Jessica Oakes, GROCERY SACKER Asthma, unspecified asthma severity, unspecified whether complicated, unspecified whether persistent; Chronic obstructive pulmonary disease, unspecified COPD type (CMS/HCC) from Last 3 Months Immunizations Immunization Administration Dates Next Due Influenza, [...] Description 11/28/2025 11:10 AM EST [facility] Visit [facility] [address] [place] [address] Jessica Oakes S, GROCERY SACKER [address] [place] [address] Health Maintenance Due Date Last Done Comments [facility]-HIV Screening 1963 [facility]-Hepatitis C Screening 1963 [facility]-Medicare Annual Wellness (AWV) 1965 [facility]-/Child/Adol SDOH Screenings 1963 [facility]- SDOH Screenings 1981 [facility]-Adult SDOH Screenings 1981 CT Colonography 2008 Colonoscopy 2008 FIT-DNA 2008 FIT 2008 FOBT 2008 Sigmoidoscopy 2008 [facility]-Colorectal Cancer Screening 2008 [facility]-RSV Vaccine: 60+ Years or (1 - Risk 50-74 years 1-dose series) 2013 [facility]-Zoster Vaccines (2 of 2) 06/02/2024 04/07/2024 [id number] Vaccine (2 - season) 2025 02/25/2021 [facility]-Influenza Vaccine (#1) 07/23/202508/26, 09/03/2015, 09/03/2015 [facility]-Depression Screening 09/27/2025 09/27/2024, 1003/2022 [facility]-DTaP,Tdap,and Td Vaccines (3 - Td or Tdap) 05/03/2034 05/03/2024, 04/03/2022 [facility]-Pneumococcal Vaccine: 50+ Years Completed 05/12/2024, 09/03/2015, 04/08/2015 [facility]-Lung Cancer Screening Discontinued 2023, 08/17/2023, 06/10/2021 [facility]-Obesity Intervention Completed 024, 05/12/2024, 08/27/2023, Additional history exists HPV Vaccines (No Doses Required) Completed [facility]-HIB Vaccines Aged Out No longer e [...] Buck Crook MD on 09/27/2024 4:19 PM us Paula Velázquez APRN IMG CT PROCEDURES Final R esult from Last 3 Months or Most Recently Relevant to Health Maintenance Insurance [place] MEDICARE Care Teams Disc Sander Relationship Specialty Start Date End Date Lali Domingo APRN [address] [place] [address] PCP - General 10/06/21
--- OUTSIDE RECORDS SUMMARY | 2025-11-08 12:42 | XMS_ITS | Encounter Summary ---
Author Organization Healthcare Address [address] [place] [address] Care Team Providers Care Pastrycook'S Assistant Name Role Phone Lali Domingo RIG SUPERINTENDENT Primary Care Provider Encounter Details Date Type Department Care Team (Late st Contact Info) Description 08/04/2024 Orders Only External Location [address] [place] [address] Winston Bryant, DO [address] [place] [address] Social History Tobacco Use Types Packs/Day Years Used Date Smoking Tobacco: Every Day Cigarettes 0.3 49 Started: 1978 Passive Smoke Exposure: Never [...] Description 11/28/2025 11:10 AM EST Office Visit [facility] [address] [place] [address] Jessica Oakes APRN [address] [place] [address] documented as of this encounter Procedures Procedure Name Priority Date/Time Associated Diagnosis Comments CT OUTSIDE IMAGES 08/04/2024 2:23 PM EDT documented in this encounter Results * CT OUTSIDE IMAGES (08/04/2024 2:23 PM EDT) Anatomical Region Laterality Modality Computed Tomogra phy 08/04/2024 2:23 PM EDT Winston TAO CT PROCEDURES Final Result documented in this encounter Visit Diagnoses Not on filedocumented in this encounter Additional Health Concerns Assessment Noted Time A fall risk assessment has been complete d for the patient 05/12/2024 10:39 AM EDT A Body Mass Index follow-up plan has been documented for the patient 05/12/2024 11:35 AM EDT documented as of this encounter Care Teams Pastrycook'S Assistant Relationship Specialty Start Date End Date Lali Domingo APRN [address] [place] [address] PCP - General 10/06/21 documented as of this encounter
[2025-11-08 13:02] LABS: Troponin I 0.04 ng/ml (0.00-0.034)
[2025-11-08] MEDS: KETOROLAC 15MG/ML VIAL 15 MG IV (14:52)
--- NOTE | 2025-11-08 15:07 | PC.NURSE ---
Rounded on patient; family at BS. Pt reports no needs at this time. Aware that we are waiting on 2nd cardiac enzymes to result. Call zelaya within reach
[2025-11-08 15:09] LABS: Troponin I 0.04 ng/ml (0.00-0.034)
[2025-11-08 16:46] LABS: Hematocrit 43.6 % (42.0-52.0); Hemoglobin 15.2 g/dL (14.1-18.0); Immature Granulocytes % 0.3 %; Mean Corpuscular HGB Conc 34.9 g/dL (31.8-35.4); Mean Corpuscular Hemoglobin 32.7 pg (27.0-31.2); Mean Corpuscular Volume 93.8 fl (80-94); Nucleated Red Blood Cells % 0 %; Platelet Count 387 K/mm3 (142-424); Red Blood Count 4.65 M/mm3 (4.60-6.20); Red Cell Distribution Width-SD 41.6 fL; White Blood Count 13.7 K/mm3 (4.8-10.8)
[2025-11-08 16:51] LABS: Anion Gap 10.0 mEq/L (5-15); Blood Urea Nitrogen 24 mg/dl (9-20); Calcium 8.9 mg/dl (8.4-10.2); Carbon Dioxide 26 mmol/L (22.0-30.0); Chloride 108 mmol/L (98-107); Creatinine Clearance Estimated 93 mL/min (50-200); Creatinine,Serum 0.90 mg/dl (0.66-1.25); Estimated Glomerular Filt Rate 86 ml/min (>60); GFR (African American) 103 ML/MIN (>60); Glucose 106 mg/dl (74-100); Potassium 4.0 mmoL/L (3.5-5.1); Sodium 140 mmol/L (136-145)
== END 2025-11-08 16:30 | disposition home or self-care (01) ==
PROVIDERS: Internal Medicine; Nurse Practitioner Family; Emergency Provider Student in an Organized Health Care Education/Training Program; PCP Nurse Practitioner
DX: R07.9 Chest pain, unspecified (principal); I11.9 Hypertensive heart disease without heart failure; E78.5 Hyperlipidemia, unspecified; Z86.79 Personal history of other diseases of the circulatory system; Z95.5 Presence of coronary angioplasty implant and graft; Z87.891 Personal history of nicotine dependence
CPT/HCPCS: 71045; 80048; 80053; 83735; 83880; 84484; 85025; 93005; 96374; 99285; J1885

== ENCOUNTER 2025-11-17 12:24 | Observation (INO) | payer MEDICARE, MEDICAID, SELFPAY ==
[2025-11-17] VITALS (12 sets, daily range): BP systolic 102–153; BP diastolic 50–92; PULSE 72–81; RESP 16–24; TEMP 36.6–37.1; O2SAT 90–100; BMI 26.6; BMI 25.2
--- NOTE | 2025-11-17 12:27 | ECG_ITS ---
APPROVED REPORT Exam: Resting ECG HR:75 bpm ECG Measurements Heart Rate 75 AXES OK 160 P 78 QRSd 81 QRS 69 QT 390 T 67 QTc 419 Conclusion SINUS RHYTHM WITH OCCASIONAL VENTRICULAR PREMATURE COMPLEXES SEPTAL MYOCARDIAL INFARCTION , PROBABLY OLD [40+ ms Q WAVE IN V1/V2] ABNORMAL ECG Electronically signed by : JACINDA MASON, 11/18/2025 07:17:37
--- NOTE | 2025-11-17 12:29 | [facility]H.EDCP ---
Discharge Plan Disposition Patient Disposition: Admitted Prescriptions Prescriptions: No Action albuterol sulfate 0.63 mg/3 mL solution for nebulization 0.63 mg INHALATION QID PRN (Reason: soa) albuterol sulfate [Ventolin HFA] 90 mcg/actuation HFA aerosol inhaler 1 puff INHALATION Q4-6H PRN (Reason: soa) tamsulosin [Flomax] 0.4 mg capsule,extended release 24hr 0.4 mg PO DAILY ergocalciferol (vitamin D2) [Vitamin D2] 1,250 mcg (50,000 unit) capsule 1,250 mcg PO WEEKLY Patient Comments: TAKE 1 CAPSULE BY MOUTH every WEEK FOR 90 DAYS Trelegy Ellipta 100-62.5-25 mcg blister with device 1 ea inhalation DAILY amlodipine 5 mg tablet See Rx Instructions .ROUTE .COMPLEX Qty: 90 2RF Dose Instruction: TAKE 1 TABLET BY MOUTH ONCE DAILY Rx Instructions: TAKE 1 TABLET BY MOUTH ONCE DAILY clopidogrel 75 mg tablet See Rx Instructions .ROUTE .COMPLEX Qty: 30 3RF Dose Instruction: TAKE 1 TABLET BY MOUTH ONCE DAILY Rx Instructions: TAKE 1 TABLET BY MOUTH ONCE DAILY isosorbide mononitrate 120 mg tablet extended release 24 hr 120 mg PO DAILY Qty: 90 3RF losartan 100 mg tablet See Rx Instructions .ROUTE .COMPLEX Qty: 90 2RF Dose Instruction: TAKE 1 TABLET BY MOUTH ONCE DAILY Rx Instructions: TAKE 1 TABLET BY MOUTH ONCE DAILY ranolazine 1,000 mg tablet extended release 12 hr See Rx Instructions .ROUTE .COMPLEX Qty: 180 3RF Dose Instruction: TAKE 1 TABLET BY MOUTH TWICE DAILY Rx Instructions: TAKE 1 TABLET BY MOUTH TWICE DAILY trazodone 50 mg tablet 50 mg PO QHS aspirin [Adult Low Dose Aspirin] 81 mg tablet,delayed release (DR/EC) 81 mg PO DAILY Qty: 30 5RF Breztri Aerosphere 160-9-4.8 mcg/actuation HFA aerosol inhaler See Rx Instructions .ROUTE .COMPLEX Rx Instructions: Doctor's Order atorvastatin 80 mg tablet See Rx Instructions .ROUTE .COMPLEX Qty: 90 2RF Dose Instruction: TAKE 1 TABLET BY MOUTH ONCE DAILY Rx Instructions: TAKE 1 TABLET BY MOUTH ONCE DAILY nitroglycerin 0.4 mg tablet, sublingual 0.4 mg SUBLINGUAL Q5-15M PRN (Reason: chest pain) Qty: 25 1RF Rx Instructions: until response; do not exceed 3 doses per episode nadolol 40 mg Tablet 40 mg PO DAILY Qty: 30 3RF Referrals Follow up/Referrals: Lali Domingo APRN [Primary Care Provider, Medical] - See instructions Clinical Impressions Clinical Impression: Acute exacerbation of chronic obstructive pulmonary disease, Pneumonia Print Language Print Language: Faroese Discharge ED Provider: Rodrick Galarza HPI General Chief Complaint: Shortness of Breath/Dyspnea Stated Complaint: SOB Time Seen by Provider: 11/17/25 12:25 Mode of Arrival: Wheelchair Source of Information: Patient Description of Symptoms (Recalled from ER Triage Doc. by RN): Reports SOA for 4-5days. States that he has recently had 3 stents placed in his heart at the beginning of this month. History of Present Illness HPI narrative: Patient is 60-year-old male with past medical history of COPD on control therapy not on oxygen at home who presents to the emergency department for evaluation of shortness of breath. Onset was acute over the last 4 to 5 days has gotten progressively worse with associated cough. No chest pain currently. No other acute complaints at this time. Please note that above description of symptoms, in this electronic medical record under categorization of recalled from ER triage doctor by RN are reflective of an initial nursing assessment, however, is not reflective of my full history and physical exam that was personally taken and clarified. Consequentially, this preceding description of symptoms, which may include the patient's categorized chief complaint in the EMR, do not reflect my personal clinical impression, and the ultimate description of history of present illness and patient stated complaints should be deferred to this section of the note. Unless stated otherwise or congruent with this section of the note, additional signs, symptoms, or incongruence should be interpreted as inaccurate with my clinical impression. Related Data Home Medications ?Medication ?Instructions ?Recorded ?Confirmed albuterol sulfate 0.63 mg/3 mL 0.63 mg inhalation QID PRN soa 05/17/18 10/29/25 solution for nebulization albuterol sulfate 90 mcg/actuation 1 puff inhalation Q4-6H PRN soa 05/17/18 10/29/25 aerosol inhaler (Ventolin HFA) tamsulosin 0.4 mg capsule (Flomax) 0.4 mg PO DAILY bladder 05/17/18 10/29/25 trazodone 50 mg tablet 50 mg PO QHS 08/20/20 10/29/25 budesonide 160 mcg-glycopyr 9 See Rx Instructions .Route .COMPLEX 01/17/25 10/29/25 mcg-formot 4.8 mcg/actuation HFA inhaler (Breztri Aerosphere) ergocalciferol (vitamin D2) 1,250 1,250 mcg PO WEEKLY 09/20/25 10/29/25 mcg (50,000 unit) capsule (Vitamin D2) fluticasone fur. 100 mcg-umeclid 1 ea inhalation DAILY 10/24/25 10/29/25 62.5 mcg-vilant 25 mcg inhalat.powder (Trelegy Ellipta) Previous Rx's ?Medication ?Instructions ?Recorded aspirin 81 mg tablet,delayed 81 mg PO DAILY heart health #30 03/02/22 release (Adult Low Dose Aspirin) tabs atorvastatin 80 mg tablet See Rx Instructions .Route 01/24/25 .COMPLEX #90 tabs nitroglycerin 0.4 mg sublingual 0.4 mg sublingual Q5-15M PRN chest 01/24/25 tablet pain #25 tabs amlodipine 5 mg tablet See Rx Instructions .Route 10/24/25 .COMPLEX #90 tabs clopidogrel 75 mg tablet See Rx Instructions .Route 10/24/25 .COMPLEX #30 tabs isosorbide mononitrate 120 mg 120 mg PO DAILY #90 tabs 10/24/25 tablet,extended release 24 hr losartan 100 mg tablet See Rx Instructions .Route 10/24/25 .COMPLEX #90 tabs ranolazine 1,000 mg See Rx Instructions .Route 10/24/25 tablet,extended release,12 hr .COMPLEX #180 tabs nadolol 40 mg tablet 40 mg PO DAILY #30 tabs 10/29/25 Allergies Allergy/AdvReac Type Severity Reaction Status Date / Time No Known Allergies Allergy Verified 10/24/25 11:52 [facility] Disclaimer: The information contained in this section may have been updated after the patient was seen, as this information can be updated by other users. Medical History HTN (hypertension) CAD (coronary artery disease) HLD (hyperlipidemia) Angina pectoris Left arm pain Sinus tachycardia Atypical chest pain Tobacco abuse HHD (hypertensive heart disease) Social History Smoking Status: Former smoker tobacco type: cigarettes packs per day: 1 second hand exposure: No alcohol intake: never substance use type: denies use current occupational status: other Travel in the last 8 weeks?: Inside the [place] household members: spouse housing: house current occupational exposures/hazards: No caffeine: No Have you lived/traveled outside [place] in past 30 days?: No Contact w/someone who lives/traveled outside US past 30 days?: No Exposure to someone with infectious disease in past 14 days?: No Do you have a fever (greater than 100.4 F or 38 C)?: No Have you tested positive for COVID-19?: No Exposed to someone with COVID-19 in past 14 days?: No Do you have a sore throat?: No Do you have a cough?: No Do you have any weakness?: No Do you have any diarrhea?: No Are you experiencing any unusual bleeding?: No Do you have any muscle aches/pain?: Yes Do you have any abdominal pain?: No Are you experiencing loss of taste or smell?: No Other Medical History Have you received the Flu Vaccine for this season: No Have you received the Pneumonia Vaccine: No ROS Obtained: Yes Systems reviewed as appropriate & no additional complaints except as documented Physical Exam General General appearance: alert and in distress Head Head exam: atraumatic and normocephalic Eye Eye exam: Present PERRL and EOMI ENT ENT exam: Present mucous membranes moist Neck Neck exam: Present normal inspection Chest Chest inspection: Present normal inspection and symmetric chest wall rise Respiratory Respiratory exam: Present respiratory distress, wheezes (Scant wheezing with borderline silent chest), accessory muscle use and prolonged expiratory phase; Absent normal lung sounds bilaterally Cardiovascular Cardiovascular exam: Present regular rate and normal rhythm Abdominal Exam Abdominal exam: Present soft; Absent tenderness Extremities Exam Extremities exam: Present normal inspection Neurological Exam Neurological exam: Present alert Psychiatric Psychiatric exam: Present normal affect Skin Skin exam: Present warm and dry HEART Score HEART Score HEART Score assessment performed?: Yes History (anamnesis): Slightly suspicious ECG: Non-specific disturbance Age: 45-65 years Risk factors: Atherosclerosis history Troponin: </= normal limit HEART Score: 4 Critical Care Critical Care Time Critical Care Time: Yes Attestation: On 11/17/25, the high probability of a clinically significant, sudden or life threatening deterioration of the following system(s) required my full and direct attention, intervention and personal management. The time I documented below is in addition to time spent performing reported procedures but includes the following listed in this critical care notation. Total Time Total Critical Care Time: 40 Medical Decision Making Jesús Inquiry Pt receiving controlled substance: No Vital Signs Vital Signs: 11/17/25 12:25 11/17/25 12:43 11/17/25 12:45 Temperature 97.9 F Temperature Source Oral Pulse Rate 77 75 Pulse Rate [Radial] 77 Respiratory Rate 18 Blood Pressure Blood Pressure [Right Arm] 153/92 H Blood Pressure Mean Blood Pressure Mean [Right Arm] 112 Blood Pressure Source [Right Arm] Automatic Cuff Blood Pressure Position [Right Arm] Sitting 02 Sat by Pulse Oximetry 91 L 94 L 93 L Oxygen Delivery Method Room Air 11/17/25 13:00 11/17/25 13:00 11/17/25 13:15 Temperature Temperature Source Pulse Rate 72 73 Pulse Rate [Radial] Respiratory Rate Blood Pressure 124/75 Blood Pressure [Right Arm] Blood Pressure Mean 92 Blood Pressure Mean [Right Arm] Blood Pressure Source [Right Arm] Blood Pressure Position [Right Arm] 02 Sat by Pulse Oximetry 100 100 Oxygen Delivery Method 11/17/25 13:30 11/17/25 13:30 Temperature Temperature Source Pulse Rate 78 Pulse Rate [Radial] Respiratory Rate Blood Pressure 122/75 Blood Pressure [Right Arm] Blood Pressure Mean 95 Blood Pressure Mean [Right Arm] Blood Pressure Source [Right Arm] Blood Pressure Position [Right Arm] 02 Sat by Pulse Oximetry 96 Oxygen Delivery Method Lab Data Labs: Lab Results 11/17/25 12:30: WBC 11.4 H, RBC 4.95, Hgb 16.0, Hct 46.8, MCV 94.5 H, MCH 32.3 H, MCHC 34.2, RDW 12.4, Plt Count 322, MPV 9.2, Neut % (Auto) 70.6, Lymph % (Auto) 14.9, Bay % (Auto) 12.0 H, Eos % (Auto) 1.4, Baso % (Auto) 0.7, Neut # (Auto) 8.0 H, Lymph # (Auto) 1.7, Bay # (Auto) 1.4 H, Eos # (Auto) 0.2, Baso # (Auto) 0.1, Sodium 140, Potassium 3.6, Chloride 99, Carbon Dioxide 31 H, Anion Gap 13.6, BUN 16, Creatinine 0.90, Estimated Creat Clear 88, Estimated GFR 86, Est GFR ( Amer) 103, Glucose 128 H, Calcium 9.8, Total Bilirubin 1.2, AST 21, ALT 23, Alkaline Phosphatase 88, Troponin I < 0.01, NT-Pro-B Natriuret Pep 257 H, Total Protein 8.3 H, Albumin 4.8, Globulin 3.5 H, Albumin/Globulin Ratio 1.4 11/17/25 13:08: VBG pH 7.41, VBG pCO2 42.1, VBG pO2 51.8 H, VBG HCO3 26.2, VBG Total CO2 27.5 H, VBG O2 Saturation 87.3 H, VBG Base Excess 1.6, VBG Lactic Acid 1.2 11/17/25 12:30 11/17/25 12:30 Response Orders (Tests/Meds): ED MEDICATIONS Discontinued Medications Generic Name Dose Route Start Last Admin Trade Name Sadia PRN Reason Stop Dose Admin Albuterol Sulfate 20 mg 11/17/25 13:30 Albuterol 0.083% 2.5 Mg/3 Ml Neb 11/17/25 13:31 ONCE ONE Albuterol/Ipratropium 9 ml 11/17/25 12:27 11/17/25 12:49 Ipratropium/Albuterol 3 Ml [facility] 11/17/25 12:28 9 ml ONCE ONE Administration Magnesium Sulfate 2 gm in 50 mls @ 50 mls/hr 11/17/25 12:27 11/17/25 12:49 Magnesium Sulfate 2gm/50ml Premix IV 11/17/25 13:26 50 mls/hr ONCE ONE Administration Azithromycin 500 mg/ Sodium 250 mls @ 250 mls/hr 11/17/25 12:28 11/17/25 13:08 Chloride IV 11/17/25 12:29 250 mls/hr ONCE ONE Administration Ceftriaxone Sodium 1 gm/ 50 mls @ 100 mls/hr 11/17/25 13:04 Sodium Chloride IV 11/17/25 13:33 ONCE ONE Methylprednisolone Sodium Succinate 125 mg 11/17/25 12:27 11/17/25 12:53 Methylprednisolone Sod Succ 125mg Vial IV 11/17/25 12:28 125 mg ONCE ONE Administration ORDERS Category Date Time Status CXR --portable [XR chest portable] Stat Exams 11/17/25 12:37 Taken BNP [NT Pro Brain Natriuretic Pep.] Stat Lab 11/17/25 12:30 Completed CBC w/Auto Diff [Complete Blood Count Auto Diff] Stat Lab 11/17/25 12:30 Completed CMP [Comprehensive Metabolic Panel] Stat Lab 11/17/25 12:30 Completed Rapid PCR Covid and Flu A/B Stat Lab 11/17/25 13:12 Received Trop I [Troponin I] Stat Lab 11/17/25 12:30 Completed Troponin I Q3H Lab 11/17/25 15:30 Ordered Troponin I Q3H Lab 11/17/25 18:30 Ordered Blood Culture Stat Micro 11/17/25 12:50 Received VBG [Venous Blood Gas] Stat RT 11/17/25 13:08 Completed ECG Data Tracing #1: ECG Narrative: Independently interpreted by me rate is 75, rhythm is regular, axis is normal, no ST elevation in anatomical contiguous leads, QTc 419. MDM Narrative Medical Decision Narrative: In summary patient is a 60-year-old male with past medical history described above who presents to the emergency department for evaluation of shortness of breath. Patient has borderline silent chest upon arrival but is saturating acceptable on room air. Patient is having a severe COPD exacerbation. Differential diagnosis includes atypical heart failure, pneumonia, among others. Workup in totality will be conducted with hematologic labs viral swab chest x-ray EKG troponin. Initial inventions include DuoNebs x 3 methylprednisolone magnesium sulfate azithromycin. Sepsis bolus fluids were considered but patient is euvolemic will be deferred. Initial workup reviewed by me hematologic labs are largely nonactionable there is leukocytosis but is not extremely high no transfusable anemia no KATHI or critical electrolyte abnormality remarkably well compensated acid-base status however patient's work of breathing is significant on repeat evaluation will have continuous albuterol administered at this time. Chest x-ray looks like to me developing right lower lobe pneumonia will add ceftriaxone. Case was discussed with hospital medicine regarding management they will admit the patient their service for continued evaluation at this time.
--- NOTE | 2025-11-17 12:37 | XR_ITS ---
PROCEDURE INFORMATION: Exam: XR Chest Exam date and time: 11/17/2025 12:46 PM Age: 60 years old Clinical indication: Cough and shortness of breath; Additional info: SOB cough TECHNIQUE: Imaging protocol: Radiologic exam of the chest. Views: 1 view. COMPARISON: CR XR CHEST PORTABLE 11/08/2025 12:06 PM FINDINGS: Lungs: Patchy opacities in the right lung base likely represent atelectasis or infection. Pleural spaces: Unremarkable. No pleural effusion. No pneumothorax. Heart/Mediastinum: Unremarkable. No cardiomegaly. Bones/joints: Unremarkable. IMPRESSION: Patchy opacities in the right lung base likely represent atelectasis or infection.
[2025-11-17 12:39] LABS: Hematocrit 46.8 % (42.0-52.0); Hemoglobin 16.0 g/dL (14.1-18.0); Immature Granulocytes % 0.4 %; Mean Corpuscular HGB Conc 34.2 g/dL (31.8-35.4); Mean Corpuscular Hemoglobin 32.3 pg (27.0-31.2); Mean Corpuscular Volume 94.5 fl (80-94); Nucleated Red Blood Cells % 0 %; Platelet Count 322 K/mm3 (142-424); Red Blood Count 4.95 M/mm3 (4.60-6.20); Red Cell Distribution Width-SD 42.9 fL; White Blood Count 11.4 K/mm3 (4.8-10.8)
--- OUTSIDE RECORDS SUMMARY | 2025-11-17 12:39 | XMS_ITS | Encounter Summary ---
Author Organization Healthcare Address [address] [place] [address] Care Team Providers Care Fur Mixer Name Role Phone Lali Domingo FACILITY MANAGER Primary Care Provider Encounter Details Date Type Department Care Team (Late st Contact Info) Description 11/07/2025 [facility]phone [facility] [address] [place] [address] Jessica Oakes APRN [address] [place] [address] Social History Tobacco Use Types [...] requested a call back Best contact number: [phone] (mobile) Optimal time of day to reach caller: ANYTIME Additional comments/information from caller: None Note: Please do not reply to this message. Follow-up communication and further actions as a result of this message need to be communicated with the patient directly, if the patient is not active onMyChart. If the patient is active on MyChart, they will receive notification of the communication/outcome via [employer]. documented in this encounter Plan of Treatment Upcoming Encounters Date Type Department Care Team (Late st Contact Info) Description 11/28/2025 11:10 AM EST Office Visit [facility] Medicine Specialties [address] [place] [address] Jessica Oakes APRN [address] [place] [address] documented as of this encounter Visit Diagnoses Not on filedocumented in this encounter Additional Health Concerns Assessment Noted Time A fall risk assessment has been complete d for the patient 09/27/2024 3:50 PM EST A Body Mass Index follow-up plan has been documented for the patient 09/28/2024 1:26 PM EST documented as of this encounter Care Teams Fur Mixer Relationship Specialty Start Date End Date Lali Domingo APRN [id number] PCP - General 10/06/21 documented as of this encounter
--- OUTSIDE RECORDS SUMMARY | 2025-11-17 12:39 | XMS_ITS | Encounter Summary ---
Author Organization [facility] Address [address] [place] [address] Care Team Providers Care Director Operations Name Role Phone Lali Domingo APRN Primary Care Provider [phone] Reason for Visit * Reason Comments Med Refill Encounter Details Date Type Department Care Team (Late st Contact Info) Description 05/21/2022 Refill [facility] Medicine Specialties [address] [place] [address] Brock Abel MD [address] [facility] [address] [place] [address] Asthma, unspecified asthma severity, unspecified whether complicated, unspecified whether persistent; Chronic obstructive pulmonary disease, unspecified COPD type (CMS/HCC); Bronchiectasis without acute exacerbation (CMS/[facility]) Social History Tobacco Use Types Packs/Day Years [...] Description 11/28/2025 11:10 AM EST Office Visit [facility] Medicine Specialties [address] [place] [address] Jessica Oakes APRN [address] [facility] [address] [place] [address] documented as of this encounter Visit Diagnoses Diagnosis Asthma, unspecified asthma severity, unspecified whether complicated, unspecified whether persistent Chronic obstructive pulmonary disease, unspecified COPD type (CMS/HCC) Bronchiectasis without acute exacerbation ([facility]) Bronchiectasis without acute exacerbation documented in this encounter Additional Health Concerns Assessment Noted Time A fall risk assessment has been complete d for the patient 05/29/2021 9:53 AM EDT documented as of this encounter Care Teams Director Operations Relationship Specialty Start Date End Date Lali Domingo APRN [id number] PCP - General 10/06/21 documented as of this encounter
--- OUTSIDE RECORDS SUMMARY | 2025-11-17 12:39 | XMS_ITS | Data Portability ---
Author Organization [facility] Address [address] [place] [address] Care Team Providers Care Prosthodontist/Educator Name Role Phone NICOLAS TAVARES Slope Tender GAVIN GONZALEZ Supervisor Hanging And Trimming WENDY BOYCE Neurosurgeon Assessment Encounter Date Assessment [...] expressed understanding. Follow up as noted below. [email or web address] Not available 09/27/2025 18:45:51 Plan of Treatment Reminders Order Date Submit Date Provider Last Modified By Organization Details Last Modified Time Details Appointments None recorded. Lab HbA1c (hemoglobin A1c), blood [address], [address], 17:18:15 microalbumi n/creatinin e, mass ratio, urine [address], [address], 5 17:18:15 CBC w/ auto diff 2024 025 [facility] [address] [place], [address], 5 10:08:30 CMP, serum or plasma 2024 025 [facility]), [address] [place], [address], 5 10:08:31 TSH + free T4, serum 2024 025 [facility]), [address] [place], [address], 5 10:08:30 cobalamin and folate panel, serum 2024 025 [facility]), [address] [place], [address], 5 10:08:33 vitamin D, 25-hydroxy, total, serum 2024 025 [facility]), [address] [place], [address], 5 10:08:36 PSA, total, serum or plasma 2024 025 [facility]), [address] [place], [address], 5 10:08:35 Hepatitis C IgG Ab, qual, serum 2024 025 [facility] [address] [place] [address], [address], 5 10:08:34 lipid panel, serum 2024 025 [facility]), [address] [place], [address], 5 10:08:32 HbA1c (hemoglobin A1c), blood 2024 025 [facility] [address] [place], [address], 5 10:08:34 HbA1c (hemoglobin A1c), blood [address], [address] [place] [address], [address], 5 11:47:50 lipid panel, serum 2023 024 [facility] [address] [place], [address], 4 08:18:36 CMP, serum or plasma 2023 024 [facility] [address] [place], [address], 4 14:07:06 CBC w/ auto diff 2023 024 [facility] [address] [place], [address], 4 14:07:07 TSH + free T4, serum 2023 024 [facility] [address] [place], [address], 4 08:18:35 vitamin D, 25-hydroxy, total, serum 2023 024 [facility] [address] [place], [address], 4 08:18:37 PSA, total, serum or plasma 2023 024 [facility] [address] [place], [address], 4 08:18:37 HbA1c (hemoglobin A1c), blood [address], [address] [place] [address], [address], 4 13:05:22 HbA1c (hemoglobin A1c), blood [address], [address], 4 18:38:51 microalbumi n/creatinin e, mass ratio, urine [address], [address] [place] [address], [address], 4 18:38:51 Referral vascular surgeon referral - DARIAN 2023 024 [email or web address] Lana Linton MD, [address], [place] [address], [place], [address], 4 10:51:30 Procedures diabetic foot screen (PROC) 2024 025 [email or web address] 1 Not available 5 09:45:36 diabetic foot screen (PROC) 2023 024 [email or web address] 1 Not available 4 13:31:37 Surgeries None recorded. Imaging XR, lumbar spine 2024 025 [facility], [address] [place] [address], [address], 5 15:07:50 Medication Orders cetirizine 10 mg tablet [address] [facility], [address] [place] [address], [address], 5 12:03:19 hydrocodone 5 mg-acetamin ophen 325 mg tablet [address] [facility], [address] [place] [address], [address], 05:01:47 ketorolac 60 mg/2 mL intramuscul ar solution [address], [address] [place] [address], [address], 18:46:18 Depo-Medrol 80 mg/mL suspension for injection [address], [address] [place] [address], [address], 18:46:18 albuterol sulfate HFA 90 mcg/actuati on aerosol inhaler [address] [facility], [address] [place] [address], [address], 17:35:14 Trelegy Ellipta 100 mcg-62.5 mcg-25 mcg powder for inhalation 2024 [facility], [address] [place] [address], [address], 17:35:13 trazodone 50 mg tablet [address] [facility], [address] [place] [address], [address], 10:57:48 ergocalcife rol (vitamin D2) 1,250 mcg (50,000 unit) capsule 2024 [facility], [address] [place] [address], [address], 17:35:12 Jardiance 25 mg tablet [address] [facility], [address] [place] [address], [address], 10:42:48 metformin 1,000 mg tablet [address] [facility], [address] [place] [address], [address], 10:42:49 tamsulosin 0.4 mg capsule [address] [facility], [address] [place] [address], [address], 10:42:49 cetirizine 10 mg tablet [address] [facility], [address] [place] [address], [address], 15:23:16 albuterol sulfate HFA 90 mcg/actuati on aerosol inhaler [address] [facility], [address] [place] [address], [address], 5 16:58:29 Trelegy Ellipta 100 mcg-62.5 mcg-25 mcg powder for inhalation [address] [facility], [address] [place] [address], [address], 14:28:32 tamsulosin 0.4 mg capsule [address] [facility], [address] [place] [address], [address], 5 14:28:31 trazodone 50 mg tablet [address] [facility], [address] [place] [address], [address], 5 14:28:29 Jardiance 25 mg tablet [address] [facility], [address] [place], [address], 5 14:28:30 metformin 1,000 mg tablet [address] [facility], [address] [place], [address], 5 14:28:28 cetirizine 10 mg tablet 2023 024 [facility], [address] [place], [address], 4 11:37:48 albuterol sulfate HFA 90 mcg/actuati on aerosol inhaler 2023 024 [facility], [address] [place], [address], 4 11:37:44 Trelegy Ellipta 100 mcg-62.5 mcg-25 mcg powder for inhalation [address] [facility], [address] [place], [address], 4 10:57:14 trazodone 50 mg tablet 2023 024 [facility], [address] [place], [address], 4 10:57:12 metformin 1,000 mg tablet 2023 024 [facility], [address] [place], [address], 4 10:57:14 Jardiance 25 mg tablet 2023 024 [facility], [address] [place], [address], 4 10:57:11 tamsulosin 0.4 mg capsule 2023 024 [facility], [facility] [place], [address], 4 10:57:13 metformin 1,000 mg tablet 2023 024 [facility], [address] [place], [address], 4 16:47:49 trazodone 50 mg tablet 2023 024 [facility], [facility] [place], [address], 4 16:47:51 tamsulosin 0.4 mg capsule 2023 024 [facility], [facility] [place], [address], 4 16:47:50 Bactrim DS 800 mg-160 mg tablet 2023 024 [email or web address], [facility] [place], [address], 10:39:56 Patient TargetsNo targets recorded. Patient Instructions Encounter Date Encounter Id Patient Instructions Last Modified By Organization Details Last Modified Time 05/05/2024 [id number] diabetes foot health: care instructions [email or web address] Not available 05/05/2024 18:38:51 06/05/2025 [id number] learning about healthy weight Not available 06/05/2025 11:47:50 09/27/2025 [id number] diabetes foot health: care instructions [email or web address] Not available 09/27/2025 17:18:15 Reason for Referral Vascular Surgeon Referral fo r Abdominal aortic aneurysm without rupture DARIAN Referring Physician: Lali Domingo, Family Medicine, Encounter Date: 08/04/2024 Results Created Date Observation Date Name Description Value Unit Range Abnormal Flag Note LastModifiedBy Organization Detail LastModifiedTime 05/05/20 24 05/05/2024 HbA1c (hemo globi n A1c), blood HbA1c 8.0 Not Available [address], [address], 05/05/2024 13:30:29 05/05/20 24 05/05/2024 micro album in/cr eatin ine, mass ratio , urine Microalbumin 80 Not Available [address], [address], 05/05/2024 13:30:48 05/05/20 24 05/05/2024 micro album in/cr eatin ine, mass ratio , urine Creatinine 300 Not Available [address], [address], 05/05/2024 13:30:48 05/05/20 24 05/05/2024 micro album in/cr eatin ine, mass ratio , urine Ratio 30-300 Not Available [address], [address], 05/05/2024 13:30:48 08/04/20 24 08/05/2024 TSH+F REE T4 TSH 2.670 uIU/m L 0.450- 4.500 normal Not Available [facility] ([facility]) [address] [facility], [place], [address], 08/05/2024 08:18:35 08/04/20 24 08/05/2024 TSH+F REE T4 T4,free(dire ct) 1.44 NG/dL 0.82-1 .77 normal Not Available [facility] ([facility]) [address] [facility], [place], [address], 08/05/2024 08:18:35 08/04/20 24 08/05/2024 CBC WITH DIFFE RENTI AL/PL ATELE T WBC 10.9 x10e3 /uL 3.4-10 .8 above high normal Not Available [facility] ([facility]) [address] [facility], [place], [address], 08/05/2024 08:18:35 08/04/20 24 08/05/2024 CBC WITH DIFFE RENTI AL/PL ATELE T RBC 5.14 x10e6 /uL 4.14-5 .80 normal Not Available [facility] ([facility]) [address] [facility], [place], [address], 08/05/2024 08:18:35 08/04/2008/05/2024 CBC WITH DIFFE RENTI AL/PL ATELE T hemoglobin 16.6 g/dL 13.0-1 7.7 normal Not Available [facility] ([facility]) [address] [place], [address], 08/05/2024 08:18:35 08/04/20 24 08/05/2024 CBC WITH DIFFE RENTI AL/PL ATELE T hematocrit 48.9 % 37.5-5 1.0 normal Not Available [facility] ([facility]) [address] [place], [address], 08/05/2024 08:18:35 08/04/2008/05/2024 CBC WITH DIFFE RENTI AL/PL ATELE T MCV 95 fL 79-97 normal Not Available [facility] ([facility]) [address] [place], [address], 08/05/2024 08:18:35 08/04/2008/05/2024 CBC WITH DIFFE RENTI AL/PL ATELE T MCH 32.3 pg 26.6-3 3.0 normal Not Available [facility] ([facility]) [address] [place], [address], 08/05/2024 08:18:35 08/04/20 24 08/05/2024 CBC WITH DIFFE RENTI AL/PL ATELE T MCHC 33.9 g/dL 31.5-3 5.7 normal Not Available [facility] ([facility]) [address] [facility], [place], [address], 08/05/2024 08:18:35 08/04/20 24 08/05/2024 CBC WITH DIFFE RENTI AL/PL ATELE T RDW 12.2 % 11.6-1 5.4 Not Available [facility] ([facility]) [address] [facility], [place], [address], 08/05/2024 08:18:35 08/04/20 24 08/05/2024 CBC WITH DIFFE RENTI AL/PL ATELE T platelets 343 x10e3 /uL 150-45 0 normal Not Available [facility] ([facility]) [address] [facility], [place], [address], 08/05/2024 08:18:35 08/04/20 24 08/05/2024 CBC WITH DIFFE RENTI AL/PL ATELE T neutrophils 58 % not estab. normal Not Available [facility] ([facility]) [address] [facility], [place], [address], 08/05/2024 08:18:35 08/04/20 24 08/05/2024 CBC WITH DIFFE RENTI AL/PL ATELE T lymphs 25 % not estab. normal Not Available [facility] ([facility]) [address] [facility], [place], [address], 08/05/2024 08:18:35 08/04/20 24 08/05/2024 CBC WITH DIFFE RENTI AL/PL ATELE T monocytes 12 % not estab. normal Not Available [facility] ([facility]) [address] [facility], [place], [address], 08/05/2024 08:18:35 08/04/20 24 08/05/2024 CBC WITH DIFFE RENTI AL/PL ATELE T eos 4 % not estab. normal Not Available [facility] ([facility]) [address] [facility], [place], [address], 08/05/2024 08:18:35 08/04/20 24 08/05/2024 CBC WITH DIFFE RENTI AL/PL ATELE T basos 1 % not estab. normal Not Available [facility] ([facility]) [address] [facility], [place], [address], 08/05/2024 08:18:35 08/04/20 24 08/05/2024 CBC WITH DIFFE RENTI AL/PL ATELE T immature cells CONE EXAMINER Not Available [facility] ([facility]) [address] [facility], [place], [address], 08/05/2024 08:18:35 08/04/20 24 08/05/2024 CBC WITH DIFFE RENTI AL/PL ATELE T neutrophils (absolute) 6.4 x10e3 /uL 1.4-7. 0 normal Not Available [facility] ([facility]) [address] [place], [address], 08/05/2024 08:18:35 08/04/20 24 08/05/2024 CBC WITH DIFFE RENTI AL/PL ATELE T lymphs (absolute) 2.7 x10e3 /uL 0.7-3. 1 normal Not Available [facility] ([facility]) [address] [facility], [place], [address], 08/05/2024 08:18:35 08/04/20 24 08/05/2024 CBC WITH DIFFE RENTI AL/PL ATELE T monocytes(ab solute) 1.3 x10e3 /uL 0.1-0. 9 above high normal Not Available [facility] ([facility]) [address] [facility], [place], [address], 08/05/2024 08:18:35 08/04/20 24 08/05/2024 CBC WITH DIFFE RENTI AL/PL ATELE T eos (absolute) 0.4 x10e3 /uL 0.0-0. 4 normal Not Available [facility] ([facility]) [address] [facility], [place], [address], 08/05/2024 08:18:35 08/04/20 24 08/05/2024 CBC WITH DIFFE RENTI AL/PL ATELE T baso (absolute) 0.1 x10e3 /uL 0.0-0. 2 normal Not Available [facility] ([facility]) [address] [facility], [place], [address], 08/05/2024 08:18:35 08/04/20 24 08/05/2024 CBC WITH DIFFE RENTI AL/PL ATELE T immature granulocytes 0 % not estab. Not Available [facility] ([facility]) [address] [facility], [place], [address], 08/05/2024 08:18:35 08/04/20 24 08/05/2024 CBC WITH DIFFE RENTI AL/PL ATELE T immature grans (abs) 0.0 x10e3 /uL 0.0-0. 1 Not Available [facility] ([facility]) [address] [facility], [place], [address], 08/05/2024 08:18:35 08/04/20 24 08/05/2024 CBC WITH DIFFE RENTI AL/PL ATELE T NRBC CONE EXAMINER Not Available [facility] ([facility]) [address] [facility], [place], [address], 08/05/2024 08:18:35 08/04/20 24 08/05/2024 CBC WITH DIFFE RENTI AL/PL ATELE T hematology comments: CONE EXAMINER Not Available [facility] ([facility]) [address] [facility], [place], [address], 08/05/2024 08:18:35 08/04/20 24 08/05/2024 COMP. METAB OLIC PANEL (14) glucose 154 mg/dL 70-99 above high normal Not Available [facility] ([facility]) [address] [facility] [place], [address], 08/05/2024 08:18:36 08/04/20 24 08/05/2024 COMP. METAB OLIC PANEL (14) BUN 21 mg/dL 8-27 normal Not Available [facility] ([facility]) [address] [place] [place], [address], 08/05/2024 08:18:36 08/04/20 24 08/05/2024 COMP. METAB OLIC PANEL (14) creatinine 0.94 mg/dL 0.76-1 .27 normal Not Available [facility] ([facility]) [address] [place] [place], [address], 08/05/2024 08:18:36 08/04/20 24 08/05/2024 COMP. METAB OLIC PANEL (14) eGFR 92 mL/mi n/1.7 3 >59 normal Not Available [facility] ([facility]) [address] [place] [place], [address], 08/05/2024 08:18:36 08/04/20 24 08/05/2024 COMP. METAB OLIC PANEL (14) BUN/creatini ne ratio 22 10-24 normal Not Available [facility] ([facility]) [address] [place], [address], 08/05/2024 08:18:36 08/04/20 24 08/05/2024 COMP. METAB OLIC PANEL (14) sodium 137 mmol/ L 134-14 4 normal Not Available [facility] ([facility]) [address] [place], [address], 08/05/2024 08:18:36 08/04/20 24 08/05/2024 COMP. METAB OLIC PANEL (14) potassium 4.1 mmol/ L 3.5-5. 2 normal Not Available [facility] ([facility]) [address] [place], [address], 08/05/2024 08:18:36 08/04/20 24 08/05/2024 COMP. METAB OLIC PANEL (14) chloride 100 mmol/ L 96-106 normal Not Available [facility] ([facility]) [address] [place], [address], 08/05/2024 08:18:36 08/04/20 24 08/05/2024 COMP. METAB OLIC PANEL (14) carbon dioxide, total 18 mmol/ L 20-29 below low normal Not Available [facility] ([facility]) [address] [place], [address], 08/05/2024 08:18:36 08/04/20 24 08/05/2024 COMP. METAB OLIC PANEL (14) calcium 9.5 mg/dL 8.6-10 .2 normal Not Available [facility] ([facility]) [address] [place] [address], [place], [address], 08/05/2024 08:18:36 08/04/20 24 08/05/2024 COMP. METAB OLIC PANEL (14) protein, total 7.0 g/dL 6.0-8. 5 normal Not Available [facility] ([facility]) [address] [place], [address], 08/05/2024 08:18:36 08/04/20 24 08/05/2024 COMP. METAB OLIC PANEL (14) albumin 4.4 g/dL 3.9-4. 9 normal Not Available [facility] ([facility]) [address] [place], [address], 08/05/2024 08:18:36 08/04/20 24 08/05/2024 COMP. METAB OLIC PANEL (14) globulin, total 2.6 g/dL 1.5-4. 5 Not Available [facility] ([facility]) [address] [place], [address], 08/05/2024 08:18:36 08/04/20 24 08/05/2024 COMP. METAB OLIC PANEL (14) bilirubin, total 1.0 mg/dL 0.0-1. 2 normal Not Available [facility] ([facility]) [address] [place], [address], 08/05/2024 08:18:36 08/04/20 24 08/05/2024 COMP. METAB OLIC PANEL (14) alkaline phosphatase 79 IU/L 44-121 normal Not Available [facility]) [address] [place], [address], 08/05/2024 08:18:36 08/04/20 24 08/05/2024 COMP. METAB OLIC PANEL (14) AST (SGOT) 18 IU/L 0-40 normal Not Available [facility] ([facility]) [address] [place] [place], [address], 08/05/2024 08:18:36 08/04/20 24 08/05/2024 COMP. METAB OLIC PANEL (14) ALT (SGPT) 41 IU/L 0-44 normal Not Available [facility] ([facility]) [address] [place], [address], 08/05/2024 08:18:36 08/04/20 24 08/05/2024 LIPID PANEL cholesterol, total 172 mg/dL 100-19 9 normal Not Available [facility] ([facility]) [address] [facility] [place], [address], 08/05/2024 08:18:36 08/04/20 24 08/05/2024 LIPID PANEL triglyceride s 163 mg/dL 0-149 above high normal Not Available [facility] ([facility]) [address] [facility] [place], [address], 08/05/2024 08:18:36 09/13/08/05/2024 LIPID PANEL HDL cholesterol 32 mg/dL >39 below low normal Not Available [facility] ([facility]) [address] [place], [address], 08/05/2024 08:18:36 08/04/20 24 08/05/2024 LIPID PANEL VLDL cholesterol saul 29 mg/dL 5-40 Not Available [facility] ([facility]) [address] [place], [address], 08/05/2024 08:18:36 08/04/20 24 08/05/2024 LIPID PANEL LDL chol calc ([facility]) 111 mg/dL 0-99 above high normal Not Available [facility] ([facility]) [address] [place], [address], 08/05/2024 08:18:36 08/04/20 24 08/05/2024 LIPID PANEL LDL calc comment: CONE EXAMINER Not Available [facility] ([facility]) [address] [facility], [place], [address], 08/05/2024 08:18:36 08/04/2008/05/2024 PROST ATE-S PECIF IC [...] t be inter prete d as absol suri evide nce of the prese nce or absen ce of marlys banda disea se. Not Available [facility] ([facility]) [address] [facility] [place], [address], 08/05/2024 08:18:37 08/04/20 24 08/05/2024 VITAM IN [...] um and D. Timo mosher [place]: [facility] . 2. Pennie maciel [place], Alessandro mireles [place], Savita off-F errar i MILLER, et al. Evalu ation , treat ment, and preve ntion of vitam in D defic iency : an Endoc rine Socie ty clini saul pract ice guide line. JCEM. 2010; 96(7) :1911 -30. Not Available [facility] ([facility]) [address] [facility], [place], [address], 08/05/2024 08:18:37 08/04/20 24 08/04/2024 HbA1c (hemo globi n A1c), blood HbA1c 8.2 Not Available [address], [address], 08/04/2024 10:23:22 06/05/20 25 06/06/2025 TSH+F REE T4 TSH 2.340 uIU/m L 0.450- 4.500 normal Not Available [facility] ([facility]) [address] [facility], [place], [address], 06/06/2025 10:08:29 06/05/2006/06/2025 TSH+F REE T4 T4,free(dire ct) 1.53 NG/dL 0.82-1 .77 normal Not Available [facility] ([facility]) [address] [place], [address], 06/06/2025 10:08:29 06/05/20 25 06/06/2025 CBC WITH DIFFE RENTI AL/PL ATELE T WBC 10.9 x10e3 /uL 3.4-10 .8 above high normal Not Available [facility] ([facility]) [address] [place], [address], 06/06/2025 10:08:30 06/05/2006/06/2025 CBC WITH DIFFE RENTI AL/PL ATELE T RBC 4.79 x10e6 /uL 4.14-5 .80 normal Not Available [facility] ([facility]) [address] [place], [address], 06/06/2025 10:08:30 06/05/20 25 06/06/2025 CBC WITH DIFFE RENTI AL/PL ATELE T hemoglobin 15.5 g/dL 13.0-1 7.7 normal Not Available [facility] ([facility]) [address] [place], [address], 06/06/2025 10:08:30 06/05/2006/06/2025 CBC WITH DIFFE RENTI AL/PL ATELE T hematocrit 47.3 % 37.5-5 1.0 normal Not Available [facility] ([facility]) [address] [place], [address], 06/06/2025 10:08:30 06/05/20 25 06/06/2025 CBC WITH DIFFE RENTI AL/PL ATELE T MCV 99 fL 79-97 above high normal Not Available [facility] ([facility]) [address] [place], [address], 06/06/2025 10:08:30 06/05/20 25 06/06/2025 CBC WITH DIFFE RENTI AL/PL ATELE T MCH 32.4 pg 26.6-3 3.0 normal Not Available [facility] ([facility]) [address] [facility], [place], [address], 06/06/2025 10:08:30 06/05/20 25 06/06/2025 CBC WITH DIFFE RENTI AL/PL ATELE T MCHC 32.8 g/dL 31.5-3 5.7 normal Not Available [facility] ([facility]) [address] [facility], [place], [address], 06/06/2025 10:08:30 06/05/20 25 06/06/2025 CBC WITH DIFFE RENTI AL/PL ATELE T RDW 13.1 % 11.6-1 5.4 Not Available [facility] ([facility]) [address] [facility], [place], [address], 06/06/2025 10:08:30 06/05/20 25 06/06/2025 CBC WITH DIFFE RENTI AL/PL ATELE T platelets 299 x10e3 /uL 150-45 0 normal Not Available [facility] ([facility]) [address] [facility], [place], [address], 06/06/2025 10:08:30 06/05/2006/06/2025 CBC WITH DIFFE RENTI AL/PL ATELE T neutrophils 69 % not estab. normal Not Available [facility] ([facility]) [address] [facility], [place], [address], 06/06/2025 10:08:30 06/05/20 25 06/06/2025 CBC WITH DIFFE RENTI AL/PL ATELE T lymphs 20 % not estab. normal Not Available [facility] ([facility]) [address] [place], [address], 06/06/2025 10:08:30 07/15/20 25 06/06/2025 CBC WITH DIFFE RENTI AL/PL ATELE T monocytes 8 % not estab. normal Not Available [facility] ([facility]) [address] [facility], [place], [address], 06/06/2025 10:08:30 06/05/20 25 06/06/2025 CBC WITH DIFFE RENTI AL/PL ATELE T eos 2 % not estab. normal Not Available [facility] ([facility]) [address] [facility], [place], [address], 06/06/2025 10:08:30 06/05/20 25 06/06/2025 CBC WITH DIFFE RENTI AL/PL ATELE T basos 1 % not estab. normal Not Available [facility] ([facility]) [address] [facility], [place], [address], 06/06/2025 10:08:30 06/05/20 25 06/06/2025 CBC WITH DIFFE RENTI AL/PL ATELE T immature cells CONE EXAMINER Not Available [facility] ([facility]) [address] [facility], [place], [address], 06/06/2025 10:08:30 06/05/20 25 06/06/2025 CBC WITH DIFFE RENTI AL/PL ATELE T neutrophils (absolute) 7.6 x10e3 /uL 1.4-7. 0 above high normal Not Available [facility] ([facility]) [address] [facility], [place], [address], 06/06/2025 10:08:30 06/05/20 25 06/06/2025 CBC WITH DIFFE RENTI AL/PL ATELE T lymphs (absolute) 2.2 x10e3 /uL 0.7-3. 1 normal Not Available [facility] ([facility]) [address] [facility], [place], [address], 06/06/2025 10:08:30 06/05/20 25 06/06/2025 CBC WITH DIFFE RENTI AL/PL ATELE T monocytes(ab solute) 0.9 x10e3 /uL 0.1-0. 9 normal Not Available [facility] ([facility]) [address] [facility], [place], [address], 06/06/2025 10:08:30 06/05/20 25 06/06/2025 CBC WITH DIFFE RENTI AL/PL ATELE T eos (absolute) 0.2 x10e3 /uL 0.0-0. 4 normal Not Available [facility] ([facility]) [address] [facility], [place], [address], 06/06/2025 10:08:30 06/05/20 25 06/06/2025 CBC WITH DIFFE RENTI AL/PL ATELE T baso (absolute) 0.1 x10e3 /uL 0.0-0. 2 normal Not Available [facility] ([facility]) [address] [facility], [place], [address], 06/06/2025 10:08:30 06/05/20 25 06/06/2025 CBC WITH DIFFE RENTI AL/PL ATELE T immature granulocytes 0 % not estab. Not Available [facility] ([facility]) [address] [facility], [place], [address], 06/06/2025 10:08:30 06/05/20 25 06/06/2025 CBC WITH DIFFE RENTI AL/PL ATELE T immature grans (abs) 0.0 x10e3 /uL 0.0-0. 1 Not Available [facility] ([facility]) [address] [facility], [place], [address], 06/06/2025 10:08:30 06/05/20 25 06/06/2025 CBC WITH DIFFE RENTI AL/PL ATELE T NRBC CONE EXAMINER Not Available [facility] ([facility]) [address] [facility], [place], [address], 06/06/2025 10:08:30 06/05/20 25 06/06/2025 CBC WITH DIFFE RENTI AL/PL ATELE T hematology comments: CONE EXAMINER Not Available [facility] ([facility]) [address] [facility], [place], [address], 06/06/2025 10:08:30 06/05/20 25 06/06/2025 COMP. METAB OLIC PANEL (14) glucose 114 mg/dL 70-99 above high normal Not Available [facility] ([facility]) [address] [facility], [place], [address], 06/06/2025 10:08:31 06/05/20 25 06/06/2025 COMP. METAB OLIC PANEL (14) BUN 13 mg/dL 8-27 normal Not Available [facility] ([facility]) [address] [facility], [place], [address], 06/06/2025 10:08:31 06/05/20 25 06/06/2025 COMP. METAB OLIC PANEL (14) creatinine 0.91 mg/dL 0.76-1 .27 normal Not Available [facility] ([facility]) [address] [facility], [place], [address], 06/06/2025 10:08:31 06/05/20 25 06/06/2025 COMP. METAB OLIC PANEL (14) eGFR 95 mL/mi n/1.7 3 >59 normal Not Available [facility] ([facility]) [address] [facility], [place], [address], 06/06/2025 10:08:31 06/05/20 25 06/06/2025 COMP. METAB OLIC PANEL (14) BUN/creatini ne ratio 14 10-24 normal Not Available [facility] ([facility]) [address] [facility], [place], [address], 06/06/2025 10:08:31 06/05/20 25 06/06/2025 COMP. METAB OLIC PANEL (14) sodium 142 mmol/ L 134-14 4 normal Not Available [facility] ([facility]) [address] [facility] [place], [address], 06/06/2025 10:08:31 06/05/20 25 06/06/2025 COMP. METAB OLIC PANEL (14) potassium 3.9 mmol/ L 3.5-5. 2 normal Not Available [facility] ([facility]) [address] [facility] [place], [address], 06/06/2025 10:08:31 06/05/20 25 06/06/2025 COMP. METAB OLIC PANEL (14) chloride 101 mmol/ L 96-106 normal Not Available [facility] ([facility]) [address] [place], [address], 06/06/2025 10:08:31 06/05/20 25 06/06/2025 COMP. METAB OLIC PANEL (14) carbon dioxide, total 25 mmol/ L 20-29 normal Not Available [facility] ([facility]) [address] [place] [place], [address], 06/06/2025 10:08:31 06/05/20 25 06/06/2025 COMP. METAB OLIC PANEL (14) calcium 9.7 mg/dL 8.6-10 .2 normal Not Available [facility] ([facility]) [address] [place] [place], [address], 06/06/2025 10:08:31 06/05/20 25 06/06/2025 COMP. METAB OLIC PANEL (14) protein, total 7.6 g/dL 6.0-8. 5 normal Not Available [facility] ([facility]) [address] [place] [place], [address], 06/06/2025 10:08:31 06/05/20 25 06/06/2025 COMP. METAB OLIC PANEL (14) albumin 4.7 g/dL 3.9-4. 9 normal Not Available [facility] ([facility]) [address] [place], [address], 06/06/2025 10:08:31 06/05/20 25 06/06/2025 COMP. METAB OLIC PANEL (14) globulin, total 2.9 g/dL 1.5-4. 5 Not Available [facility] ([facility]) [address] [place], [address], 06/06/2025 10:08:31 06/05/20 25 06/06/2025 COMP. METAB OLIC PANEL (14) bilirubin, total 0.8 mg/dL 0.0-1. 2 normal Not Available [facility] ([facility]) [address] [place], [address], 06/06/2025 10:08:31 06/05/20 25 06/06/2025 COMP. METAB OLIC PANEL (14) alkaline phosphatase 81 IU/L 44-121 normal Not Available [facility] ([facility]) [address] [place], [address], 06/06/2025 10:08:31 06/05/20 25 06/06/2025 COMP. METAB OLIC PANEL (14) AST (SGOT) 17 IU/L 0-40 normal Not Available [facility] ([facility]) [address] [place], [address], 06/06/2025 10:08:31 06/05/20 25 06/06/2025 COMP. METAB OLIC PANEL (14) ALT (SGPT) 26 IU/L 0-44 normal Not Available [facility] ([facility]) [address] [place], [address], 06/06/2025 10:08:31 06/05/20 25 06/06/2025 LIPID PANEL cholesterol, total 136 mg/dL 100-19 9 normal Not Available [facility] ([facility]) [address] [facility] [place], [address], 06/06/2025 10:08:32 06/05/20 25 06/06/2025 LIPID PANEL triglyceride s 78 mg/dL 0-149 normal Not Available [facility] ([facility]) [address] [facility], [place], [address], 06/06/2025 10:08:32 06/05/20 25 06/06/2025 LIPID PANEL HDL cholesterol 46 mg/dL >39 normal Not Available [facility] ([facility]) [address] [facility], [place], [address], 06/06/2025 10:08:32 06/05/20 25 06/06/2025 LIPID PANEL VLDL cholesterol saul 15 mg/dL 5-40 Not Available [facility] ([facility]) [address] [facility], [place], [address], 06/06/2025 10:08:32 06/05/20 25 06/06/2025 LIPID PANEL LDL chol calc ([facility]) 75 mg/dL 0-99 Not Available [facility] ([facility]) [address] [facility], [place], [address], 06/06/2025 10:08:32 06/05/20 25 06/06/2025 LIPID PANEL LDL calc comment: CONE EXAMINER Not Available [facility] ([facility]) [address] [facility], [place], [address], 06/06/2025 10:08:32 06/05/20 25 06/06/2025 VITAM IN B12 AND FOLAT E vitamin B12 392 pg/mL 232-12 45 normal Not Available [facility] ([facility]) [address] [place], [address], 06/06/2025 10:08:33 06/05/20 25 06/06/2025 VITAM IN B12 AND FOLAT E folate (folic acid), serum 13.0 NG/mL >3.0 normal A serum folat e janel ntrat ion of less than 3.1 ng/mL is consi dered to repre sent clini saul defic iency . Not Available [facility] ([facility]) [address] [facility], [place], [address], 06/06/2025 10:08:33 06/05/20 25 06/06/2025 HCV ANTIB BERTHA RFX TO QUANT PCR HCV Ab Non Reacti ve non reacti ve Not Available [facility] ([facility]) [address] [facility], [place], [address], 06/06/2025 10:08:33 06/05/20 25 06/06/2025 HCV ANTIB BERTHA RFX TO QUANT PCR interpretati on: Commen t Not infec phi with HCV unles s early or acute infec tion is suspe cted (whic h may be delay ed in an immun ocomp romis ed indiv idual ), or other evide nce exist s to indic ate HCV infec tion. Not Available [facility] ([facility]) [address] [facility], [place], [address], 06/06/2025 10:08:33 06/05/2006/06/2025 HEMOG LOBIN A1C hemoglobin A1C 6.2 % 4.8-5. 6 above high normal Predi abete s: 5.7 - 6.4 Diabe kasey: >6.4 Glyce taylor contr ol for adult s with diabe kasey: <7.0 Not Available [facility] ([facility]) [address] [facility], [place], [address], 06/06/2025 10:08:34 06/05/20 25 06/06/2025 PROST ATE-S PECIF IC AG prostate specific [...] t be inter prete d as absol suri evide nce of the prese nce or absen ce of [facility] [place] disea se. Not Available [facility] ([facility]) [address] [facility], [place], [address], 06/06/2025 10:08:35 06/05/20 25 06/06/2025 VITAM IN [...] um and D. Timo mosher [place]: [facility] . 2. Pennie maciel [place], Alessandro mireles [place], Savita off-F errar i MILLER, et al. Evalu ation , treat ment, and preve ntion of vitam in D defic iency : an Endoc rine Socie ty clini saul pract ice guide line. JCEM. 2010; 96(7) :1911 -30. Not Available [facility] ([facility]) [address] [facility], [place], [address], 06/06/2025 10:08:36 06/05/20 25 06/05/2025 HbA1c (hemo globi n A1c), blood HbA1c 6.3 Not Available Silas [address], [address], 06/04/2025 15:05:23 09/27/20 25 09/27/2025 micro album in/cr eatin ine, mass ratio , urine Microalbumin 30 Not Available [address], [address], 09/27/2025 08:25:36 09/27/20 25 09/27/2025 micro album in/cr eatin ine, mass ratio , urine Creatinine 300 Not Available [address], [address], 09/27/2025 08:25:36 09/27/20 25 09/27/2025 micro album in/cr eatin ine, mass ratio , urine Ratio <30 Not Available [address], [address], 09/27/2025 08:25:36 09/27/20 25 09/27/2025 HbA1c (hemo globi n A1c), blood HbA1c 6.0 Not Available [address], [address], 09/27/2025 08:24:45 08/04/20 24 08/04/2024 CT, abdom en + pelvi s, w/o contr ast No observ ation record ed. [facility] [address], [place], [address], 08/29/2024 12:50:32 01/03/20 25 01/03/2025 CT, abdom en + pelvi s, w/ contr ast No observ ation record ed. [email or web address] [facility] (Radiology) [address], [place], [address], 01/09/2025 10:55:31 02/01/20 25 01/24/2025 stres s echoc ardio gram with doppl er color flow (PROC ) No observ ation record ed. [address], [place], [address], 02/01/2025 10:40:40 04/12/20 25 04/12/2025 XR, chest , 2 view No observ ation record ed. [email or web address] [facility] (Radiology) [address] , [place], [address], 04/27/2025 10:34:30 09/20/2009/20/2025 XR, chest No observ ation record ed. [place] [id number], [place], [address], 09/25/2025 09:56:52 09/27/20 XR, lumba r spine No observ ation record ed. [address], [place], [address], 10/08/2025 15:14:59 10/10/2010/10/2025 elect librado james am No observ ation record ed. [place] [id number], [place], [address], 10/12/2025 09:30:10 10/10/20 25 10/10/2025 stres s echoc ardio gram No observ ation record ed. [address], [place], [place], [address], 10/12/2025 09:30:27 10/14/2010/10/2025 US, doppl er echoc ardio gram No observ ation record ed. [address], [place], [address], 10/15/2025 08:25:25 11/08/20 11/08/2025 imagi ng/di agnos tic resul t No observ ation record ed. [facility] [address], [place], [address], 11/08/2025 13:26:57 11/10/20 25 11/08/2025 imagi ng/di agnos tic resul t No observ ation record ed. [facility] [address], [place], [address], 11/10/2025 01:28:59 Result Notes None recorded. Problems Name Problem SNOMED Code Status Onset Date Resolution Date Notes Provider Name and Address Organization Details Recorded Time Johanny [id number] Completed 201604/12/2017 Problem Code: K92.1; Problem Code Type: ICD-10; Not Available [facility] 2 20:49:49 Altered bowel function 51291073 Completed 201604/12/2017 Problem Code: R19.4; Problem Code Type: ICD-10; Not Available [facility] 2 20:49:59 Digestiv e symptom 018312845 Completed 201604/12/2017 Problem Code: 787.99; Problem Code Type: ICD-9; Not Available [facility] 2 20:50:00 Hematoch ezia 297466229 Completed 201604/12/2017 Problem Code: 578.1; Problem Code Type: ICD-9; Not Available [facility] 2 20:50:00 Hyperten sive disorder 99360951 Active 2016 Problem Code: I10; Problem Code Type: ICD-10; Not Available [facility] 2 20:49:49 Large prostate 296947891 Active 2016 Problem Code: N40.0; Problem Code Type: ICD-10; Not Available [facility] 2 20:49:50 Benign essentia l hyperten michelle 9627276 Completed 201611/20/2021 Problem Code: 401.1; Problem Code Type: ICD-9; Not Available [facility] 2 20:49:58 Benign prostati c hyperpla angela 321470461 Completed 201611/20/2021 Problem Code: 600.00; Problem Code Type: ICD-9; Not Available [facility] 2 20:50:01 Silviano armstrong a [id number] Completed 201610/31/2019 Problem Code: R31.0; Problem Code Type: ICD-10; Not Available [facility] 2 20:49:52 Primary malignan t neoplasm of urinary bladder 23536745 Completed 201611/20/2021 Problem Code: 188.8; Problem Code Type: ICD-9; Not Available [facility] 2 20:49:56 Silviano sotouri a [id number] Completed 201610/31/2019 Problem Code: R31.0; Problem Code Type: ICD-10; Not Available [facility] 2 20:50:00 Acute exacerba tion of chronic obstruct arlene pulmonar y disease 485758350 Active 2016 Problem Code: J44.1; Problem Code Type: ICD-10; Not Available [facility] 2 20:49:49 Cough 12101490 Completed 201609/12/2017 Problem Code: R05; Problem Code Type: ICD-10; Not Available [facility] 2 20:49:51 Acute exacerba tion of chronic bronchit is 358895524 Completed 201608/25/2022 YAZMIN verma [employer] 2 10:17:07 Respirat ory symptom 940506692 Completed 201607/28/2017 Not Available [facility] 2 20:50:01 Benign essentia l hyperten michelle 9392855 Completed 201611/20/2021 Problem Code: 401.1; Problem Code Type: ICD-9; Not Available [facility] 2 20:49:58 Pain in right lower limb 099999345 Completed 201608/25/2022 YAZMIN verma [employer]. 10:17:07 Low back pain 548861828 Completed 201603/30/2020 Problem Code: M54.5; Problem Code Type: ICD-10; [employer]MIN [employer]. 10:17:07 Benign essentia l hyperten michelle 6303989 Completed 201611/20/2021 Problem Code: 401.1; Problem Code Type: ICD-9; Not Available [facility] 2 20:49:58 Pain in limb 13252972 Completed 201608/25/2022 Problem Code: 729.5; Problem Code Type: ICD-9; YAZMIN LUCAS [employer]. 10:17:07 Low back pain 305314808 Completed 201708/25/2022 Problem Code: M54.5; Problem Code Type: ICD-10; YAZMIN LUCAS [employer]. 10:17:07 Mixed hyperlip idemia 378320460 Active 2018 Problem Code: E78.2; Problem Code Type: ICD-10; Not Available [facility] 20:49:48 Abnormal weight gain 570943952 Completed 201808/25/2022 Problem Code: R63.5; Problem Code Type: ICD-10; YAZMIN LUCAS [employer]. 10:17:07 Abnormal finding on evaluati on procedur e 487498822 Completed 201808/25/2022 YAZMINTIMOTEO LUCAS [employer]. 10:17:07 Acute bronchit is 92321711 Completed 201810/31/2019 Problem Code: J20.9; Problem Code Type: ICD-10; Not Available [facility] 2 20:49:49 Cough 76431259 Completed 201810/31/2019 Problem Code: R05; Problem Code Type: ICD-10; Not Available [facility] 2 20:49:51 Chest pain 88314236 Completed 201803/30/2020 Problem Code: R07.89; Problem Code Type: ICD-10; YAZMIN ROYNER bayron, [employer]. 10:17:07 Body mass index 30+ - obesity 902673820 Completed 201803/04/2021 Problem Code: Z68.30; Problem Code Type: ICD-10; Not Available [facility] 20:49:55 Degenera tion of lumbar interver tebral disc 48123872 Active 2018 Problem Code: M51.36; Problem Code Type: ICD-10; Not Available [facility] 20:49:49 Degenera tion of lumbosac ral interver tebral disc 67270959 Completed 201808/25/2022 Problem Code: M51.37; Problem Code Type: ICD-10; YAZMIN ROYNER bayron, [employer] 10:17:07 Body mass index 30+ - obesity 404231962 Completed 201803/04/2021 Problem Code: Z68.30; Problem Code Type: ICD-10; Not Available [facility] 20:50:02 Low back pain 668476037 Completed 201803/30/2020 Problem Code: M54.5; Problem Code Type: ICD-10; YAZMIN ROYNER bayron, [employer] 10:17:07 Pain in thoracic spine 931962315 Completed 201808/25/2022 Problem Code: M54.6; Problem Code Type: ICD-10; YAZMIN ROYNER [employer], [employer] 10:17:07 Insomnia co-occur rent and due to medical conditio n 31456384062 105 Active 2018 Problem Code: G47.01; Problem Code Type: ICD-10; YAZMIN LANCE bayron, [employer] 10:17:21 Low back pain 348492303 Completed 201803/30/2020 Problem Code: M54.5; Problem Code Type: ICD-10; YAZMIN verma [employer]. 10:17:07 Body mass index 30+ - obesity 293283581 Completed 201803/04/2021 Problem Code: Z68.30; Problem Code Type: ICD-10; Not Available [facility] 20:49:54 Hematoma of thigh 145699440 Completed 201903/04/2021 Problem Code: S70.12XD ; Problem Code Type: ICD-10; Not Available [facility] 20:49:52 General examinat ion of patient Completed 201903/04/2021 Not Available [facility] 20:49:53 Body mass index 30+ - obesity 119102446 Completed 201903/04/2021 Problem Code: Z68.30; Problem Code Type: ICD-10; Not Available [facility] 20:49:54 Chest pain 05679803 Completed 201908/25/2022 Problem Code: R07.89; Problem Code Type: ICD-10; YAZMIN verma, [employer]. 10:17:07 Body mass index 30+ - obesity 460756886 Completed 201903/04/2021 Problem Code: Z68.30; Problem Code Type: ICD-10; Not Available [facility] 20:49:55 Nicotine dependen 99582681 Active 2020 Problem Code: F17.200; Problem Code Type: ICD-10; Not Available [facility] 20:49:49 Body mass index 30+ - obesity 843731014 Completed 202011/20/2021 Problem Code: Z68.30; Problem Code Type: ICD-10; Not Available [facility] 20:49:56 Myositis 78034528 Completed 202008/25/2022 Problem Code: M60.9; Problem Code Type: ICD-10; YAZMIN verma [employer]. 10:17:07 Cough 99214332 Completed 202011/20/2021 Problem Code: R05; Problem Code Type: ICD-10; Not Available [facility] 20:49:51 COVID-19 503169294 Completed 202011/20/2021 Problem Code: U07.1; Problem Code Type: ICD-10; Not Available [facility] 20:49:53 Exposure to SARS-CoV -2 Completed 202008/25/2022 Problem Code: Z20.822; Problem Code Type: ICD-10; YAZMIN ROYNER bayron, [employer]. 10:17:07 Swelling / lump finding Completed 202002/13/2022 Problem Code: R22.9; Problem Code Type: ICD-10; Not Available [facility] 20:49:52 Myositis 44884200 Completed 202102/13/2022 Problem Code: M60.9; Problem Code Type: ICD-10; YAZMIN ROYNER bayron, [employer]. 10:17:07 Acute respirat ory infectio ns 139283438 Completed 202108/25/2022 Problem Code: J22; Problem Code Type: ICD-10; YAZMIN ROYNER bayron, [employer] 10:17:07 Wheezing 50753397 Active 2021 Problem Code: R06.2; Problem Code Type: ICD-10; YAZMIN ROYNER null, [employer]. 10:17:27 Body mass index 30+ - obesity 814719468 Active 2021 Problem Code: Z68.30; Problem Code Type: ICD-10; Not Available [facility] 20:49:55 Puncture wound of hand 830845051 Completed 202108/25/2022 Problem Code: S61.432A ; Problem Code Type: ICD-10; YAZMIN LUCAS null, [employer] 2 10:17:07 Type 2 diabetes mellitus 56994259 Active 2023 Margoth Frazier null, [employer] 4 08:33:05 Lacerati on of right forearm 83229090087 596392 Active 2023 Negrita Zavala, MERCHANDISE CLERK [address] [place], [address] , [employer] 4 16:20:34 Cellulit is of right forearm 50508575106 368781 Active 2023 Negrita Zavala, MERCHANDISE CLERK [address] [place], [address] , [employer] 4 16:24:03 Type 2 diabetes mellitus without complica tion 328920861 Active 2023 Margoth Frazier null, [employer] 4 13:30:24 Overweig ht in adulthoo d with body mass index of 25 or more but less than 30 172699467 Active 2024 Margoth Frazier null, [employer] 5 15:06:19 Hyperlip idemia 02415049 Active 2024 Margoth Frazier null, [employer] 5 15:06:49 Hypergly cemia 20267522 Active 2024 Margoth Frazier null, [employer] 5 15:06:50 Fatigue 92556551 Active 2024 Margoth Byersy null, [employer] 5 15:06:50 Nocturia 326053294 Active 2024 Margoth Frazier null, [employer] 5 15:06:54 Diabetes mellitus 78873869 Active 2024 Margoth Frazier null, [employer] 5 08:24:41 Problem Notes None recorded. Procedures Surgical History Date Name Laterality Status Provider Name and Address Organization Details Recorded Time procedure on urinary bladder completed [facility]. 08/25/2022 10:19:49 repair of aneurysm of aorta completed [facility]. 08/25/2022 10:20:42 Stent completed [facility] 10/19/2022 15:33:35 Imaging Results None recorded. Procedure [...] mL (0.083 %) solution for nebulizati on take 3ml by nebuliza tion every 4 hours NEEDED FOR wheezing AND SHORTNES S OF BREATH active Not Available Not Available No t Available trazodone 50 mg tablet TAKE 1 TABLET BY MOUTH EVERY DAY in THE evening active Not Available Not Available No t Available cetirizine 10 mg tablet take 1 tablet [...] mg tablet,ext ended release 24 hr TAKE 1 TABLET BY MOUTH DAILY active Not Available Not Available No [...] Not Available Not Available No t Available nicotine 21 mg/24 hr daily transderma l patch Apply 1 patch every day by transder mal route. 2024 active Not Available Not Available Not Avai lable nitroglyce rin 0.4 mg sublingual tablet DISSOLVE [...] completed Not Available Not Available Not Available nadolol 40 mg tablet TAKE ONE TABLET BY MOUTH EVERY DAY active Not Available Not Available No t Available etodolac 400 mg tablet take 1 tablet (400 mg) by oral route 2 times per day with food PRN back pain 03/30 completed Not Available Not Available Not Available prednisone 5 mg tablets in a dose [...] Not Available Not Available No t Available Vitamin D2 1,250 mcg (50,000 unit) capsule TAKE 1 CAPSULE BY MOUTH every WEEK FOR 90 DAYS active Not Available Not [...] 1 TABLET BY MOUTH TWICE DAILY active Not Available Not Available No t Available Anoro Ellipta 62.5 mcg-25 mcg/actuat ion powder for inhalation Take 1 inhalati on(s) by mouth daily 02/23 completed Not Available Not Available Not Available Jardiance 25 mg tablet TAKE 1 TABLET BY MOUTH EVERY DAY active Not Available Not Available No t Available Raquel Ellipta 100 mcg-62.5 mcg-25 mcg powder for inhalation inhale 1 PUFF BY MOUTH EVERY DAY] active Not Available Not Available No t Available Breztri Aerosphere 160 mcg-9mcg-4 .8mcg/actu ation HFA aerosol inhaler active Not Available Not Available Not Available Vitals Date Recorded Body height Body mass index (BMI) Body weight Body temperature Heart rate Oxygen saturation Systolic And Diastolic Systolic And Diastolic Provider Name and Address Organization Details Last Updated DateTime 4 185.42 cm 30.7 kg/m2 354178. 87 g 98 [degF] 88 /min 90 % 144/91 mm[Hg] 145/80 mm[Hg] Angie Sanchez [employer] 4 16:04:57 Date Recorded Body height Body mass index (BMI) Body weight Heart rate Oxygen saturation Systolic And Diastolic Provider Name and Address Organization Details Last Updated DateTime 4 185.42 cm 30.6 kg/m2 633208. 43 g 83 /min 90 % 138/88 mm[Hg] Margoth [employer]. 4 13:50:09 Date Recorded Body height Body mass index (BMI) Body weight Heart rate Oxygen saturation Systolic And Diastolic Systolic And Diastolic Systolic And Diastolic Provider Name and Address Organization Details Last Updated DateTime 5 185.42 cm 28 kg/m2 86255.3 8 g 95 /min 95 % 152/100 mm[Hg] 156/104 mm[Hg] 154/90 mm[Hg] Margoth [employer] 5 09:32:09 Date Recorded Body height Body mass index (BMI) Body weight Heart rate Oxygen saturation Systolic And Diastolic Provider Name and Address Organization Details Last Updated DateTime 4 185.42 cm 29.7 kg/m2 968044. 28 g 91 /min 91 % 130/83 mm[Hg] Margoth Frazier [employer] 4 10:39:49 Date Recorded Body height Body mass index (BMI) Body weight Oxygen saturation Heart rate Systolic And Diastolic Systolic And Diastolic Systolic And Diastolic Provider Name and Address Organization Details Last Updated DateTime 5 185.42 cm 26.7 kg/m2 57824.6 6 g 97 % 78 /min 150/82 mm[Hg] 162/88 mm[Hg] 138/90 mm[Hg] Margoth Frazier [employer]. 5 09:04:14 Social History Question Answer Notes LastModified by Organizat ion Details LastModified Time Tobacco Smoking Status Current Some Day Smoker YAZMIN verma, [employer]. 08/25/2022 10:19:13 Are You Blind Or Do You Have Difficulty Seeing? No [email or web address] Information n ot available 08/25/2022 What Is [...] Do You Have Serious Difficulty Hearing? No [email or web address] Information not available 08/25/2022 What Was The Date Of Your Most Recent Tobacco Screening? 09/27/2025 Information not available 09/27/2025 What Is Your Current Pack Years? 30ormorepack years [email or web address] Information not available 08/25/2022 What Is Your Relationship Status? [email or web address] Information not available 08/25/2022 Do You Have Smoke And Carbon Monoxide Detectors In Your Home? Yes Information not available 04/27/2023 How Much Tobacco Do You Smoke? 1 PPD [email or web address] Information not available 08/25/2022 Has Tobacco Cessation Counseling Been Provided? Yes Information not available 04/27/2023 On What Date Was Tobacco Cessation Counseling Provided? 09/27/2025 Information not available 09/27/2025 Have You Recently Traveled Abroad? No Information not available 04/27/2023 Do You Have Difficulty Walking Or Climbing Stairs? No [email or web address] Information not available 08/25/2022 Are You Currently In School? No [email or web address] Information not available 08/25/2022 Sex: Unknown Functional Status Question Answer Note LastModified by Organizat ion Details LastModified Time Do you use any illicit or recreational drugs? No Information not available 04/27/2023 What is your level of alcohol consumption? None Information not available 04/27/2023 Are you currently employed? No Information not available 08/25/2022 Do you have transportation difficulties? No [email or web address] Information not available 08/25/2022 Are you able to walk independently without assistance or assistive devices? YESWOREST [email or web address] Information not available 08/25/2022 Do you have difficulty doing errands alone? No [email or web address] Information not available 08/25/2022 Are you able to care for yourself independently? Yes [email or web address] Information not available 08/25/2022 Do you have difficulty dressing, bathing, grooming, or toileting? No [email or web address] Information not available 08/25/2022 Mental Status Question Answer Note LastModified by Organization D etails LastModified Time Do you have difficulty concentrating, remembering or making decisions? No Information no t available 08/25/2022 Family History Relationship Description Onset Age of this Age Resolved Age Notes LastModified by Organization Details LastModified Time Father Family history of Myocardial infarction [email or web address] Not available 02/2022 10:18:04 Medical History Condition Response Coronary Artery Disease N Other N Gout N Kidney Stones N Blood Diseases N Hyperthyroidism N Breast Cancer N Blood Transfusion N Emergency room visit since last appointm ent. N Hypothyroidism N Lung Disease N COPD N Dermatologic Disorders N Depression N Defects or Inherited Disease N Developmental or Behavioral Disorders N Breast Problem N Difficulty Swallowing N Anesthesia Complications N History of STI N Meniere's disease N Anxiety Disorder N Muscle, Joint, or Bone Problems N Autoimmune disease N Vision or Eye Problems N Arthritis N Polyps N Infertility N Mental Disorder N Congenital Anomalies N Acid Reflux (GERD) N Cancer N Stroke N Neurologic/Epilepsy N Endometriosis N Bladder or Kidney Problems N High Cholesterol N Liver Disease N Psychiatric/Mental Health Condition N Organ Transplant N Dialysis N Fibromyalgia N Schizophrenia N Headaches N Kidney Disease N Allergies/Hayfever N Heart [...] N Pulmonary Embolism N Tourette Syndrome N Pre-Eclampsia N Hypertension N Chronic Ear Infections N Osteoporosis N Chicken Pox N Autism Spectrum Disorder (ASD) N Thrombophilias N Immunizations Vaccine Type Date Status Note Provider Nam e and Address Organization Details Recorded Time Pneumococcal conjugate PCV 13 5 completed Not Available [facility] 07/28/2022 23:04:32 COVID-19 vaccine, vector-nr, rS-Ad26, PF, 0.5 mL 1 completed Angie verma, [employer] 05/03/2024 16:05:03 Tdap 2 completed YAZMIN verma, [employer] 10/19/2022 15:23:42 zoster recombinant 4 completed Margoth verma, [employer] 04/07/2024 10:42:02 Tdap 4 completed Negrita Zavala APRN [address] [place], [address], [employer] 05/03/2024 16:30:11 Influenza, split virus, quadrivalent, PF 2 completed Angie verma, [employer] 05/03/2024 16:05:03 Influenza, split virus, quadrivalent, PF 5 completed Angie verma [place] [facility] [place] [employer] 05/03/2024 16:05:03 Pneumococcal conjugate PCV20, polysaccharide [id number] conjugate, adjuvant, PF 4 completed Not Available [facility] 09/27/2025 08:22:01 Past Encounters Encounter ID Performer Location Encounter Start Date Encounter Closed Date Diagnosis/Indication Diagnosis SNOMED-CT Code Diagnosis ICD10 Code Diagnosis IMO Codes Diagnosis [place] [id number] [place] [address] 10/19/2022 15:18:38 10/19/2022 15:46:59 Insomnia co-occurrent and due to medical condition 4515609478 9105 G47.01 Benign pro static hyperplasia 971173612 N40.0 Allergic rhinitis 788673 04 J30.9 [id number] Lali Dominog [place] [address] 04/27/2023 08:32:16 04/27/2023 09:47:56 Allergic rhinitis 00551973 J30.9 Benign pro static hyperplasia 769671012 N40.0 Insomnia c o-occurrent and due to medical condition 6025289138 9105 G47.01 Body mass index 30+ - obesity 963586581 Z68.30 [id number] Lali Domingo [place] [address] 0 10/18/2023 11:31:43 10/18/2023 11:43:38 Insomnia co-occurrent and due to medical condition 4885107135 9105 G47.01 Hypertensive disorder 38 855175 I10 Body mass index 30+ - obesity 588718302 Z68.30 [id number] Lali Domingo [place] [address] 0 01/18/2024 10:27:24 01/18/2024 11:52:08 Benign prostatic hyperplasia 508479035 N40.0 Insomnia c o-occurrent and due to medical condition 6032401774 9105 G47.01 Body mass index 30+ - obesity 866497061 Z68.30 Nicotine dependence 5629 4008 F17.200 Fatigue 77332170 R53.83 Hyperlipidemia 05886942 E78.5 Nocturia 461556411 R35.1 Vitamin D deficiency 347 79326 E55.9 Vitamin B deficiency 479 91658 E53.9 Chronic ob structive pulmonary disease 66772280 J44.9 Screening for malignant neoplasm of colon 944164452 Z12.11 [id number] [place] [address] 02/04/2024 16:26:58 02/04/2024 16:45:24 Type 2 diabetes mellitus without complication 296611710 E11.9 [id number] [place] [address] 02/04/2024 16:57:13 02/04/2024 17:32:04 Type 2 diabetes mellitus without complication 812084622 E11.9 Essential hypertension 62154568 I10 Body mass index 30+ - obesity 869792340 Z68.30 [id number] [place] [address] 04/07/2024 08:14:56 04/07/2024 09:09:32 Adult health examination 773442420 Z00.00 Body mass index 30+ - obesity 906237526 Z68.30 Mixed hyperlipidemia 267 695142 E78.2 Essential hypertension 71476955 I10 Type 2 daniel betes mellitus without complication 618648427 E11.9 patient is too soon for A1C, will do A1c, microalbum in and dm foot exam @ next visit in 1 month. Active or passive immunization 979785672 Z23 shinlges VIS given. Allergic rhinitis 483632 04 J30.9 Benign pro static hyperplasia 935168066 N40.0 Insomnia c o-occurrent and due to medical condition 1609392459 9105 G47.01 [id number] [place] [address] 05/03/2024 15:58:16 05/03/2024 16:55:27 Laceration of right forearm 5950955405 8256910 S51.811A Cellulitis of right forearm 2905796476 2260210 L03.019 [id number] [place] [id number] 05/05/2024 13:24:09 05/05/2024 14:32:20 Type 2 diabetes mellitus without complication 095810518 E11.9 Benign pro static hyperplasia 769430928 N40.0 Insomnia c o-occurrent and due to medical condition 9226727898 91 G47.01 Body mass index 30+ - obesity 402325924 Z68.30 [id number] [place] [id number] 08/04/2024 10:16:29 08/04/2024 11:20:32 Type 2 diabetes mellitus without complication 027182169 E11.9 Fatigue 69403054 R53.83 Hyperlipidemia 51359648 E78.5 Nocturia 610217129 R35.1 Vitamin D deficiency 347 30593 E55.9 Chronic ob structive pulmonary disease 95011015 J44.9 Allergic rhinitis 017742 04 J30.9 Benign pro static hyperplasia 649581496 N40.0 Insomnia c o-occurrent and due to medical condition 2430142196 91 G47.01 Abdominal aortic aneurysm without rupture 08634181 I71.40 Body mass index 25-29 - overweight 481203093 Z68.29 [id number] [place] [id number] 06/05/2025 08:42:09 06/05/2025 10:05:05 Type 2 diabetes mellitus without complication 191889585 E11.9 Overweight in adulthood with body mass index of 25 or more but less than 30 785121715 E66.3 Z68.29 9395441484 Viral scre ening status 958558069 Z11.59 575128 Hyperlipidemia 69875160 E78.5 Fatigue 25387056 R53.83 Hyperglycemia 05379011 R 73.9 Nocturia 149963785 R35.1 74655 Chronic ob structive pulmonary disease 76828096 J44.9 Allergic rhinitis 104171 04 J30.9 Benign pro static hyperplasia 649724254 N40.0 Insomnia c o-occurrent and due to medical condition 1572684539 9105 G47.01 [id number] Lali Jose [address] [address] 09/27/2025 08:03:34 09/27/2025 09:24:38 Diabetes mellitus 55609736 E11.9 67074 Low back pain 944386856 M54.50 332258 Chronic ob structive pulmonary disease 22828952 J44.9 Allergic rhinitis 148793 04 J30.9 Vitamin D deficiency 347 75064 E55.9 Type 2 daniel betes mellitus without complication 366839485 E11.9 Benign pro static hyperplasia 176202709 N40.0 Insomnia c o-occurrent and due to medical condition 2871003793 9105 G47.01 Overweight in adulthood with body mass index of 25 or more but less than 30 172047471 Z68.26 045403 Health Concerns Section Related Observation LastModified by Organization Detai ls LastModified Time None Recorded Concern Status LastModified by Organization Details LastModified Time None Recorded Advance Directives Directive None Recorded Payers Insurance Date Sequence Insurance Name Policy Number Policy Harris Covered Member ID Harris Member ID Guarantor Name 06/05/2025 1 [place] PR[place] [facility]HMO[id number] [id number] Gavin Jimenez 06/05/2025 1 [place]MEDIC[place] REPLACEMENT HMO) [id number] [id number] Gavin Jimenez 06/05/2025 1 [place] Gavin Jimenez [id number] Gavin Jimenez 09/25/2025 2 [place] [facility] - FFS/TRADITIONA L Gavin Jimenez [id number] Gavin Jimenez 09/25/2025 [place] [employer] [facility] Gavin Jimenez [id number] Gavin Jimenez 09/29/2025 1 [employer] (MEDICARE REPLACEMENT/AD VANTAGE - PPO) Gavin Jimenez [id number] Gavin Jimenez 06/05/2025 1 [employer] (MEDICARE REPLACEMENT/AD VANTAGE - HMO) Gavin Jimenez [id number] Gavin Jimenez Notes Date Note Type Note [...] not had a fever or chills. Negrita Zavala, ANABELLA [address] [facility], [place], [address], [employer] 05/03/2024 16:32:22 05/05/2024 text/html Patient here [...] refilled other meds. Pt voices understanding. Lali Domingo, MERCHANDISE CLERK [address] [facility], [place], [address], [employer] 05/05/2024 15:43:58 08/04/2024 text/html pt here [...] pt denies cp, soa, dizziness, fatigue. Lali Domingo, ANBAELLA [address] [facility], [place], [address], [employer] 08/04/2024 12:19:22 06/05/2025 text/html pt here [...] he has not taken his meds today. Lali Domingo APRN [address] [facility], [place], [address], [employer] 06/05/2025 11:02:55 09/27/2025 text/html pt here [...] pt to rest x3 days. Lali Domingo, MERCHANDISE CLERK [address] [facility], [place], [address], [facility] [employer] 09/27/2025 18:47:52
--- OUTSIDE RECORDS SUMMARY | 2025-11-17 12:39 | XMS_ITS | Encounter Summary ---
Author Organization Healthcare Address [address] [place] [address] Care Team Providers Care Aircraft Communicator Name Role Phone Lali Domingo APRN Primary Care Provider Reason for Visit * Reason Onset Date Comments Med Refill 11/07/2025 Encounter Details Date Type Department Care Team (Late st Contact Info) Description 11/07/2025 Refill [facility] [address] [place] [address] Jessica Oakes APRN [address] [place] [address] Asthma, unspecified asthma severity, unspecified whether complicated, unspecified whether persistent; Chronic obstructive pulmonary disease, unspecified COPD type ([facility]) Social History Tobacco Use Types Packs/Day Years [...] Description 11/28/2025 11:10 AM EST Office Visit [place] [facility] [address] [place] [address] Jessica Oakes APRN [address] [place] [address] documented as of this encounter Visit Diagnoses Diagnosis Asthma, unspecified asthma severity, unspecified whether complicated, unspecified whether persistent Chronic obstructive pulmonary disease, unspecified COPD type ([facility]) documented in this encounter Additional Health Concerns Assessment Noted Time A fall risk assessment has been complete d for the patient 09/27/2024 3:50 PM EST A Body Mass Index follow-up plan has been documented for the patient 09/28/2024 1:26 PM EST documented as of this encounter Care Teams Aircraft Communicator Relationship Specialty Start Date End Date Lali Domingo APRN [id number] PCP - General 10/06/21 documented as of this encounter
--- OUTSIDE RECORDS SUMMARY | 2025-11-17 12:39 | XMS_ITS | Continuity of Care Document ---
Author Organization [facility], [place], [facility] Address [address] [place] [address] Care Team Providers Care Credit Interviewer Name Role Phone NICOLAS TAVARES Pallet Repairer GAVIN GONZALEZ Radio Repairer WENDY BOYCE Neurosurgeon Assessment Encounter Date Assessment Date Assessment LastModified by Organization Details LastModified Time 09/27/2025 09/27/2025 Patient presented for medication refill. Patient tolerating medication well at current dose without adverse effects. Refilled as below. Discussed plan with patient, who expressed understanding . Follow up as noted below. [email or web address] Not available 09/27/2025 18:45:51 Plan of Treatment Reminders Order Date Submit Date Provider Last Modified By Organization Details Last Modified Time Details Appointments None recorded. Lab HbA1c (hemoglobin A1c), blood [address], [address], 17:18:15 microalbumi n/creatinin e, mass ratio, urine [address], [address], 17:18:15 Referral None recorded. Procedures diabetic foot screen (PROC) 2024 025 [email or web address] Not available 09:45:36 Surgeries None recorded. Imaging XR, lumbar spine 2024 [facility], [address] [place] [address], [address], 15:07:50 Medication Orders cetirizine 10 mg tablet 2024 [facility], [address] [place] [address], [address], 12:03:19 hydrocodone 5 mg-acetamin ophen 325 mg tablet 2024 [facility], [address] [place] [address], [address], 5 05:01:47 ketorolac 60 mg/2 mL intramuscul ar solution [address], [address] [place] [address], [address], 18:46:18 Depo-Medrol 80 mg/mL suspension for injection [address], [address] [place] [address], [address], 5 18:46:18 albuterol sulfate HFA 90 mcg/actuati on aerosol inhaler 2024 025 [facility], [address] [place] [address], [address], 17:35:14 Trelegy Ellipta 100 mcg-62.5 mcg-25 mcg powder for inhalation 2024 025 [facility], [address] [place] [address], [address], 17:35:13 trazodone 50 mg tablet 2024 025 [facility], [address] [place] [address], [address], 10:57:48 ergocalcife rol (vitamin D2) 1,250 mcg (50,000 unit) capsule 2024 025 [facility], [address] [place] [address], [address], 17:35:12 Jardiance 25 mg tablet 2024 025 [facility], [address] [place] [address], [address], 10:42:48 metformin 1,000 mg tablet 2024 025 [facility], [address] [place] [address], [address], 10:42:49 tamsulosin 0.4 mg capsule 2024 025 [facility], [address] [place] [address], [address], 10:42:49 Patient TargetsNo targets recorded. Patient Instructions Encounter Date Encounter Id Patient Instructions Last Modified By Organization Details Last Modified Time 09/27/2025 [id number] diabetes foot health: care instructions [email or web address] Not available 09/27/2025 17:18:15 Reason for Referral None Reported. Results Created Date Observation Date Name Description Value Unit Range Abnormal Flag Note LastModifiedBy Organization Detail LastModifiedTime 09/27/2009/27/2025 micro album in/cr eatin ine, mass ratio , urine Microalbumin 30 Not Available [address], [address], 09/27/2025 08:25:36 09/27/20 25 09/27/2025 micro album in/cr eatin ine, mass ratio , urine Creatinine 300 Not Available Ster[facility] g [address], [address], 09/27/2025 08:25:36 09/27/20 25 09/27/2025 micro album in/cr eatin ine, mass ratio , urine Ratio <30 Not Available [address], [address], 09/27/2025 08:25:36 09/27/20 25 09/27/2025 HbA1c (hemo globi n A1c), blood HbA1c 6.0 Not Available [address], [address], 09/27/2025 08:24:45 09/20/20 25 09/20/2025 XR, chest No observ ation record ed. [address], [place], [address], 09/25/2025 09:56:52 09/27/20 XR, lumba r spine No observ ation record ed. [address], [address], 10/08/2025 15:14:59 10/10/20 25 10/10/2025 elect librado james am No observ ation record ed. [address], [place], [address], 10/12/2025 09:30:10 10/10/20 25 10/10/2025 stres s echoc ardio gram No observ ation record ed. [place] [id number], [place], [address], 10/12/2025 09:30:27 10/14/20 25 10/10/2025 US, doppl er echoc ardio gram No observ ation record ed. [facility] [place] [id number], [place], [address], 10/15/2025 08:25:25 11/08/20 25 11/08/2025 imagi ng/di agnos tic resul t No observ ation record ed. [facility] [address], [place], [address], 11/08/2025 13:26:57 11/10/20 25 11/08/2025 imagi ng/di agnos tic resul t No observ ation record ed. [facility] [address], [place], [address], 11/10/2025 01:28:59 Result Notes None recorded. Problems Name Problem SNOMED Code Status Onset Date Resolution Date Notes Provider Name and Address Organization Details Recorded Time Johanny [id number] Completed 201604/12/2017 Problem Code: K92.1; Problem Code Type: ICD-10; Not Available [facility] 2 20:49:49 Altered bowel function 25864809 Completed 201604/12/2017 Problem Code: R19.4; Problem Code Type: ICD-10; Not Available [facility] 2 20:49:59 Digestiv e symptom 877097302 Completed 201604/12/2017 Problem Code: 787.99; Problem Code Type: ICD-9; Not Available [facility] 2 20:50:00 Hematoch ezia 254833315 Completed 201604/12/2017 Problem Code: 578.1; Problem Code Type: ICD-9; Not Available [facility] 2 20:50:00 Hyperten sive disorder 03370798 Active 2016 Problem Code: I10; Problem Code Type: ICD-10; Not Available [facility] 2 20:49:49 Large prostate 972552940 Active 2016 Problem Code: N40.0; Problem Code Type: ICD-10; Not Available [facility] 2 20:49:50 Benign essentia l hyperten imchelle 6149561 Completed 201611/20/2021 Problem Code: 401.1; Problem Code Type: ICD-9; Not Available [facility] 2 20:49:58 Benign prostati c hyperpla angela 931370149 Completed 201611/20/2021 Problem Code: 600.00; Problem Code Type: ICD-9; Not Available [facility] 2 20:50:01 Silviano hematuri a 889214846 Completed 201610/31/2019 Problem Code: R31.0; Problem Code Type: ICD-10; Not Available [facility] 2 20:49:52 Primary malignan t neoplasm of urinary bladder 71435602 Completed 201611/20/2021 Problem Code: 188.8; Problem Code Type: ICD-9; Not Available [facility] 2 20:49:56 Silviano hematuri a 410275032 Completed 201610/31/2019 Problem Code: R31.0; Problem Code Type: ICD-10; Not Available [facility] 2 20:50:00 Acute exacerba tion of chronic obstruct arlene pulmonar y disease 847392167 Active 2016 Problem Code: J44.1; Problem Code Type: ICD-10; Not Available [facility] 2 20:49:49 Cough 32698731 Completed 201609/12/2017 Problem Code: R05; Problem Code Type: ICD-10; Not Available [facility] 2 20:49:51 Acute exacerba tion of chronic bronchit is 269792365 Completed 201608/25/2022 YAZMIN verma [employer] 2 10:17:07 Respirat ory symptom 702875164 Completed 201607/28/2017 Not Available [facility] 2 20:50:01 Benign essentia l hyperten michelle 0104411 Completed 201611/20/2021 Problem Code: 401.1; Problem Code Type: ICD-9; Not Available [facility] 2 20:49:58 Pain in right lower limb 432295081 Completed 201608/25/2022 YAZMIN LUCAS [email or web address] 10:17:07 Low back pain 595488212 Completed 201603/30/2020 Problem Code: M54.5; Problem Code Type: ICD-10; YAZMIN LUCAS [employer], [employer] 10:17:07 Benign essentia l hyperten michelle 4881773 Completed 201611/20/2021 Problem Code: 401.1; Problem Code Type: ICD-9; Not Available [facility] 20:49:58 Pain in limb 82564201 Completed 201608/25/2022 Problem Code: 729.5; Problem Code Type: ICD-9; YAZMIN LUCAS [employer], [employer] 2 10:17:07 Low back pain 546212010 Completed 201708/25/2022 Problem Code: M54.5; Problem Code Type: ICD-10; YAZMIN LUCAS [employer], [employer] 10:17:07 Mixed hyperlip idemia 402858931 Active 2018 Problem Code: E78.2; Problem Code Type: ICD-10; Not Available [facility] 20:49:48 Abnormal weight gain 943417069 Completed 201808/25/2022 Problem Code: R63.5; Problem Code Type: ICD-10; YAZMIN LUCAS [employer], [employer] 2 10:17:07 Abnormal finding on evaluati on procedur e 084143081 Completed 201808/25/2022 YAZMINTIMOTEO LUCAS [email or web address] 10:17:07 Acute bronchit is 09026743 Completed 201810/31/2019 Problem Code: J20.9; Problem Code Type: ICD-10; Not Available [facility] 2 20:49:49 Cough 16076421 Completed 201810/31/2019 Problem Code: R05; Problem Code Type: ICD-10; Not Available [facility] 20:49:51 Chest pain 25575734 Completed 201803/30/2020 Problem Code: R07.89; Problem Code Type: ICD-10; YAZMIN ROYNER [employer], [employer] 10:17:07 Body mass index 30+ - obesity 767064110 Completed 201803/04/2021 Problem Code: Z68.30; Problem Code Type: ICD-10; Not Available [facility] 20:49:55 Degenera tion of lumbar interver tebral disc 76251536 Active 2018 Problem Code: M51.36; Problem Code Type: ICD-10; Not Available [facility] 20:49:49 Degenera tion of lumbosac ral interver tebral disc 43093429 Completed 201808/25/2022 Problem Code: M51.37; Problem Code Type: ICD-10; YAZMIN LANCE [employer], [employer] 10:17:07 Body mass index 30+ - obesity 010231948 Completed 201803/04/2021 Problem Code: Z68.30; Problem Code Type: ICD-10; Not Available [facility] 20:50:02 Low back pain 309925659 Completed 201803/30/2020 Problem Code: M54.5; Problem Code Type: ICD-10; YAZMIN LUCAS null, [employer] 10:17:07 Pain in thoracic spine 236676676 Completed 201808/25/2022 Problem Code: M54.6; Problem Code Type: ICD-10; YAZMINTIMOTEO LUCAS null, [employer] 10:17:07 Insomnia co-occur rent and due to medical conditio n 70096160274 105 Active 2018 Problem Code: G47.01; Problem Code Type: ICD-10; YAZMIN verma, [employer] 2 10:17:21 Low back pain 831106755 Completed 201803/30/2020 Problem Code: M54.5; Problem Code Type: ICD-10; YAZMIN verma, [employer] 10:17:07 Body mass index 30+ - obesity 203906099 Completed 201803/04/2021 Problem Code: Z68.30; Problem Code Type: ICD-10; Not Available [facility] 2 20:49:54 Hematoma of thigh 534601223 Completed 201903/04/2021 Problem Code: S70.12XD ; Problem Code Type: ICD-10; Not Available [facility] 2 20:49:52 General examinat ion of patient Completed 201903/04/2021 Not Available [facility] 2 20:49:53 Body mass index 30+ - obesity 800505243 Completed 201903/04/2021 Problem Code: Z68.30; Problem Code Type: ICD-10; Not Available [facility] 2 20:49:54 Chest pain 16452738 Completed 201908/25/2022 Problem Code: R07.89; Problem Code Type: ICD-10; YAZMIN verma, [employer] 2 10:17:07 Body mass index 30+ - obesity 558852080 Completed 201903/04/2021 Problem Code: Z68.30; Problem Code Type: ICD-10; Not Available [facility] 2 20:49:55 Nicotine dependen ce 45070230 Active 2020 Problem Code: F17.200; Problem Code Type: ICD-10; Not Available [facility] 2 20:49:49 Body mass index 30+ - obesity 061099730 Completed 202011/20/2021 Problem Code: Z68.30; Problem Code Type: ICD-10; Not Available [facility] 2 20:49:56 Myositis 68759966 Completed 202008/25/2022 Problem Code: M60.9; Problem Code Type: ICD-10; [employer]MIN [employer] 10:17:07 Cough 84787252 Completed 202011/20/2021 Problem Code: R05; Problem Code Type: ICD-10; Not Available [facility] 20:49:51 COVID-19 710045531 Completed 202011/20/2021 Problem Code: U07.1; Problem Code Type: ICD-10; Not Available [facility] 20:49:53 Exposure to SARS-CoV -2 Completed 202008/25/2022 Problem Code: Z20.822; Problem Code Type: ICD-10; [employer]MIN [employer]. 10:17:07 Swelling / lump finding Completed 202002/13/2022 Problem Code: R22.9; Problem Code Type: ICD-10; Not Available [facility] 20:49:52 Myositis 77099356 Completed 202102/13/2022 Problem Code: M60.9; Problem Code Type: ICD-10; [employer]MIN [employer]. 10:17:07 Acute respirat ory infectio ns 392529892 Completed 202108/25/2022 Problem Code: J22; Problem Code Type: ICD-10; YAZMIN verma, [employer] 10:17:07 Wheezing 59687400 Active 2021 Problem Code: R06.2; Problem Code Type: ICD-10; [employer]. 10:17:27 Body mass index 30+ - obesity 064173549 Active 2021 Problem Code: Z68.30; Problem Code Type: ICD-10; Not Available [facility] 20:49:55 Puncture wound of hand 755085320 Completed 202108/25/2022 Problem Code: S61.432A ; Problem Code Type: ICD-10; YAZMIN verma, [employer] 2 10:17:07 Type 2 diabetes mellitus 95971876 Active 2023 Margoth Bartonlly null, [employer] 4 08:33:05 Lacerati on of right forearm 44108233822 204648 Active 2023 Negrita Zavala, [employer] [address] [place], [address] , [employer] 4 16:20:34 Cellulit is of right forearm 37605116144 524537 Active 2023 Negrita Zavala, [employer] [address] [place], [address] , [employer] 4 16:24:03 Type 2 diabetes mellitus without complica tion 014588304 Active 2023 Margoth Bartonlly null, [employer] 4 13:30:24 Overweig ht in adulthoo d with body mass index of 25 or more but less than 30 063580204 Active 2024 Margoth Karin null, [employer] 5 15:06:19 Hyperlip idemia 33181011 Active 2024 Margoth Frazier null, [employer] 5 15:06:49 Hypergly cemia 80969520 Active 2024 Margoth [place] null, [employer] 5 15:06:50 Fatigue 23828484 Active 2024 Margoth Frazier null, [employer] 5 15:06:50 Nocturia 576972319 Active 2024 Margoth Karin null, [employer] 5 15:06:54 Diabetes mellitus 31246994 Active 2024 Margoth verma [email or web address] 08:24:41 Problem Notes None recorded. Procedures Surgical History Date Name Laterality Status Provider Name and Address Organization Details Recorded Time procedure on urinary bladder completed [facility] 08/25/2022 10:19:49 repair of aneurysm of aorta completed [facility] 08/25/2022 10:20:42 Stent completed [facility] 10/19/2022 15:33:35 Imaging Results None recorded. Procedure [...] Updated DateTime 5 185.42 cm 26.7 kg/m2 54953.6 6 g 97 % 78 /min 150/82 mm[Hg] 162/88 mm[Hg] 138/90 mm[Hg] Margoth Frazier [employer], [employer] W[employer]. 5 09:04:14 Social History Question Answer Notes LastModified by Organizat ion Details LastModified Time Tobacco Smoking Status Current Some Day Smoker YAZMIN verma, [employer] 08/25/2022 10:19:13 Are You Blind Or Do You Have Difficulty Seeing? No [email or web address] Information n ot available 08/25/2022 What Is [...] Do You Have Serious Difficulty Hearing? No [email or web address] Information not available 08/25/2022 What Was The Date Of Your Most Recent Tobacco Screening? 09/27/2025 Information not available 09/27/2025 What Is Your Current Pack Years? 30ormorepack years [email or web address] Information not available 08/25/2022 What Is Your Relationship Status? Information not available 08/25/2022 Do You Have Smoke And Carbon Monoxide Detectors In Your Home? Yes Information not available 04/27/2023 How Much Tobacco Do You Smoke? 1 PPD [email or web address] Information not available 08/25/2022 Has Tobacco Cessation Counseling Been Provided? Yes Information not available 04/27/2023 On What Date Was Tobacco Cessation Counseling Provided? 09/27/2025 Information not available 09/27/2025 Have You Recently Traveled Abroad? No Information not available 04/27/2023 Do You Have Difficulty Walking Or Climbing Stairs? No Information not available 08/25/2022 Are You Currently In School? No [email or web address] Information not available 08/25/2022 Sex: Unknown Functional Status Question Answer Note LastModified by Organizat ion Details LastModified Time Do you use any illicit or recreational drugs? No Information not available 04/27/2023 What is your level of alcohol consumption? None Information not available 04/27/2023 Are you currently employed? No [email or web address] Information not available 08/25/2022 Do you have transportation difficulties? No [email or web address] Information not available 08/25/2022 Are you able to walk independently without assistance or assistive devices? [email or web address] Information not available 08/25/2022 Do you have difficulty doing errands alone? No [email or web address] Information not available 08/25/2022 Are you able to care for yourself independently? Yes [email or web address] Information not available 08/25/2022 Do you have difficulty dressing, bathing, grooming, or toileting? No Information not available 08/25/2022 Mental Status Question Answer Note LastModified by Organization D etails LastModified Time Do you have difficulty concentrating, remembering or making decisions? No [email or web address] Information no t available 08/25/2022 Family History Relationship Description Onset Age of this Age Resolved Age Notes LastModified by Organization Details LastModified Time Father Family history of Myocardial infarction [email or web address] Not available 02/2022 10:18:04 Medical History Condition [...] conjugate PCV 13 5 completed Not Available [facility] 07/28/2022 23:04:32 COVID-19 vaccine, vector-nr, rS-Ad26, PF, 0.5 mL 1 completed Angie verma, [employer] 05/03/2024 16:05:03 Tdap 2 completed YAZMIN verma [employer] 10/19/2022 15:23:42 zoster recombinant 4 completed Margoth verma, [place] [employer] 04/07/2024 10:42:02 Tdap 4 completed Negrita Zavala APRN [address] [place], [address], [facility] 05/03/2024 16:30:11 Influenza, split virus, quadrivalent, PF 2 completed Angie verma, [place] [employer] 05/03/2024 16:05:03 Influenza, split virus, quadrivalent, PF 5 completed Angie verma, [place] [employer] 05/03/2024 16:05:03 Pneumococcal conjugate PCV20, polysaccharide KCO841 conjugate, adjuvant, PF 4 completed Not Available [facility] 09/27/2025 08:22:01 Past Encounters Encounter ID Performer Location Encounter Start Date Encounter Closed Date Diagnosis/Indication Diagnosis SNOMED-CT Code Diagnosis ICD10 Code Diagnosis IMO Codes Diagnosis Note [id number] Lali Domingo, [address] [address] 09/27/2025 08:03:34 09/27/2025 09:24:38 Diabetes mellitus 44109378 E11.9 22516 Low back pain 600909353 M54.50 854169 Chronic ob structive pulmonary disease 21089767 J44.9 Allergic rhinitis 290700 04 J30.9 Vitamin D deficiency 347 30514 E55.9 Type 2 daniel betes mellitus without complication 238778310 E11.9 Benign pro static hyperplasia 337063380 N40.0 Insomnia c o-occurrent and due to medical condition 2639149182 9105 G47.01 Overweight in adulthood with body mass index of 25 or more but less than 30 645553552 Z68.26 141651 Health Concerns Section Related Observation LastModified by Organization Detai ls LastModified Time None Recorded Concern Status LastModified by Organization Details LastModified Time None Recorded Payers Encounter Date Sequence Insurance Name Policy Number Policy Harris Covered Member ID Harris Member ID Guarantor Name 09/27/2025 2 [place] [employer] - FFS/TRADITIO NAL Gavin Jimenez [id number] Gavin Jimenez 09/27/2025 1 [employer] (MEDICARE REPLACEMENT/ ADVANTAGE - PPO) Gavin Jimenez [id number] Gavin Jimenez Notes Date Note Type Note [...] rest x3 days. Lali Domingo APRN [address] [facility], [place], [address], [facility] [employer] 09/27/2025 18:47:52
--- OUTSIDE RECORDS SUMMARY | 2025-11-17 12:39 | XMS_ITS | Encounter Summary ---
Author Organization Healthcare Address [address] [place] [address] Care Team Providers Care Poultry Picking Machine Tender Name Role Phone Lali Domingo CHANGE MANAGEMENT Primary Care Provider [phone] Encounter Details Date Type Department Care Team (Late st Contact Info) Description 08/04/2024 Orders Only External Location [address] [place] [address] Winston Bryant, DO [address] [place] [address] Social History Tobacco Use Types [...] Description 11/28/2025 11:10 AM EST Office Visit [facility] Medicine Specialties [address] [place] [address] Jessica Oakes APRN [address] [place] [address] documented as of this encounter Procedures Procedure [...] documented as of this encounter Care Teams Poultry Picking Machine Tender Relationship Specialty Start Date End Date Lali Domingo APRN [id number] PCP - General 10/06/21 documented as of this encounter
--- OUTSIDE RECORDS SUMMARY | 2025-11-17 12:39 | XMS_ITS | Clinical Summary ---
Author Organization [facility] Address [address] [place] [address] Care Team Providers Care Christian Counselor Name Role Phone Lali Domingo APRN Primary Care Provider [phone] Allergies No known active allergies Medications amLODIPine [...] Type Department Care Team Description 11/07/2025 Telephone [facility] Medicine Specialties [address] [place] [address] Jessica Oakes APRN 11/07/2025 Refill [facility] Medicine Specialties [address] [place] [address] Jessica Oakes, MANAGER LINE Asthma, unspecified asthma severity, unspecified whether complicated, [...] Description 11/28/2025 11:10 AM EST [facility] [address] [place] [address] Jessica Oakes S, MANAGER LINE [address] [place] [address] Health Maintenance Due Date Last Done Comments [...] [facility]-Zoster Vaccines (2 of 2) 06/02/2024 04/07/2024 YMM-SMKRO-11 Vaccine (2 - season) 2025 02/25/2021 [facility]-Influenza [...] Maintenance Insurance [place]ICAID-[place] MEDICARE Care Teams Christian Counselor Relationship Specialty Start Date End Date Lali Domingo APRN [id number] PCP - General 10/06/21
[2025-11-17 12:43] LABS: Albumin Level 4.8 g/dl (3.5-5.0); Chloride 99 mmol/L (98-107)
[2025-11-17 12:44] LABS: Potassium 3.6 mmoL/L (3.5-5.1); Sodium 140 mmol/L (136-145)
[2025-11-17 12:46] LABS: Alanine Aminotransferase 23 U/L (12-78); Anion Gap 13.6 mEq/L (5-15); Aspartate Amino Transferase 21 U/L (17-59); Blood Urea Nitrogen 16 mg/dl (9-20); Carbon Dioxide 31 mmol/L (22.0-30.0); Creatinine Clearance Estimated 88 mL/min (50-200); Creatinine,Serum 0.90 mg/dl (0.66-1.25); Estimated Glomerular Filt Rate 86 ml/min (>60); GFR (African American) 103 ML/MIN (>60)
[2025-11-17 12:47] LABS: Albumin/Globulin Ratio 1.4 (1.1-1.8); Alkaline Phosphatase 88 U/L (38-126); Bilirubin,Total 1.2 mg/dl (0.2-1.3); Calcium 9.8 mg/dl (8.4-10.2); Globulin 3.5 g/dL (1.3-3.2); Glucose 128 mg/dl (74-100); Total Protein,Serum 8.3 g/dl (6.3-8.2)
[2025-11-17] MEDS: IPRATROPIUM/ALBUTEROL 3 ML NEB 9 ML IH (12:49)
[2025-11-17] MEDS: MAGNESIUM SULFATE IN WATER 2 GM/50 ML PIGGYBACK IV (12:49)
[2025-11-17] MEDS: METHYLPREDNISOLONE SOD SUCC 125MG VIAL 125 MG IV (12:53)
[2025-11-17 12:55] LABS: NT Pro Brain Natriuretic Pep. 257 pg/mL (0-125)
[2025-11-17 13:00] LABS: Troponin I < 0.01 ng/ml (0.00-0.034)
[2025-11-17] MEDS: AZITHROMYCIN 500 MG in 0.9 % SODIUM CHLORIDE 250 ML 250 MG IV (13:08)
[2025-11-17 13:14] LABS: Coronavirus 19, PCR Not Detected (NotDetected); Influenza A, PCR Not Detected (NotDetected); Influenza B, PCR Not Detected (NotDetected)
[2025-11-17 13:18] LABS: Lactate Venous 1.2 mmol/L (0.4-2.0); VBG HCO3 26.2 mmol/L (23-30); VBG PCO2 42.1 mmol/L (35-51); VBG PH 7.41 mmol/L (7.31-7.41); VBG PO2 51.8 mmol/L (28-40)
[2025-11-17] MEDS: ALBUTEROL 0.083% 2.5 MG/3 ML NEB 20 MG IH (13:40)
--- NOTE | 2025-11-17 14:12 | HMH.PHAINT1 ---
Pharmacy Intervention Comments: MEDICATION RECONCILIATION COMPLETED ON PATIENT USING EXTERNAL FILL HISTORY FROM PHARMACY AND LIST FROM CARDIOLOGY OFFICE. -YRN LOPES, ROXANNED
[2025-11-17 16:11] LABS: Troponin I < 0.01 ng/ml (0.00-0.034)
--- NOTE | 2025-11-17 17:25 | EXP.HP ---
History of Present Illness *Admission Date: 11/17/25 *Reason for visit:: Shortness of breath *History of present illness: Brock Jimenez is a 60-year-old male with a medical history significant for COPD on room air, CAD with stent, former smoker who presents with progressive shortness of breath, productive cough. Patient states that started about 4 days ago has become progressively worse, productive cough is greenish color. No fever/chills, chest pain, abdominal pain. No recent sick contacts. Workup in the ED significant for WBC 11.4, BNP 257, negative for COVID-19/influenza. CXR suggestive of right lower lobe pneumonia. Received DuoNebs, Solu-Medrol, ceftriaxone, azithromycin. Continue have increased work of breathing, diffuse wheezing bilaterally. Given this presentation, ED provider discussed case with me and I decided to admit patient for further evaluation and management. [facility] Disclaimer: The information contained in this section may have been updated after the patient was seen, as this information can be updated by other users. Medical History (Updated 11/17/25 @ 16:22 by Mary Sahu RN) Hx of bladder cancer Left arm pain Angina pectoris Sinus tachycardia Atypical chest pain Tobacco abuse HHD (hypertensive heart disease) HTN (hypertension) HLD (hyperlipidemia) CAD (coronary artery disease) Surgical History (Updated 11/17/25 @ 16:23 by Mary Sahu RN) History of colostomy reversal History of colon resection Social History (Updated 11/17/25 @ 16:23 by Mary Sahu RN) Smoking Status: Former smoker tobacco type: cigarettes packs per day: 1 second hand exposure: No alcohol intake: never substance use type: denies use current occupational status: other Travel in the last 8 weeks?: Inside the [place] household members: spouse housing: house current occupational exposures/hazards: No caffeine: No Have you lived/traveled outside [place] in past 30 days?: No Contact w/someone who lives/traveled outside US past 30 days?: No Exposure to someone with infectious disease in past 14 days?: No Do you have a fever (greater than 100.4 F or 38 C)?: No Have you tested positive for COVID-19?: No Exposed to someone with COVID-19 in past 14 days?: No Do you have a sore throat?: No Do you have a cough?: No Do you have any weakness?: No Are you experiencing any nausea/vomitting?: No Do you have any diarrhea?: No Are you experiencing any unusual bleeding?: No Do you have any muscle aches/pain?: Yes Do you have any abdominal pain?: No Are you experiencing loss of taste or smell?: No Other Medical History Have you received the Flu Vaccine for this season: No Have you received the Pneumonia Vaccine: No Meds Home Medications and Allergies Home Medications ?Medication ?Instructions ?Recorded ?Confirmed ?Type albuterol sulfate 0.63 mg/3 mL 0.63 mg inhalation QIDP PRN 05/17/18 11/17/25 History solution for nebulization Shortness Of Breath albuterol sulfate 90 mcg/actuation 1 puff inhalation Q4HP PRN 05/17/18 11/17/25 History aerosol inhaler (Ventolin HFA) Shortness Of Breath trazodone 50 mg tablet 50 mg PO HS 08/20/20 11/17/25 History nitroglycerin 0.4 mg sublingual 0.4 mg sublingual Q5-15M PRN chest 01/24/25 11/17/25 Rx tablet pain #25 tabs ergocalciferol (vitamin D2) 1,250 1,250 mcg PO WEEKLY 09/20/25 11/17/25 History mcg (50,000 unit) capsule (Vitamin D2) fluticasone fur. 100 mcg-umeclid 1 ea inhalation DAILY 10/24/25 11/17/25 History 62.5 mcg-vilant 25 mcg inhalat.powder (Trelegy Ellipta) isosorbide mononitrate 120 mg 120 mg PO DAILY #90 tabs 10/24/25 11/17/25 Rx tablet,extended release 24 hr nadolol 40 mg tablet 40 mg PO DAILY #30 tabs 10/29/25 11/17/25 Rx amlodipine 5 mg tablet 5 mg PO DAILY 11/17/25 11/17/25 History aspirin 81 mg tablet,delayed 81 mg PO DAILY 11/17/25 11/17/25 History release (Adult Low Dose Aspirin) atorvastatin 80 mg tablet 80 mg PO DAILY 11/17/25 11/17/25 History clopidogrel 75 mg tablet 75 mg PO DAILY 11/17/25 11/17/25 History losartan 100 mg tablet 100 mg PO DAILY 11/17/25 11/17/25 History ranolazine 1,000 mg 1,000 mg PO BID 11/17/25 11/17/25 History tablet,extended release,12 hr tamsulosin 0.4 mg capsule 0.4 mg PO DAILY 11/17/25 11/17/25 History New Prescriptions to Start Prescriptions: Allergies Allergy/AdvReac Type Severity Reaction Status Date / Time No Known Allergies Allergy Verified 10/24/25 11:52 Exam Data for Last 24 hours Vital signs and Labs for Last 24 Hours: Temp Pulse Resp BP Pulse Ox O2 Del Method 98.3 F 78 16 136/81 94 L Room Air 11/17/25 16:00 11/17/25 16:00 11/17/25 16:00 11/17/25 16:00 11/17/25 16:00 11/17/25 16:00 Laboratory Results - last 24 hr 11/17/25 12:30: WBC 11.4 H, RBC 4.95, Hgb 16.0, Hct 46.8, MCV 94.5 H, MCH 32.3 H, MCHC 34.2, RDW 12.4, Plt Count 322, MPV 9.2, Neut % (Auto) 70.6, Lymph % (Auto) 14.9, [place] % (Auto) 12.0 H, Eos % (Auto) 1.4, Baso % (Auto) 0.7, Neut # (Auto) 8.0 H, Lymph # (Auto) 1.7, [place] # (Auto) 1.4 H, Eos # (Auto) 0.2, Baso # (Auto) 0.1, Sodium 140, Potassium 3.6, Chloride 99, Carbon Dioxide 31 H, Anion Gap 13.6, BUN 16, Creatinine 0.90, Estimated Creat Clear 88, Estimated GFR 86, Est GFR ( Amer) 103, Glucose 128 H, Calcium 9.8, Total Bilirubin 1.2, AST 21, ALT 23, Alkaline Phosphatase 88, Troponin I < 0.01, NT-Pro-B Natriuret Pep 257 H, Total Protein 8.3 H, Albumin 4.8, Globulin 3.5 H, Albumin/Globulin Ratio 1.4 11/17/25 13:08: VBG pH 7.41, VBG pCO2 42.1, VBG pO2 51.8 H, VBG HCO3 26.2, VBG Total CO2 27.5 H, VBG O2 Saturation 87.3 H, VBG Base Excess 1.6, VBG Lactic Acid 1.2 11/17/25 13:12: SARS-CoV-2 (PCR) Not detected, Influenza A Untype (PCR) Not detected, Influenza Type B (PCR) Not detected 11/17/25 15:35: Troponin I < 0.01 I & O for Last 24 hours: Intake & Output 11/14/25 11/15/25 11/16/25 11/17/25 23:59 23:59 23:59 23:59 Intake Total 300 / 300 Balance 300 / 300 Weight 82.185 kg Constitutional Constitutional: no acute distress and chronically ill appearing *Routine HEENT Exam Head: Present normocephalic Eye: Present EOMI and PERRL ENT: Present mucous membranes moist *Routine Neck Exam Neck: Present supple; Absent lymphadenopathy *Routine Respiratory Exam Respiratory: Present wheezes and diminished air movement; Absent CTA bilaterally *Routine Cardiovascular Exam Cardiovascular: Present RRR *Routine Abdominal Exam Abdominal: Present soft and normoactive bowel sounds; Absent tenderness *Routine Rectal Exam Rectal:: deferred *Routine Genitalia Exam Genitalia:: deferred *Routine Extremities Exam Extremities: Absent cyanosis, clubbing or edema *Routine Skin Exam Skin: Present warm; Absent rash *Routine Neurological Exam Neurological: Present alert and oriented X3 Assessment and Plan *Assessment and plan (1) Pneumonia: Status: Acute Category: Medical Code(s): J18.9 - Pneumonia, unspecified organism (2) Acute exacerbation of chronic obstructive pulmonary disease: Status: Acute Category: Medical Code(s): J44.1 - Chronic obstructive pulmonary disease with (acute) exacerbation Plan Brock Jimenez is a 60-year-old male with a medical history significant for COPD on room air, CAD with stent, former smoker who presents with progressive shortness of breath, productive cough. Patient states that started about 4 days ago has become progressively worse, productive cough is greenish color. No fever/chills, chest pain, abdominal pain. No recent sick contacts. Workup in the ED significant for WBC 11.4, BNP 257, negative for COVID-19/influenza. CXR suggestive of right lower lobe pneumonia. Received DuoNebs, Solu-Medrol, ceftriaxone, azithromycin. Continue have increased work of breathing, diffuse wheezing bilaterally. Given this presentation, ED provider discussed case with me and I decided to admit patient for further evaluation and management. #Acute COPD exacerbation ? Presented with progressive shortness of breath, adductive green cough. Found to be in COPD exacerbation. On room air. Adherent to home Trelegy. ? Initial WBC 11.4, without tachycardia. Initial VBG unremarkable. ? CXR suggestive of right lower lobe pneumonia. Mini respiratory panel normal. ? Follow-up full respiratory panel. ? Continue IV ceftriaxone 1 g daily, azithromycin. ? Follow-up sputum, blood cultures. ? Follow-up morning CBC. #CAD with stent #Hypertension ? Continue home aspirin, Plavix, nadolol 50 mg, ranolazine 1000 mg twice daily. Hold home Imdur, losartan for now given normal blood pressures. #BPH ? Continue home tamsulosin. #Insomnia ? Continue home trazodone. Full code DVT prophylaxis: Lovenox 40 mg
[2025-11-17] MEDS: IPRATROPIUM/ALBUTEROL 3 ML NEB IH (18:39)
[2025-11-17] MEDS: SODIUM CHLORIDE 3% 15ML NEB 3 ML IH (18:39)
[2025-11-17] MEDS: BUDESONIDE 0.5MG/2ML NEB 0.5 MG IH (18:39)
[2025-11-17] MEDS: RANOLAZINE 500MG ER TABLET 1000 MG PO (20:07)
[2025-11-17] MEDS: ATORVASTATIN 40MG TABLET 80 MG PO (20:07)
[2025-11-17] MEDS: TRAZODONE 50MG TABLET 50 MG PO (20:07)
[2025-11-18] VITALS (9 sets, daily range): BP systolic 120–141; BP diastolic 67–82; PULSE 66–84; RESP 16–20; TEMP 36.6–36.7; O2SAT 94–95; BMI 25.4
[2025-11-18] MEDS: IPRATROPIUM/ALBUTEROL 3 ML NEB IH ×3 (00:28→13:00)
--- NOTE | 2025-11-18 02:16 | PC.NURSE ---
Pt AOx4, pleasant. Tolerating room air. Pt states that he felt much better after receiving breathing treatments. VSS. Denies pain or any additional needs. Currently resting in bed with eyes open. Bed is low, locked, and call light is in reach.
[2025-11-18 06:23] LABS: Albumin Level 3.8 g/dl (3.5-5.0); Chloride 103 mmol/L (98-107); Potassium 4.0 mmoL/L (3.5-5.1); Sodium 136 mmol/L (136-145)
[2025-11-18 06:26] LABS: Alanine Aminotransferase 25 U/L (12-78); Albumin/Globulin Ratio 1.4 (1.1-1.8); Alkaline Phosphatase 73 U/L (38-126); Anion Gap 11.0 mEq/L (5-15); Aspartate Amino Transferase 22 U/L (17-59); Bilirubin,Total 0.5 mg/dl (0.2-1.3); Blood Urea Nitrogen 24 mg/dl (9-20); Carbon Dioxide 26 mmol/L (22.0-30.0); Creatinine Clearance Estimated 89 mL/min (50-200); Creatinine,Serum 0.70 mg/dl (0.66-1.25); Estimated Glomerular Filt Rate 114 ml/min (>60); GFR (African American) 138 ML/MIN (>60); Globulin 2.8 g/dL (1.3-3.2); Glucose 201 mg/dl (74-100); Total Protein,Serum 6.6 g/dl (6.3-8.2)
[2025-11-18 06:27] LABS: Calcium 9.3 mg/dl (8.4-10.2)
[2025-11-18 06:29] LABS: Hematocrit 38.6 % (42.0-52.0); Immature Granulocytes % 0.7 %; Mean Corpuscular HGB Conc 35.0 g/dL (31.8-35.4); Mean Corpuscular Hemoglobin 32.7 pg (27.0-31.2); Mean Corpuscular Volume 93.5 fl (80-94); Nucleated Red Blood Cells % 0 %; Platelet Count 283 K/mm3 (142-424); Red Blood Count 4.13 M/mm3 (4.60-6.20); Red Cell Distribution Width-SD 41.8 fL; White Blood Count 13.5 K/mm3 (4.8-10.8)
[2025-11-18] MEDS: BUDESONIDE 0.5MG/2ML NEB 0.5 MG IH (06:43)
[2025-11-18 06:59] LABS: Hemoglobin 13.4 g/dL (14.1-18.0)
[2025-11-18] MEDS: CLOPIDOGREL 75MG TAB 75 MG PO (09:20)
[2025-11-18] MEDS: ASPIRIN EC 81MG TABLET 81 MG PO (09:20)
[2025-11-18] MEDS: RANOLAZINE 500MG ER TABLET 1000 MG PO (09:21)
[2025-11-18] MEDS: NADOLOL 20MG TABLET 40 MG PO (09:21)
[2025-11-18] MEDS: DOXYCYCLINE HYCL 100 MG TABLET PO (09:21)
[2025-11-18] MEDS: TAMSULOSIN 0.4MG CAPSULE 0.4 MG PO (09:22)
--- NOTE | 2025-11-18 09:49 | EXP.DC.SUM ---
General Admission date:: 11/17/25 HPI HPI HPI: Brock Jimenez is a 60-year-old male with a medical history significant for COPD on room air, CAD with stent, former smoker who presents with progressive shortness of breath, productive cough. Patient states that started about 4 days ago has become progressively worse, productive cough is greenish color. No fever/chills, chest pain, abdominal pain. No recent sick contacts. Workup in the ED significant for WBC 11.4, BNP 257, negative for COVID-19/influenza. CXR suggestive of right lower lobe pneumonia. Received DuoNebs, Solu-Medrol, ceftriaxone, azithromycin. Continue have increased work of breathing, diffuse wheezing bilaterally. Given this presentation, ED provider discussed case with me and I decided to admit patient for further evaluation and management. Hospital Course Hospital Course Hospital Course: Brock Jimenez is a 60-year-old male with a medical history significant for COPD on room air, CAD with stent, former smoker who presents with progressive shortness of breath, productive cough. Patient states that started about 4 days ago has become progressively worse, productive cough is greenish color. No fever/chills, chest pain, abdominal pain. No recent sick contacts. Workup in the ED significant for WBC 11.4, BNP 257, negative for COVID-19/influenza. CXR suggestive of right lower lobe pneumonia. Received DuoNebs, Solu-Medrol, ceftriaxone, azithromycin. Continue have increased work of breathing, diffuse wheezing bilaterally. Given this presentation, ED provider discussed case with me and I decided to admit patient for further evaluation and management. #Acute COPD exacerbation ? Presented with progressive shortness of breath, productive green cough. Found to be in COPD exacerbation. On room air. Adherent to home Trelegy. ? Initial WBC 11.4, without tachycardia. Initial VBG unremarkable. ? CXR suggestive of right lower lobe pneumonia. Mini respiratory panel normal. ? Improved with ceftriaxone, azithromycin, DuoNebs, Pulmicort, steroids. On room air. Breathing easier. ? Discharged with Trelegy 100, prednisone 40 mg, doxycycline 100 mg twice daily, and DuoNebs as needed. ? Will follow-up with pulmonology within 2 weeks. #CAD with stent #Hypertension ? Continue home aspirin, Plavix, nadolol 50 mg, ranolazine 1000 mg twice daily, home Imdur, losartan. #BPH ? Continue home tamsulosin. #Insomnia ? Continue home trazodone. Exam Data for Last 24 hours Vital signs and Labs for Last 24 Hours: Temp Pulse Resp BP Pulse Ox O2 Del Method 98.1 F 76 16 139/79 94 L Room Air 11/18/25 08:00 11/18/25 08:00 11/18/25 08:00 11/18/25 08:00 11/18/25 08:00 11/18/25 08:00 Laboratory Results - last 24 hr 11/17/25 12:30: WBC 11.4 H, RBC 4.95, Hgb 16.0, Hct 46.8, MCV 94.5 H, MCH 32.3 H, MCHC 34.2, RDW 12.4, Plt Count 322, MPV 9.2, Neut % (Auto) 70.6, Lymph % (Auto) 14.9, [place] % (Auto) 12.0 H, Eos % (Auto) 1.4, Baso % (Auto) 0.7, Neut # (Auto) 8.0 H, Lymph # (Auto) 1.7, [place] # (Auto) 1.4 H, Eos # (Auto) 0.2, Baso # (Auto) 0.1, Sodium 140, Potassium 3.6, Chloride 99, Carbon Dioxide 31 H, Anion Gap 13.6, BUN 16, Creatinine 0.90, Estimated Creat Clear 88, Estimated GFR 86, Est GFR ( Amer) 103, Glucose 128 H, Calcium 9.8, Total Bilirubin 1.2, AST 21, ALT 23, Alkaline Phosphatase 88, Troponin I < 0.01, NT-Pro-B Natriuret Pep 257 H, Total Protein 8.3 H, Albumin 4.8, Globulin 3.5 H, Albumin/Globulin Ratio 1.4 11/17/25 13:08: VBG pH 7.41, VBG pCO2 42.1, VBG pO2 51.8 H, VBG HCO3 26.2, VBG Total CO2 27.5 H, VBG O2 Saturation 87.3 H, VBG Base Excess 1.6, VBG Lactic Acid 1.2 11/17/25 13:12: SARS-CoV-2 (PCR) Not detected, Influenza A Untype (PCR) Not detected, Influenza Type B (PCR) Not detected 11/17/25 15:35: Troponin I < 0.01 11/18/25 05:55: WBC 13.5 H, RBC 4.13 L, Hgb 13.4 L D, Hct 38.6 L, MCV 93.5, MCH 32.7 H, MCHC 35.0, RDW 12.2, Plt Count 283, MPV 9.2, Neut % (Auto) 84.5 H, Lymph % (Auto) 10.2, [place] % (Auto) 4.4, Eos % (Auto) 0.1, Baso % (Auto) 0.1, Neut # (Auto) 11.4 H, Lymph # (Auto) 1.4, [place] # (Auto) 0.6, Eos # (Auto) 0.0, Baso # (Auto) 0.0, Sodium 136, Potassium 4.0, Chloride 103, Carbon Dioxide 26, Anion Gap 11.0, BUN 24 H D, Creatinine 0.70 D, Estimated Creat Clear 89, Estimated GFR 114, Est GFR ( Amer) 138 D, Glucose 201 H D, Calcium 9.3, Total Bilirubin 0.5, AST 22, ALT 25, Alkaline Phosphatase 73, Total Protein 6.6, Albumin 3.8 D, Globulin 2.8, Albumin/Globulin Ratio 1.4 I & O for Last 24 hours: Intake & Output 11/15/25 11/16/25 11/17/25 11/18/25 23:59 23:59 23:59 23:59 Intake Total 570 / 930 720 / 720 Output Total 0 / 0 Balance 570 / 930 720 / 720 Weight 82.185 kg 82.327 kg Microbiology Reports for the Last 24 Hours: Microbiology 11/17/25 18:54 Sputum - Expectorated Sputum Gram Stain - Final Constitutional Constitutional: no acute distress *Routine HEENT Exam Head: Present normocephalic Eye: Present EOMI and PERRL ENT: Present mucous membranes moist *Routine Neck Exam Neck: Present supple; Absent lymphadenopathy *Routine Respiratory Exam Respiratory: Present wheezes; Absent CTA bilaterally *Routine Cardiovascular Exam Cardiovascular: Present RRR *Routine Abdominal Exam Abdominal: Present soft and normoactive bowel sounds; Absent tenderness *Routine Extremities Exam Extremities: Absent cyanosis, clubbing or edema *Routine Skin Exam Skin: Present warm; Absent rash *Routine Neurological Exam Neurological: Present alert and oriented X3 Results Data Completed and Pending Labs on day of discharge: Labs from last 24 hours 11/18/25 11/17/25 11/17/25 05:55 15:35 13:12 WBC 13.5 H RBC 4.13 L Hgb 13.4 L D Hct 38.6 L MCV 93.5 MCH 32.7 H MCHC 35.0 RDW 12.2 Plt Count 283 MPV 9.2 Neut % (Auto) 84.5 H Lymph % (Auto) 10.2 [place] % (Auto) 4.4 Eos % (Auto) 0.1 Baso % (Auto) 0.1 Neut # (Auto) 11.4 H Lymph # (Auto) 1.4 [place] # (Auto) 0.6 Eos # (Auto) 0.0 Baso # (Auto) 0.0 VBG pH VBG pCO2 VBG pO2 VBG HCO3 VBG Total CO2 VBG O2 Saturation VBG Base Excess VBG Lactic Acid Sodium 136 Potassium 4.0 Chloride 103 Carbon Dioxide 26 Anion Gap 11.0 BUN 24 H D Creatinine 0.70 D Estimated Creat Clear 89 Estimated GFR 114 Est GFR ( Amer) 138 D Glucose 201 H D Calcium 9.3 Total Bilirubin 0.5 AST 22 ALT 25 Alkaline Phosphatase 73 Troponin I < 0.01 NT-Pro-B Natriuret Pep Total Protein 6.6 Albumin 3.8 D Globulin 2.8 Albumin/Globulin Ratio 1.4 SARS-CoV-2 (PCR) Not detected Influenza A Untype (PCR) Not detected Influenza Type B (PCR) Not detected 11/17/25 11/17/25 13:08 12:30 WBC 11.4 H RBC 4.95 Hgb 16.0 Hct 46.8 MCV 94.5 H MCH 32.3 H MCHC 34.2 RDW 12.4 Plt Count 322 MPV 9.2 Neut % (Auto) 70.6 Lymph % (Auto) 14.9 [place] % (Auto) 12.0 H Eos % (Auto) 1.4 Baso % (Auto) 0.7 Neut # (Auto) 8.0 H Lymph # (Auto) 1.7 [place] # (Auto) 1.4 H Eos # (Auto) 0.2 Baso # (Auto) 0.1 VBG pH 7.41 VBG pCO2 42.1 VBG pO2 51.8 H VBG HCO3 26.2 VBG Total CO2 27.5 H VBG O2 Saturation 87.3 H VBG Base Excess 1.6 VBG Lactic Acid 1.2 Sodium 140 Potassium 3.6 Chloride 99 Carbon Dioxide 31 H Anion Gap 13.6 BUN 16 Creatinine 0.90 Estimated Creat Clear 88 Estimated GFR 86 Est GFR ( Amer) 103 Glucose 128 H Calcium 9.8 Total Bilirubin 1.2 AST 21 ALT 23 Alkaline Phosphatase 88 Troponin I < 0.01 NT-Pro-B Natriuret Pep 257 H Total Protein 8.3 H Albumin 4.8 Globulin 3.5 H Albumin/Globulin Ratio 1.4 SARS-CoV-2 (PCR) Influenza A Untype (PCR) Influenza Type B (PCR) DS: Diagnosis Discharge Diagnosis (1) Pneumonia: Status: Acute Code(s): J18.9 - Pneumonia, unspecified organism (2) Acute exacerbation of chronic obstructive pulmonary disease: Status: Acute Code(s): J44.1 - Chronic obstructive pulmonary disease with (acute) exacerbation Meds Home Medications and Allergies Home Medications ?Medication ?Instructions ?Recorded ?Confirmed ?Type albuterol sulfate 0.63 mg/3 mL 0.63 mg inhalation QIDP PRN 05/17/18 11/17/25 History solution for nebulization Shortness Of Breath albuterol sulfate 90 mcg/actuation 1 puff inhalation Q4HP PRN 05/17/18 11/17/25 History aerosol inhaler (Ventolin HFA) Shortness Of Breath trazodone 50 mg tablet 50 mg PO HS 08/20/20 11/17/25 History nitroglycerin 0.4 mg sublingual 0.4 mg sublingual Q5-15M PRN chest 01/24/25 11/17/25 Rx tablet pain #25 tabs ergocalciferol (vitamin D2) 1,250 1,250 mcg PO WEEKLY 09/20/25 11/17/25 History mcg (50,000 unit) capsule (Vitamin D2) isosorbide mononitrate 120 mg 120 mg PO DAILY #90 tabs 10/24/25 11/17/25 Rx tablet,extended release 24 hr nadolol 40 mg tablet 40 mg PO DAILY #30 tabs 10/29/25 11/17/25 Rx amlodipine 5 mg tablet 5 mg PO DAILY 11/17/25 11/17/25 History aspirin 81 mg tablet,delayed 81 mg PO DAILY 11/17/25 11/17/25 History release (Adult Low Dose Aspirin) atorvastatin 80 mg tablet 80 mg PO DAILY 11/17/25 11/17/25 History clopidogrel 75 mg tablet 75 mg PO DAILY 11/17/25 11/17/25 History losartan 100 mg tablet 100 mg PO DAILY 11/17/25 11/17/25 History ranolazine 1,000 mg 1,000 mg PO BID 11/17/25 11/17/25 History tablet,extended release,12 hr tamsulosin 0.4 mg capsule 0.4 mg PO DAILY 11/17/25 11/17/25 History doxycycline hyclate 100 mg tablet 100 mg PO BID 3 days #6 tabs 11/18/25 Rx fluticasone fur. 100 mcg-umeclid 1 inh inhalation DAILY #28 ea 11/18/25 Rx 62.5 mcg-vilant 25 mcg inhalat.powder (Trelegy Ellipta) ipratropium 0.5 mg-albuterol 3 mg 3 ml inhalation Q4H PRN wheezing 11/18/25 Rx (2.5 mg base)/3 mL nebulization #180 mL soln prednisone 20 mg tablet 40 mg (2 x 20 mg) PO DAILY 3 days 11/18/25 Rx #6 tabs New Prescriptions to Start Prescriptions: doxycycline hyclate Zulema,Josh [id number] [Trelegy Ellipta] Zulema,Josh ipratropium-albuterol Zulema,Josh prednisone Zulema,Josh Allergies Allergy/AdvReac Type Severity Reaction Status Date / Time No Known Allergies Allergy Verified 10/24/25 11:52 Discharge Plan Disposition Patient Disposition: Home, Self-Care Condition: Fair Follow up Plan Follow up with: Lali Domingo APRN [Primary Care Provider, Medical] - Enter time for follow up Tina Lauren MD [Physician, Pulmonology] - 2 weeks Prescriptions/Medication Reconciliation: New ipratropium-albuterol 0.5 mg-3 mg(2.5 mg base)/3 mL solution for nebulization 3 ml inhalation Q4H PRN (Reason: wheezing) Qty: 180 0RF doxycycline hyclate 100 mg Tablet 100 mg PO BID 3 Days Qty: 6 0RF prednisone 20 mg Tablet 40 mg PO DAILY 3 Days Qty: 6 0RF Trelegy Ellipta 100-62.5-25 mcg Blister With Device 1 inh inhalation DAILY Qty: 28 0RF Continued albuterol sulfate 0.63 mg/3 mL solution for nebulization 0.63 mg INHALATION QIDP PRN (Reason: Shortness Of Breath) albuterol sulfate [Ventolin HFA] 90 mcg/actuation HFA aerosol inhaler 1 puff INHALATION Q4HP PRN (Reason: Shortness Of Breath) ergocalciferol (vitamin D2) [Vitamin D2] 1,250 mcg (50,000 unit) capsule 1,250 mcg PO WEEKLY Patient Comments: TAKE 1 CAPSULE BY MOUTH every WEEK FOR 90 DAYS isosorbide mononitrate 120 mg tablet extended release 24 hr 120 mg PO DAILY Qty: 90 3RF trazodone 50 mg tablet 50 mg PO HS nitroglycerin 0.4 mg tablet, sublingual 0.4 mg SUBLINGUAL Q5-15M PRN (Reason: chest pain) Qty: 25 1RF Rx Instructions: until response; do not exceed 3 doses per episode nadolol 40 mg Tablet 40 mg PO DAILY Qty: 30 3RF atorvastatin 80 mg tablet 80 mg PO DAILY clopidogrel 75 mg tablet 75 mg PO DAILY amlodipine 5 mg tablet 5 mg PO DAILY aspirin [Adult Low Dose Aspirin] 81 mg tablet,delayed release (DR/EC) 81 mg PO DAILY losartan 100 mg tablet 100 mg PO DAILY ranolazine 1,000 mg tablet extended release 12 hr 1,000 mg PO BID tamsulosin 0.4 mg capsule 0.4 mg PO DAILY Discontinued Trelegy Ellipta 100-62.5-25 mcg blister with device 1 ea inhalation DAILY Problem Reconciliation Problems Reviewed?: Yes Patient Discharge Instructions Patient Instructions: Stop Light Pneumonia, Stop Light COPD Print Language: Wolof Providers Primary Care Provider: Lali Domingo Admit Provider: Josh Poole Attending Provider: Josh Poole
[2025-11-18] MEDS: FLUTICASONE/UMECLIDIN/VILANTER 100/62.5/25MCG INHALER 1 PUFF IH (13:00)
--- NOTE | 2025-11-19 14:06 | SW/DCPLANNER ---
Faxed patients DME order for a nebulizer to [facility]. Carli Broges
--- NOTE | 2025-11-20 10:51 | SW/DCPLANNER ---
Spoke with patient's on the phone. Patient's stated that she is aware of his upcoming appointments. 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 Patient's stated that they were treated so good while being in the hospital. Patient's stated that they have no concerns or questions at this time. Carli Borges
== END 2025-11-18 15:00 | disposition home or self-care (01) ==
LOC: ER 13:37 → 2ND 13:48
PROVIDERS: Admitting Provider Student in an Organized Health Care Education/Training Program; Emergency Provider Emergency Medicine; PCP Nurse Practitioner; Visit Provider Student in an Organized Health Care Education/Training Program
DX: J18.9 Pneumonia, unspecified organism (principal); J44.1 Chronic obstructive pulmonary disease with (acute) exacerbation; I25.2 Old myocardial infarction; E78.5 Hyperlipidemia, unspecified; N40.0 Benign prostatic hyperplasia without lower urinary tract symptoms; G47.00 Insomnia, unspecified; R91.8 Other nonspecific abnormal finding of lung field; I49.3 Ventricular premature depolarization; I10 Essential (primary) hypertension; I25.119 Atherosclerotic heart disease of native coronary artery with unspecified angina pectoris; Z79.899 Other long term (current) drug therapy; Z79.02 Long term (current) use of antithrombotics/antiplatelets; Z79.82 Long term (current) use of aspirin; Z85.51 Personal history of malignant neoplasm of bladder; Z87.891 Personal history of nicotine dependence
CPT/HCPCS: 36415; 71045; 80053; 82803; 83880; 84484; 85025; 87040; 87070; 87205; 87636; 89220; 93005; 94640; 96361; 96365; 96366; 96367; 96372; 96375; 99285; G0378; J0456; J1650; J2919; J3475; J7050